=== PATIENT | male | born 1965 | race Caucasian/White ===

== ENCOUNTER → 2018-01-09 | Outpatient (CLI) | payer BC ==
--- NOTE | 2018-01-10 07:13 | US ---
EXAMINATION TYPE: US venous doppler duplex LE DATE OF EXAM: 01/09/2018 6:29 PM COMPARISON: NONE CLINICAL HISTORY: I83.891 Vericose of veins. Leg swelling SIDE PERFORMED: Bilateral TECHNIQUE: The lower extremity deep venous system is examined utilizing real time linear array sonog halima with graded compression, doppler sonography and color-flow sonography. VESSELS IMAGED: External Iliac Vein (EIV) Common Femoral Vein Deep Femoral Vein Greater Saphenous Vein * Femoral Vein Popliteal Vein Small Saphenous Vein * Proximal Calf Veins (* superficial vessels) Right Leg: Negative for DVT Left Leg: Negative for DVT Grayscale, color doppler, spectral doppler imaging performed of the deep veins of the bilateral lower extremities. There is normal flow, compressibility, vascular waveforms. IMPRESSION: No ultrasound evidence for acute DVT in either lower extremity. Compressible superficial or varicose veins documented at end of exam at bilateral calf level.
== END | disposition home or self-care (01) ==
LOC: RADUSMAIN 17:38
PROVIDERS: ATTEND Family Medicine
DX: R93.6 Abnormal findings on diagnostic imaging of limbs (principal); I83.891 Varicose veins of right lower extremity with other complications
CPT/HCPCS: 93970

== ENCOUNTER 2018-10-11 10:18 | Observation (INO) | payer BC ==
[2018-10-11] MEDS ORDERED: ASPIRIN 81 MG PO STA (10:29)
[2018-10-11] MEDS ORDERED: NITROGLYCERIN OINT 1 INCH/GM PACKET TOPICAL STA ×2 (10:29→10:40)
--- NOTE | 2018-10-11 10:30 | ED ---
General Adult HPI - General Chief complaint: Chest Pain Stated complaint: CHEST PAIN Time Seen by Provider: 10/11/18 10:27 Source: patient, RN notes reviewed Mode of arrival: ambulatory Limitations: no limitations - History of Present Illness Initial comments: Patient is a pleasant 53-year-old male presenting to the emergency Department with complaints of chest discomfort. Onset of symptoms was around 5 days ago. Symptoms started recurring again the past day or 2. Patient has tightness in his chest going towards left shoulder. Patient does feel a little bit lightheaded. Patient has been somewhat nauseated. No dyspnea. No diaphoresis. Patient did go to the ER [place] Saturday. - Related Data Home Medications Medication Instructions Recorded Confirmed Aspirin EC [Ecotrin Low Dose] 81 mg PO DAILY 10/11/18 10/11/18 Atorvastatin [Lipitor] 20 mg PO DAILY 10/11/18 10/11/18 Hydrochlorothiazide [Hydrodiuril] 25 mg PO DAILY 10/11/18 10/11/18 Lisinopril [Zestril] 10 mg PO DAILY 10/11/18 10/11/18 Allergies Allergy/AdvReac Type Severity Reaction Status Date / Time No Known Allergies Allergy Verified 10/11/18 10:55 Review of Systems ROS Statement: Those systems with pertinent positive or pertinent negative responses have been documented in the HPI. ROS Other: All systems not noted in ROS Statement are negative. Constitutional: Denies: fever Eyes: Denies: eye pain ENT: Denies: ear pain Respiratory: Denies: cough Cardiovascular: Reports: chest pain Endocrine: Denies: fatigue Gastrointestinal: Denies: abdominal pain Genitourinary: Denies: dysuria Musculoskeletal: Denies: back pain Skin: Denies: rash Neurological: Denies: weakness Past Medical History Past Medical History: Hypertension Additional Past Medical History / Comment(s): sarcoidosis History of Any Multi-Drug Resistant Organisms: None Reported Past Surgical History: Appendectomy, Orthopedic Surgery Past Psychological History: No Psychological Hx Reported Smoking Status: Never smoker Past Alcohol Use History: Occasional Past Drug Use History: None Reported General Exam Limitations: no limitations General appearance: alert, in no apparent distress Head exam: Present: atraumatic Eye exam: Present: normal appearance, PERRL ENT exam: Present: normal oropharynx Neck exam: Present: normal inspection Respiratory exam: Present: normal lung sounds bilaterally. Absent: chest wall tenderness Cardiovascular Exam: Present: regular rate, normal rhythm Expanded Peripheral pulses: 2+: Radial (R), Radial (L), Dorsalis Pedis (R), Dorsalis Pedis (L) GI/Abdominal exam: Present: soft. Absent: tenderness Extremities exam: Present: normal inspection. Absent: pedal edema, calf tenderness Neurological exam: Present: alert Psychiatric exam: Present: normal affect, normal mood Skin exam: Present: normal color Course Vital Signs 10/11/18 10/11/18 10/11/18 10:21 11:00 11:30 Temperature 97.9 F Pulse Rate 85 75 73 Respiratory 18 16 16 Rate Blood Pressure 154/102 148/107 134/94 O2 Sat by Pulse 98 96 97 Oximetry 10/11/18 12:15 Temperature Pulse Rate 76 Respiratory 16 Rate Blood Pressure O2 Sat by Pulse 98 Oximetry EKG Findings - EKG Comments: EKG Findings:: Normal sinus rhythm 81. MO 12. QRS 92. QT 362. QTC 420. Normal axis. Normal QRS. No acute ST change. Medical Decision Making - Medical Decision Making Patient reevaluated and updated. Case was discussed in detail with Dr. kate , who will admit covering for Dr. Kohler. No significant discomfort at this time. - Lab Data Result diagrams: 10/11/18 10:47 10/11/18 10:47 Lab Results 10/11/18 10/11/18 10/11/18 Range/Units 10:47 10:47 10:47 WBC 6.1 (3.8-10.6) k/uL RBC 5.05 (4.30-5.90) m/uL Hgb 16.9 (13.0-17.5) gm/dL Hct 47.3 (39.0-53.0) % MCV 93.6 (80.0-100.0) fL MCH 33.5 (25.0-35.0) pg MCHC 35.8 (31.0-37.0) g/dL RDW 12.6 (11.5-15.5) % Plt Count 212 (150-450) k/uL Neutrophils % 78 % Lymphocytes % 11 % Monocytes % 7 % Eosinophils % 2 % Basophils % 0 % Neutrophils # 4.7 (1.3-7.7) k/uL Lymphocytes # 0.6 L (1.0-4.8) k/uL Monocytes # 0.4 (0-1.0) k/uL Eosinophils # 0.1 (0-0.7) k/uL Basophils # 0.0 (0-0.2) k/uL PT (9.0-12.0) sec INR (<1.2) APTT (22.0-30.0) sec Sodium 140 (137-145) mmol/L Potassium 5.2 H (3.5-5.1) mmol/L Chloride 103 (98-107) mmol/L Carbon Dioxide 27 (22-30) mmol/L Anion Gap 10 mmol/L BUN 21 H (9-20) mg/dL Creatinine 1.03 (0.66-1.25) mg/dL Est GFR (CKD-EPI)AfAm >90 (>60 ml/min/1.73 sqM) Est GFR (CKD-EPI)NonAf 82 (>60 ml/min/1.73 sqM) Glucose 104 H (74-99) mg/dL Calcium 9.9 (8.4-10.2) mg/dL Magnesium 1.7 (1.6-2.3) mg/dL Total Bilirubin 1.2 (0.2-1.3) mg/dL AST 25 (17-59) U/L ALT 36 (21-72) U/L Alkaline Phosphatase 48 (38-126) U/L Creatine Kinase 93 (55-170) U/L CK-MB (CK-2) 0.7 (0.0-2.4) ng/mL Troponin I <0.012 (0.000-0.034) ng/mL Total Protein 8.0 (6.3-8.2) g/dL Albumin 5.1 H (3.5-5.0) g/dL 10/11/18 Range/Units 10:47 WBC (3.8-10.6) k/uL RBC (4.30-5.90) m/uL Hgb (13.0-17.5) gm/dL Hct (39.0-53.0) % MCV (80.0-100.0) fL MCH (25.0-35.0) pg MCHC (31.0-37.0) g/dL RDW (11.5-15.5) % Plt Count (150-450) k/uL Neutrophils % % Lymphocytes % % Monocytes % % Eosinophils % % Basophils % % Neutrophils # (1.3-7.7) k/uL Lymphocytes # (1.0-4.8) k/uL Monocytes # (0-1.0) k/uL Eosinophils # (0-0.7) k/uL Basophils # (0-0.2) k/uL PT 9.6 (9.0-12.0) sec INR 0.9 (<1.2) APTT 24.6 (22.0-30.0) sec Sodium (137-145) mmol/L Potassium (3.5-5.1) mmol/L Chloride (98-107) mmol/L Carbon Dioxide (22-30) mmol/L Anion Gap mmol/L BUN (9-20) mg/dL Creatinine (0.66-1.25) mg/dL Est GFR (CKD-EPI)AfAm (>60 ml/min/1.73 sqM) Est GFR (CKD-EPI)NonAf (>60 ml/min/1.73 sqM) Glucose (74-99) mg/dL Calcium (8.4-10.2) mg/dL Magnesium (1.6-2.3) mg/dL Total Bilirubin (0.2-1.3) mg/dL AST (17-59) U/L ALT (21-72) U/L Alkaline Phosphatase (38-126) U/L Creatine Kinase (55-170) U/L CK-MB (CK-2) (0.0-2.4) ng/mL Troponin I (0.000-0.034) ng/mL Total Protein (6.3-8.2) g/dL Albumin (3.5-5.0) g/dL - Radiology Data Radiology results: report reviewed (Computed tomography scan of the brain reveals non specific changes.), image reviewed (Chest x-ray shows no acute process) Disposition Clinical Impression: Chest pain Disposition: ADMITTED IP TO THIS HOSP Is patient prescribed a controlled substance at d/c from ED?: No Decision Time: 12:20
[2018-10-11 11:05] LABS: Basophils % (A) 0 %; Eosinophils # (A) 0.1 k/uL (0-0.7); Eosinophils % (A) 2 %; HCT 47.3 % (39.0-53.0); HGB 16.9 gm/dL (13.0-17.5); Lymphocytes # (A) 0.6 k/uL (1.0-4.8); Lymphocytes % (A) 11 %; MCH 33.5 pg (25.0-35.0); MCHC 35.8 g/dL (31.0-37.0); MCV 93.6 fL (80.0-100.0); Mean Platelet Volume 7.4; Monocytes # (A) 0.4 k/uL (0-1.0); Monocytes % (A) 7 %; Neutrophils # (A) 4.7 k/uL (1.3-7.7); Neutrophils % (A) 78 %; Platelet Count 212 k/uL (150-450); RBC 5.05 m/uL (4.30-5.90); RDW 12.6 % (11.5-15.5); WBC 6.1 k/uL (3.8-10.6)
--- NOTE | 2018-10-11 11:09 | XR ---
EXAMINATION TYPE: XR chest 2V DATE OF EXAM: 10/11/2018 COMPARISON: CT chest October 10, 2012 HISTORY: Chest pain and tightness since Saturday TECHNIQUE: Frontal and lateral views of the chest are obtained. FINDINGS: Faint nodular opacities right midlung redemonstrated with adjacent pleural thickening There is no new focal air space opacity, pleural effusion, or pneumothorax seen. The cardiac silhouette s ize is within normal limits. The osseous structures are intact. IMPRESSION: Chronic right midlung nodular opacities redemonstrated. No new acute cardiopulmonary pro cess.
[2018-10-11 11:15] LABS: ALT 36 U/L (21-72); AST 25 U/L (17-59); Albumin 5.1 g/dL (3.5-5.0); Alkaline Phosphatase 48 U/L (38-126); Anion Gap 10 mmol/L; Blood Urea Nitrogen 21 mg/dL (9-20); Calcium 9.9 mg/dL (8.4-10.2); Carbon Dioxide 27 mmol/L (22-30); Chloride 103 mmol/L (98-107); Creatine Kinase 93 U/L (55-170); Glucose 104 mg/dL (74-99); INR 0.9 (<1.2); Magnesium 1.7 mg/dL (1.6-2.3); Partial Thromboplastin Time 24.6 sec (22.0-30.0); Potassium 5.2 mmol/L (3.5-5.1); Prothrombin Time 9.6 sec (9.0-12.0); Sodium 140 mmol/L (137-145); Total Bilirubin 1.2 mg/dL (0.2-1.3)
[2018-10-11 11:40] LABS: Creatine Kinase MB 0.7 ng/mL (0.0-2.4); Troponin I <0.012 ng/mL (0.000-0.034)
--- NOTE | 2018-10-11 11:56 | CT ---
EXAMINATION TYPE: CT brain wo con DATE OF EXAM: 10/11/2018 HISTORY: Chest pain, tightness CT DLP: 1142.4 mGycm. Automated Exposure Control for Dose Reduction was Utilized. TECHNIQUE: CT scan of the head is performed without contrast. COMPARISON: None. FINDINGS: There is no acute intracranial hemorrhage or midline shift identified. Ventricles and sul ci are within normal limits in size for patient's age. There is vague areas of low-attenuation throu ghout the deep and periventricular white matter. Nonspecific finding without prior comparison. The g lobes are intact and the visualized sinuses are clear. IMPRESSION: No acute intracranial hemorrhage or midline shift. There is mild to moderate nonspecifi c white matter changes. Differential would favor product of chronic small vessel ischemic change in p atient of this age but other etiologies are not excluded without prior CT/MRI comparison.
[2018-10-11] MEDS ORDERED: NITROGLYCERIN SL TABS 0.4 MG TAB SUBLINGUAL PRN (12:23)
--- NOTE | 2018-10-11 16:29 | ECHOF ---
Referral Reason: MEASUREMENTS -------- HEIGHT: 182.9 cm WEIGHT: 84.8 kg BP: RVIDd: 3.2 cm (< 3.3) IVSd: 1.4 cm (0.6 - 1.1) LVIDd: 3.4 cm (3.9 - 5.3) LVPWd: 1.5 cm (0.6 - 1.1) IVSs: 1.4 cm LVIDs: 2.2 cm LVPWs: 1.9 cm Ao Diam: 2.5 cm (2.0 - 3.7) AV Cusp: 2.0 cm (1.5 - 2.6) LA Diam: 3.1 cm (2.7 - 3.8) MV EXCURSION: 15.271 mm (> 18.000) MV EF SLOPE: 39 mm/s (70 - 150) EPSS: 0.7 cm MV E Catrachito: 0.43 m/s MV DecT: 288 ms MV A Catr[place]ito: 0.71 m/s MV E/A Ratio: 0.60 RAP: 5.00 mmHg RVSP: 16.18 mmHg FINDINGS -------- Sinus rhythm. This was a technically good study. The left ventricular size is normal. There is moderate concentric left ventricular hypertrophy. O verall left ventricular systolic function is low-normal with, an EF between 50 - 55 %. The right ventricle is normal in size and function. The left atrium is normal in size. The right atrium is normal in size. The aortic valve is trileaflet, and appears structurally normal. No aortic stenosis or regurgitation. The mitral valve leaflets are mildly thickened. Mild mitral regurgitation is present. Trace tricuspid regurgitation present. The right ventricular systolic pressure, as measured by Dopp ler, is 16.18mmHg. Pulmonic valve appears structurally normal. The aortic root size is normal. Normal inferior vena cava with normal inspiratory collapse consistent with estimated right atrial pre ssure of 5 mmHg. The pericardium is normal. CONCLUSIONS -------- 1. Sinus rhythm. 2. This was a technically good study. 3. The left ventricular size is normal. 4. There is moderate concentric left ventricular hypertrophy. 5. Overall left ventricular systolic function is low-normal with, an EF between 50 - 55 %. 6. The right ventricle is normal in size and function. 7. The left atrium is normal in size. 8. The right atrium is normal in size. 9. The aortic valve is trileaflet, and appears structurally normal. No aortic stenosis or regurgitati on. 10. The mitral valve leaflets are mildly thickened. 11. Mild mitral regurgitation is present. 12. Trace tricuspid regurgitation present. 13. The right ventricular systolic pressure, as measured by Doppler, is 16.18mmHg. 14. Pulmonic valve appears structurally normal. 15. The aortic root size is normal. 16. Normal inferior vena cava with normal inspiratory collapse consistent with estimated right atrial pressure of 5 mmHg. 17. The pericardium is normal. TOLL TESTBOARD WORKER: Maryann So RDCS
[2018-10-11] MEDS: NITROGLYCERIN OINT 1 INCH/GM PACKET TOPICAL SCH ×2 (17:31→19:43)
--- NOTE | 2018-10-11 22:09 | HP ---
HISTORY AND PHYSICAL DATE OF ADMISSION: October 11, 2018. PRESENTING COMPLAINT: Chest pain. HISTORY OF PRESENTING COMPLAINT: A very pleasant 53 -year-old patient of Dr. Kohler whose chronic stable medical conditions include hypertension, hyperlipidemia, sarcoidosis under remission. About 6 days ago, the patient at work, felt dizzy, lightheaded, some chest tightness, went down to the [place] [facility]. They did cardiac enzymes, EKG. Patient was discharged. Next day he went to see his family doctor where he was set up with Cardiology for a stress test. Since that time, patient has not been feeling well. Does get dizzy, lightheaded, chest pressure, especially with activity, feels better sitting down. He finally decided to come in because of persistence of symptoms and be concerned for the same. REVIEW OF SYSTEMS: CONSTITUTIONAL: Tired. HEENT: None. RESPIRATORY: None. CARDIOVASCULAR: As above. GASTROINTESTINAL none. GENITOURINARY: None. MUSCULOSKELETAL: None. Dermatological, hematologic, lymphatic none. PSYCHIATRY none. NEUROLOGICAL: None. PAST MEDICAL HISTORY: Of hypertension, hyperlipidemia and sarcoidosis. PAST SURGICAL HISTORY: Appendectomy, chest tube in place. SOCIAL HISTORY: No smoking. No alcohol. . 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 FAMILY HISTORY: Family history of coronary artery disease. HOME MEDICATIONS: 1. Lipitor 20 mg a day. 2. Aspirin 81 mg a day. 3. Zestril 10 mg a day. 4. Hydrochlorothiazide 25 mg a day. ALLERGIES: None. PHYSICAL EXAMINATION: VITAL SIGNS: Temperature 97.4, pulse 66, respirations 16, blood pressure 154/82, pulse ox 96 percent on room air. GENERAL APPEARANCE: Average build, lying in bed, tired appearing. EYES: Pupils are equal. Conjunctivae normal. HEENT external appearance of nose and ears normal. Oral cavity normal. NECK: JVD not raised. Mass not palpable. RESPIRATORY: Effort normal. LUNGS: Clear. CARDIOVASCULAR: 1st and 2nd sounds normal. No edema. ABDOMEN: Soft, nontender. Liver and spleen not palpable. LYMPHATICS: No lymph nodes palpable in the neck and axilla. PSYCHIATRY: Alert and oriented x3. Mood and affect normal. NEUROLOGICAL: Pupils equal. Cranial nerves grossly intact. Power and sensation grossly intact. INVESTIGATIONS: White count 6.1, hemoglobin 16.9. Potassium 5.2, BUN 21, creatinine 1.03. Troponin times two negative. EKG tracing personally reviewed by me shows normal sinus rhythm. CT scan of the brain shows nonspecific findings. A 2D echocardiogram EF of 50-55 percent. Chest x-ray film personally reviewed by me shows prominent pulmonary artery. Some chronic changes. ASSESSMENT: 1. Possible unstable angina in a patient who has been having recurrent symptoms, especially with activity. Cardiac risk factors include hypertension, hyperlipidemia with negative troponin. 2. Essential hypertension. 3. Hyperlipidemia. 4. Sarcoidosis under remission. PLAN: The patient is currently on nitrate, aspirin, Lipitor. Because of persistent symptoms, the patient may need a cardiac catheterization. We will also do a carotid Doppler. Care was discussed with the patient. Questions were answered. Copy to Dr. Kohler. MMROSSIL / IJN: [id number] /
[2018-10-11 22:22] LABS: Cholesterol 193 mg/dL (<200); HDL Cholesterol 80 mg/dL (40-60); LDL Cholesterol,Calculated 93 mg/dL (0-99); Triglycerides 100 mg/dL (<150)
[2018-10-12] MEDS: NITROGLYCERIN OINT 1 INCH/GM PACKET TOPICAL SCH (03:51)
[2018-10-12] MEDS: ATORVASTATIN 20 MG TAB PO SCH (08:13)
[2018-10-12] MEDS: ENOXAPARIN 40 MG/0.4 ML SYRINGE SQ SCH (08:13)
[2018-10-12] MEDS: ASPIRIN 81 MG PO SCH (08:13)
[2018-10-12] MEDS: HYDROCHLOROTHIAZIDE 25 MG TAB PO SCH (08:14)
[2018-10-12] MEDS ORDERED: ASPIRIN 325 MG TAB PO SCH (09:00)
[2018-10-12] MEDS ORDERED: LISINOPRIL 10 MG TAB PO SCH (09:00)
[2018-10-12] MEDS ORDERED: LISINOPRIL 10 MG TAB PO STA (10:33)
--- NOTE | 2018-10-12 10:36 | P.CRDCN ---
History of Present Illness History of present illness: This is a pleasant 53-year-old male past medical history significant for sarcoidosis, hypertension and dyslipidemia. 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 We have been asked to see him in consultation for symptoms of chest discomfort. He states approximately one week ago while he was at work walking around doing is typical activity he started feeling a tight sensation in his chest in the left precordial region with radiation to the left shoulder. He also felt mildly short of breath at that time and was feeling intermittent headaches and dizziness. He went to the hospital in [place] for further evaluation. He states they checked an EKG and some blood work and told him everything was okay and he was sent home. Subsequently thereafter he saw his primary care physician and his blood pressure was noted to be uncontrolledon lisinopril. Hydrochlorothiazide added to his daily regimen and he was scheduled for an outpatient stress test this coming Saturday. However, over the weekend he has continued to have intermittent episodes of tightness in the left precordial region as well as dizziness and headache. He states the dizziness comes with position changes he notices it when he first gets up and whenever he does any sort of physical activity even just walking. On arrival to ED his blood pressure was 154/102 and 148/107. This morning was 140/91. His mother from a brain aneurysm, so the headaches he is having alarmed him greatly. CT brain obtained on admission reveals no acute intracranial hemorrhage or midline shift , mild to moderate nonspecific white matter changes differential would favor product of chronic small vessel ischemia. Echocardiogram obtained yesterday reveals preserved left ventricular systolic function with ejection fraction 50- 55%, moderate LVH and mild MR. EKG reveals sinus mechanism with no acute ST or T wave abnormalities noted. Chest x-ray with chronic right mid lung nodular opacities. No acute cardiopulmonary process noted. Laboratory data reviewed, WBC 6.1, hemoglobin 16.9, platelets 212, sodium 140, potassium 5.2, creatinine 1.03, cardiac enzymes negative 3, LDL 93 and HDL 80. Current cardiac medications include lisinopril 10 mg daily, hydrochlorothiazide 25 mg daily, atorvastatin 20 mg daily and aspirin 81 mg daily. At the time of my exam: CONSTITUTIONAL: Denies fever. Denies chills. EYES: Denies blurred vision. Denies vision changes. Denies eye pain. EARS, NOSE, MOUTH & THROAT: Denies headache. Denies sore throat. Denies ear pain. CARDIOVASCULAR: Denies chest pain. Denies shortness of breath. Denies orthopnea. Denies PND. Denies palpitations. RESPIRATORY: Denies cough. GASTROINTESTINAL: Denies abdominal pain. Denies diarrhea. Denies constipation. Denies nausea. Denies vomiting. MUSCULOSKELETAL: Denies myalgias. INTEGUMENTARY: Denies pruitis. Denies rash. NEUROLOGIC: Denies numbness. Denies tingling. Denies weakness. PSYCHIATRIC: Denies anxiety. Denies depression. ENDOCRINE: Denies fatigue. Denies weight change. Denies polydipsia. Denies polyurina. GENITOURINARY: Denies burning, hematuria or urgency with micturation. HEMATOLOGIC: Denies history of anemia. Denies bleeding. Blood pressure 140/91 heart rate 64 afebrile maintaining oxygen saturation on room air GENERAL: This is a 53-year-old male in no apparent distress at the time of my examination. HEENT: Head is atraumatic, normocephalic. Pupils are equal, round. Sclerae anicteric. Conjunctivae are clear. Mucous membranes of the mouth are moist. Neck is supple. There is no jugular venous distention. No carotid bruit is heard. LUNGS: Clear to auscultation no wheezes, rales or rhonchi. No chest wall tenderness is noted on palpation or with deep breathing. HEART: Regular rate and rhythm without murmurs, rubs or gallops. S1 and S2 heard. ABDOMEN: Soft, nontender. Bowel sounds are heard. No organomegaly noted. EXTREMITIES: No evidence of peripheral edema and no calf tenderness noted. VASCULAR: Radial and dorsalis pedis pulses palpated, no evidence of clubbing. NEUROLOGIC: Patient is awake, alert and oriented x3. ASSESSMENT Chest pain, atypical. An acute coronary event has been ruled out. Hypertension, uncontrolled causing dizziness and headaches Dyslipidemia PLAN An acute coronary event has been ruled out. Discontinue nitro-paste and increase activity and ambulation in the halls. Assess for any exertional chest discomfort. Increase lisinopril to 20 mg daily. NPO after midnight tonight for stress test in the morning. Further recommendations to follow based on clinical course. Nurse Practitioner note has been reviewed, I agree with a documented findings and plan of care. Patient was seen and examined. Past Medical History Past Medical History: Hyperlipidemia, Hypertension Additional Past Medical History / Comment(s): sarcoidosis History of Any Multi-Drug Resistant Organisms: None Reported Past Surgical History: Appendectomy, Orthopedic Surgery Additional Past Surgical History / Comment(s): chest tubes place Past Anesthesia/Blood Transfusion Reactions: No Reported Reaction Past Psychological History: No Psychological Hx Reported Smoking Status: Never smoker Past Alcohol Use History: Occasional Past Drug Use History: None Reported - Past Family History Father Additional Family Medical History / Comment(s): triple vessel CABG Mother Additional Family Medical History / Comment(s): brain aneurysm Medications and Allergies Home Medications Medication Instructions Recorded Confirmed Type Aspirin EC [Ecotrin Low Dose] 81 mg PO DAILY 10/11/18 10/11/18 History Atorvastatin [Lipitor] 20 mg PO DAILY 10/11/18 10/11/18 History Hydrochlorothiazide [Hydrodiuril] 25 mg PO DAILY 10/11/18 10/11/18 History Lisinopril [Zestril] 10 mg PO DAILY 10/11/18 10/11/18 History Allergies Allergy/AdvReac Type Severity Reaction Status Date / Time No Known Allergies Allergy Verified 10/11/18 10:55 Physical Exam Vitals: Vital Signs Temp Pulse Pulse Resp BP BP Pulse Ox 10/12/18 08:00 98.3 F 64 16 140/91 97 10/12/18 03:52 16 10/12/18 03:39 97.8 F 60 16 118/78 96 10/11/18 23:45 16 10/11/18 23:31 97.7 F 60 16 125/72 97 10/11/18 20:32 95 10/11/18 20:00 16 10/11/18 19:40 97.4 F L 66 16 155/82 96 10/11/18 16:42 98.7 F 78 18 156/93 97 10/11/18 16:06 98.8 F 85 18 130/87 97 10/11/18 15:45 98.3 F 76 16 136/72 97 10/11/18 14:00 16 10/11/18 12:52 16 10/11/18 12:15 76 16 98 10/11/18 11:30 73 16 134/94 97 10/11/18 11:00 75 16 148/107 96 Intake and Output 10/11/18 10/12/18 10/12/18 22:59 06:59 14:59 Other: Voiding Method Toilet Toilet Toilet # Voids 1 1 Results 10/11/18 10:47 10/11/18 10:47 Cardiac Enzymes 10/11/18 10/11/18 10/11/18 Range/Units 10:47 10:47 16:25 AST 25 (17-59) U/L CK-MB (CK-2) 0.7 (0.0-2.4) ng/mL Troponin I <0.012 <0.012 (0.000-0.034) ng/mL 10/11/18 Range/Units 22:38 AST (17-59) U/L CK-MB (CK-2) (0.0-2.4) ng/mL Troponin I <0.012 (0.000-0.034) ng/mL Coagulation 10/11/18 Range/Units 10:47 PT 9.6 (9.0-12.0) sec APTT 24.6 (22.0-30.0) sec Lipids 10/11/18 Range/Units 10:47 Triglycerides 100 (<150) mg/dL Cholesterol 193 (<200) mg/dL HDL Cholesterol 80 H (40-60) mg/dL CBC 10/11/18 Range/Units 10:47 WBC 6.1 (3.8-10.6) k/uL RBC 5.05 (4.30-5.90) m/uL Hgb 16.9 (13.0-17.5) gm/dL Hct 47.3 (39.0-53.0) % Plt Count 212 (150-450) k/uL Comprehensive Metabolic Panel 10/11/18 Range/Units 10:47 Sodium 140 (137-145) mmol/L Potassium 5.2 H (3.5-5.1) mmol/L Chloride 103 (98-107) mmol/L Carbon Dioxide 27 (22-30) mmol/L BUN 21 H (9-20) mg/dL Creatinine 1.03 (0.66-1.25) mg/dL Glucose 104 H (74-99) mg/dL Calcium 9.9 (8.4-10.2) mg/dL AST 25 (17-59) U/L ALT 36 (21-72) U/L Alkaline Phosphatase 48 (38-126) U/L Total Protein 8.0 (6.3-8.2) g/dL Albumin 5.1 H (3.5-5.0) g/dL Current Medications Generic Name Dose Route Start Last Admin Trade Name Freq PRN Reason Stop Dose Admin Aspirin 81 mg 10/12/18 09:00 10/12/18 08:13 Aspirin PO 81 mg DAILY [facility] Administration Atorvastatin Calcium 20 mg 10/12/18 09:00 10/12/18 08:13 Lipitor PO 20 mg DAILY [facility] Administration Enoxaparin Sodium 40 mg 10/12/18 09:00 10/12/18 08:13 Lovenox SQ 40 mg DAILY [facility] Administration Hydrochlorothiazide 25 mg 10/12/18 09:00 10/12/18 08:14 Hydrodiuril PO 25 mg DAILY [facility] Administration Lisinopril 10 mg 10/12/18 09:00 10/12/18 08:13 Zestril PO 10 mg DAILY [facility] Administration Nitroglycerin 1 inch 10/11/18 18:00 10/12/18 03:51 Nitro-Bid Oint TOPICAL Not Given Q6HR [facility] Nitroglycerin 0.4 mg 10/11/18 12:23 Nitrostat SUBLINGUAL Q5M PRN Chest Pain Sodium Chloride 10 ml 10/11/18 21:00 10/12/18 08:14 Saline Flush IV 10 ml BID [facility] Administration Intake and Output 10/11/18 10/12/18 10/12/18 22:59 06:59 14:59 Other: Voiding Method Toilet Toilet Toilet # Voids 1 1 10/11/18 10:47 10/11/18 10:47
[2018-10-12 11:25] VITALS: BMI 26.0
--- NOTE | 2018-10-12 13:37 | US ---
EXAMINATION TYPE: US carotid duplex BILAT DATE OF EXAM: 10/12/2018 COMPARISON: NONE CLINICAL HISTORY: 53-year-old male dizziness. Chest pain, no h/o stroke TECHNIQUE: Carotid duplex ultrasound examination. Indirect Doppler criteria is utilized. FINDINGS: EXAM MEASUREMENTS: RIGHT: Peak Systolic Velocity (PSV) cm/sec ----- Right CCA: 90.5 ----- Right ICA: 111.7 ----- Right ECA: 82.3 ICA/CCA ratio: 1.3 RIGHT: End Diastole cm/sec ----- Right CCA: 27.8 ----- Right ICA: 52.2 ----- Right ECA: 9.0 LEFT: Peak Systolic Velocity (PSV) cm/sec ----- Left CCA: 90.5 ----- Left ICA: 93.8 ----- Left ECA: 100.4 ICA/CCA ratio: 1.0 LEFT: End Diastole cm/sec ----- Left CCA: 26.7 ----- Left ICA: 26.7 ----- Left ECA: 15.7 VERTEBRALS (direction of flow): Right Vertebral: Antegrade Left Vertebral: Antegrade Rhythm: Normal Deputy Jailer notes: Mild homogeneous plaque seen with no significant stenosis. IMPRESSION: No hemodynamically significant stenosis appreciated in either internal carotid artery. Criteria for Assigning % of Stenosis / Diameter reduction (Estimation based on the indirect measurements of the internal carotid artery velocities (ICA PSV). 1. Normal (no stenosis)=ICA PSV < 125 cm/s: ratio < 2.0: ICA EDV<40 cm/s. 2. Less than 50% stenosis=ICA PSV < 125 cm/s: ratio < 2.0: ICA EDV<40 cm/s. 3. 50 to 69% stenosis=ICA PSV of 125 to 230 cm/s: ration 2.0 ? 4.0: ICA EDV 40-100 cm/s. 4. Greater than 70% stenosis to near occlusion= ICA PSV > 230 cm/s: ratio > 4.0: ICA EDV > 100 cm/s. 5. Near occlusion= ICA PSV velocities may be low or undetectable: variable ratio and ICA EDV. 6. Total occlusion=unable to detect flow.
--- NOTE | 2018-10-12 21:28 | PN ---
PROGRESS NOTE DATE OF SERVICE: October 12, 2018. PRESENTING COMPLAINT: Chest pain. INTERVAL HISTORY: Patient admitted with chest pain, has cardiac risk factors. No further episodes. Awaiting a stress test. Lying in bed. REVIEW OF SYSTEMS: Done for constitutional, cardiovascular, GI, pulmonary and relevant findings as above. CURRENT MEDICATIONS: Reviewed that include aspirin. PHYSICAL EXAMINATION: VITAL SIGNS: Temperature 97.7. Pulse 55, respiratory rate 18, blood pressure 148/75, pulse ox 96 percent on room air. GENERAL APPEARANCE: Lying in bed comfortable. Eyes: Pupils equal. Conjunctivae normal. NECK: JVD not raised. Mass not palpable. RESPIRATORY: Effort normal. LUNGS are clear. CARDIOVASCULAR: 1st and 2nd sounds normal. No edema. ABDOMEN: Soft, nontender. Liver and spleen not palpable. PSYCHIATRY: Alert and oriented times three. Mood and affect normal. INVESTIGATIONS: Potassium 4.5. Troponin negative. ASSESSMENT: 1. Possible unstable angina in a patient with cardiac risk factors awaiting stress test. 2. Essential hypertension. 3. Hyperlipidemia. 4. Sarcoidosis in remission. PLAN: Continue current medication and treatment plan. Carotid Doppler was unremarkable. Care was discussed with the patient. MMODL / IJN: [id number] /
[2018-10-13 03:38] VITALS: RESP 18
[2018-10-13] MEDS ORDERED: LISINOPRIL 20 MG TAB PO SCH (09:00)
--- NOTE | 2018-10-13 10:07 | P.PN ---
Subjective This is a pleasant 53-year-old male past medical history significant for sarcoidosis, hypertension and dyslipidemia. He denies history of coronary artery disease and does not follow regularly with a stock counter. He is seen and examined sitting up in bed with his at the bedside. He states yesterday while he was up and walking the halls he had another episode of chest discomfort, headache and dizziness. He sat down on the bed and his symptoms improved. Orthostatic blood pressures obtained are unremarkable and he was asymptomatic. Blood pressure this morning 113/73 heart rate 59 afebrile and maintaining oxygen saturation on room air. GENERAL: This is a 53-year-old male in no apparent distress at the time of my examination. HEENT: Head is atraumatic, normocephalic. Pupils are equal, round. Sclerae anicteric. Conjunctivae are clear. Mucous membranes of the mouth are moist. Neck is supple. There is no jugular venous distention. No carotid bruit is heard. LUNGS: Clear to auscultation no wheezes, rales or rhonchi. No chest wall tenderness is noted on palpation or with deep breathing. HEART: Regular rate and rhythm without murmurs, rubs or gallops. S1 and S2 heard. EXTREMITIES: No evidence of peripheral edema and no calf tenderness noted. ASSESSMENT Chest pain, atypical. An acute coronary event has been ruled out. Hypertension, uncontrolled causing dizziness and headaches Dyslipidemia PLAN Proceed with stress echocardiogram to assess for stress induced ischemia. If abnormality seen we will consider coronary angiography. If stress test is normal he is stable from a cardiac perspective. His symptoms may be related to blood pressure fluctuations, recommend he obtain a cuff to check his blood pressures at home and keep a log to bring with him to his follow up appointment with Dr. Hutchinson. Nurse Practitioner note has been reviewed, I agree with a documented findings and plan of care. Patient was seen and examined. Objective - Vital Signs Vital signs: Vital Signs Temp 98.0 F 10/13/18 08:00 Pulse 59 L 10/13/18 08:00 Resp 18 10/13/18 08:00 BP 113/73 10/13/18 08:00 Pulse Ox 95 10/13/18 08:29 Intake & Output 10/12/18 10/13/18 10/13/18 18:59 06:59 18:59 Weight 84.822 kg Other: Voiding Method Toilet Toilet # Voids 1 - Labs CBC & Chem 7: 10/11/18 10:47 10/12/18 10:20
[2018-10-13] MEDS: ATORVASTATIN 20 MG TAB PO SCH (11:44)
[2018-10-13] MEDS: HYDROCHLOROTHIAZIDE 25 MG TAB PO SCH (11:44)
[2018-10-13] MEDS: ASPIRIN 81 MG PO SCH (11:44)
[2018-10-13] MEDS: ENOXAPARIN 40 MG/0.4 ML SYRINGE SQ SCH (11:45)
[2018-10-13] MEDS ORDERED: LISINOPRIL 10 MG TAB PO SCH (12:00)
--- NOTE | 2018-10-13 15:08 | ECHOS ---
STRESS ECHOCARDIOGRAM INDICATIONS: Chest pain. BASELINE HEART RATE: 72 BASELINE BLOOD PRESSURE: 119/67 MAXIMUM HEART RATE: 150 MAXIMUM BLOOD PRESSURE: 169/63 85% MPHR: 140 100% MPHR: 165 METS: 10.3 MAXIMUM STAGE REACHED: 3 TOTAL EXERCISE TIME: 9:00 CLINICAL INFORMATION: Baseline rhythm sinus mechanism rate 72, normal axis, poor R-wave progression. Baseline blood pressure 119/67 mmHg. Patient exercised on Aneudy protocol for 9 minutes reaching peak rate of 150 beats per minute which is equal to 91% maximum predicted heart rate. Peak blood pressure 169/63 mmHg. Test was terminated secondary to fatigue. There was no chest pain. Electrocardiograph monitoring revealed no evidence of diagnostic ischemic ST deviation. FINDINGS: Baseline echocardiogram revealed normal wall motion. At peak exercise, there was normal wall motion augmentation with no hypokinesis or dyskinesis. CONCLUSION: 1. Average exercise tolerance with normal cardiac response to exercise. 2. Normal stress echocardiogram with no evidence of stress-induced ischemia. MMODL / IJN: [id number] /
[2018-10-13 15:50] VITALS: BP 131/83; PULSE 71; TEMP 97.7
--- NOTE | 2018-10-14 06:11 | DS ---
DISCHARGE SUMMARY DATE OF ADMISSION: 10/11/2018 DATE OF DISCHARGE: 10/13/2018 FINAL DIAGNOSES: 1. Chest pain, probably musculoskeletal. 2. Essential hypertension. 3. Hyperlipidemia. 4. Sarcoidosis under remission. HOSPITAL COURSE: This pleasant gentleman presented with episode of feeling dizzy, lightheaded, some chest tightness. Troponins were negative. Patient did have a carotid Doppler that was unremarkable. CT scan of the brain did not show any acute event. A 2-D echocardiogram showed the EF of 50% to 55%. No wall motion abnormality. Stress echocardiogram was negative. The patient cleared by Cardiology to be discharged. Patient is symptom-free up and about. CONSULTATION: Dr. Hutchinson from Cardiology. On examination, temperature 97.7 pulse 71, respiration 18, blood pressure 131/83 pulse ox 96% on room air. LUNGS: Fair entry. CARDIOVASCULAR: First and second sounds normal. HOME MEDICATIONS: 1. Aspirin 81 mg a day. 2. Lipitor 20 mg a day. 3. Hydrochlorothiazide 25 mg a day. 4. Zestril 10 mg p.o. daily. Follow up with Dr. Kohler in one week. Follow up with Dr. Hutchinson on 10/30/2018. MMODL / IJN: [id number] /
[2018-10-14] MEDS ORDERED: LISINOPRIL 10 MG TAB PO SCH (09:00)
== END 2018-10-13 16:11 | disposition home or self-care (01) ==
LOC: EC 10:18 → 1SOBS 12:23
PROVIDERS: ADMIT Hospitalist; ATTEND Hospitalist
DX: R07.89 Other chest pain (principal); E78.5 Hyperlipidemia, unspecified; I10 Essential (primary) hypertension; D86.9 Sarcoidosis, unspecified; Z90.49 Acquired absence of other specified parts of digestive tract; Z79.82 Long term (current) use of aspirin; Z79.899 Other long term (current) drug therapy; Z82.49 Family history of ischemic heart disease and other diseases of the circulatory system
CPT/HCPCS: 96372 ×2; 99285; 36415; 94760; 93005; 93306; 93351; 80061; 80053; 82550; 82553; 83735; 84132; 84484; 85025; 85610; 85730; 71046; 93880; 70450; G0378 ×3; J1650 ×2

== ENCOUNTER 2019-09-23 13:38 | Observation (INO) | payer BC ==
[2019-09-23 14:14] LABS: Basophils % (A) 1 %; Eosinophils # (A) 0.1 k/uL (0-0.7); Eosinophils % (A) 2 %; HCT 41.9 % (39.0-53.0); HGB 14.9 gm/dL (13.0-17.5); Lymphocytes # (A) 0.6 k/uL (1.0-4.8); Lymphocytes % (A) 12 %; MCH 34.2 pg (25.0-35.0); MCHC 35.6 g/dL (31.0-37.0); MCV 96.1 fL (80.0-100.0); Mean Platelet Volume 7.7; Monocytes # (A) 0.3 k/uL (0-1.0); Monocytes % (A) 7 %; Neutrophils # (A) 3.8 k/uL (1.3-7.7); Neutrophils % (A) 75 %; Platelet Count 214 k/uL (150-450); RBC 4.36 m/uL (4.30-5.90); RDW 12.5 % (11.5-15.5); WBC 5.1 k/uL (3.8-10.6)
[2019-09-23 14:21] LABS: Albumin 4.6 g/dL (3.5-5.0); Calcium 9.4 mg/dL (8.4-10.2); INR 0.9 (<1.2); Partial Thromboplastin Time 23.8 sec (22.0-30.0); Potassium 4.2 mmol/L (3.5-5.1); Prothrombin Time 9.6 sec (9.0-12.0); Total Protein 7.4 g/dL (6.3-8.2)
[2019-09-23] MEDS ORDERED: ASPIRIN 81 MG PO STA (14:51)
[2019-09-23] MEDS ORDERED: NITROGLYCERIN OINT 1 INCH/GM PACKET TOPICAL STA (14:51)
--- NOTE | 2019-09-23 14:58 | ED ---
General Adult HPI - General Chief complaint: Chest Pain Stated complaint: Chest pain Time Seen by Provider: 09/23/19 14:30 Source: patient, RN notes reviewed Mode of arrival: ambulatory Limitations: no limitations - History of Present Illness Initial comments: Patient is a pleasant 54-year-old male presenting to emergency Department from primary care physician with chest discomfort. Patient has had some lightheadedness over the past several days or weeks. Patient has some burning in his chest today. Burning is mild rated 3/10. No radiation. No associated dyspnea or nausea or diaphoresis. No history of similar symptoms previously. - Related Data Home Medications Medication Instructions Recorded Confirmed Aspirin EC [Ecotrin Low Dose] 81 mg PO DAILY 10/11/18 10/11/18 Atorvastatin [Lipitor] 20 mg PO DAILY 10/11/18 10/11/18 Hydrochlorothiazide [Hydrodiuril] 25 mg PO DAILY 10/11/18 10/11/18 Lisinopril [Zestril] 10 mg PO DAILY 10/11/18 10/11/18 Allergies Allergy/AdvReac Type Severity Reaction Status Date / Time No Known Allergies Allergy Verified 10/11/18 10:55 Review of Systems ROS Statement: Those systems with pertinent positive or pertinent negative responses have been documented in the HPI. ROS Other: All systems not noted in ROS Statement are negative. Constitutional: Denies: fever Eyes: Denies: eye pain ENT: Denies: ear pain Respiratory: Denies: dyspnea Cardiovascular: Reports: as per HPI, chest pain Endocrine: Reports: fatigue Gastrointestinal: Denies: abdominal pain Genitourinary: Denies: dysuria Musculoskeletal: Denies: back pain Skin: Denies: rash Neurological: Denies: weakness Past Medical History Past Medical History: Hyperlipidemia, Hypertension Additional Past Medical History / Comment(s): sarcoidosis History of Any Multi-Drug Resistant Organisms: None Reported Past Surgical History: Appendectomy, Orthopedic Surgery Additional Past Surgical History / Comment(s): chest tubes place Past Anesthesia/Blood Transfusion Reactions: No Reported Reaction Past Psychological History: No Psychological Hx Reported Smoking Status: Never smoker Past Alcohol Use History: Occasional Past Drug Use History: None Reported - Past Family History Father Additional Family Medical History / Comment(s): triple vessel CABG Mother Additional Family Medical History / Comment(s): brain aneurysm General Exam Limitations: no limitations General appearance: alert, in no apparent distress Head exam: Present: normocephalic Eye exam: Present: normal appearance, PERRL ENT exam: Present: normal oropharynx Neck exam: Present: normal inspection Respiratory exam: Present: normal lung sounds bilaterally. Absent: chest wall tenderness Cardiovascular Exam: Present: regular rate, normal rhythm Expanded Peripheral pulses: 2+: Radial (R), Radial (L), Dorsalis Pedis (R), Dorsalis Pedis (L) GI/Abdominal exam: Present: soft. Absent: tenderness Extremities exam: Present: normal inspection. Absent: pedal edema, calf tenderness Neurological exam: Present: alert Psychiatric exam: Present: normal affect, normal mood Skin exam: Present: normal color Course Vital Signs 09/23/19 09/23/19 09/23/19 13:43 14:49 15:36 Temperature 98.0 F Pulse Rate 72 68 69 Respiratory 20 18 18 Rate Blood Pressure 150/91 140/100 128/78 O2 Sat by Pulse 99 98 98 Oximetry EKG Findings - EKG Comments: EKG Findings:: Normal sinus rhythm 64. AR 168. QRS 90. QT 420. QTc 433. Normal axis. Normal QRS. No acute ST change. EKG from office is also reviewed Medical Decision Making - Medical Decision Making Patient reevaluated and resting comfortably in bed. Patient and family updated on results and plan. Case was discussed in detail with Dr. Carson, covering for Dr. Hou, who admits for Dr. Kohler. - Lab Data Result diagrams: 09/23/19 13:55 09/23/19 13:55 Lab Results 09/23/19 09/23/19 09/23/19 Range/Units 13:55 13:55 13:55 WBC 5.1 (3.8-10.6) k/uL RBC 4.36 (4.30-5.90) m/uL Hgb 14.9 (13.0-17.5) gm/dL Hct 41.9 (39.0-53.0) % MCV 96.1 (80.0-100.0) fL MCH 34.2 (25.0-35.0) pg MCHC 35.6 (31.0-37.0) g/dL RDW 12.5 (11.5-15.5) % Plt Count 214 (150-450) k/uL Neutrophils % 75 % Lymphocytes % 12 % Monocytes % 7 % Eosinophils % 2 % Basophils % 1 % Neutrophils # 3.8 (1.3-7.7) k/uL Lymphocytes # 0.6 L (1.0-4.8) k/uL Monocytes # 0.3 (0-1.0) k/uL Eosinophils # 0.1 (0-0.7) k/uL Basophils # 0.0 (0-0.2) k/uL PT 9.6 (9.0-12.0) sec INR 0.9 (<1.2) APTT 23.8 (22.0-30.0) sec Sodium 139 (137-145) mmol/L Potassium 4.2 (3.5-5.1) mmol/L Chloride 102 (98-107) mmol/L Carbon Dioxide 29 (22-30) mmol/L Anion Gap 8 mmol/L BUN 18 (9-20) mg/dL Creatinine 1.16 (0.66-1.25) mg/dL Est GFR (CKD-EPI)AfAm 82 (>60 ml/min/1.73 sqM) Est GFR (CKD-EPI)NonAf 71 (>60 ml/min/1.73 sqM) Glucose 97 (74-99) mg/dL Calcium 9.4 (8.4-10.2) mg/dL Magnesium 2.0 (1.6-2.3) mg/dL Total Bilirubin 1.0 (0.2-1.3) mg/dL AST 34 (17-59) U/L ALT 28 (4-49) U/L Alkaline Phosphatase 47 (38-126) U/L Troponin I (0.000-0.034) ng/mL Total Protein 7.4 (6.3-8.2) g/dL Albumin 4.6 (3.5-5.0) g/dL 09/23/19 Range/Units 13:55 WBC (3.8-10.6) k/uL RBC (4.30-5.90) m/uL Hgb (13.0-17.5) gm/dL Hct (39.0-53.0) % MCV (80.0-100.0) fL MCH (25.0-35.0) pg MCHC (31.0-37.0) g/dL RDW (11.5-15.5) % Plt Count (150-450) k/uL Neutrophils % % Lymphocytes % % Monocytes % % Eosinophils % % Basophils % % Neutrophils # (1.3-7.7) k/uL Lymphocytes # (1.0-4.8) k/uL Monocytes # (0-1.0) k/uL Eosinophils # (0-0.7) k/uL Basophils # (0-0.2) k/uL PT (9.0-12.0) sec INR (<1.2) APTT (22.0-30.0) sec Sodium (137-145) mmol/L Potassium (3.5-5.1) mmol/L Chloride (98-107) mmol/L Carbon Dioxide (22-30) mmol/L Anion Gap mmol/L BUN (9-20) mg/dL Creatinine (0.66-1.25) mg/dL Est GFR (CKD-EPI)AfAm (>60 ml/min/1.73 sqM) Est GFR (CKD-EPI)NonAf (>60 ml/min/1.73 sqM) Glucose (74-99) mg/dL Calcium (8.4-10.2) mg/dL Magnesium (1.6-2.3) mg/dL Total Bilirubin (0.2-1.3) mg/dL AST (17-59) U/L ALT (4-49) U/L Alkaline Phosphatase (38-126) U/L Troponin I <0.012 (0.000-0.034) ng/mL Total Protein (6.3-8.2) g/dL Albumin (3.5-5.0) g/dL - Radiology Data Radiology results: image reviewed (Chest x-ray question some reticular changes however this is also redemonstrated) Disposition Clinical Impression: Chest pain Disposition: ADMITTED IP TO THIS HOSP Is patient prescribed a controlled substance at d/c from ED?: No Referrals: Sree Kohler MD [Primary Care Provider] - 1-2 days Decision Time: 16:07
--- NOTE | 2019-09-23 15:24 | XR ---
EXAMINATION TYPE: XR chest 2V DATE OF EXAM: 09/23/2019 COMPARISON: 10/11/2018 HISTORY: Chest pain TECHNIQUE: Frontal and lateral views of the chest are obtained. FINDINGS: Fine reticular opacities in the peripheral right upper lung and right infrahilar region ar e redemonstrated. Remainder the lungs are well aerated. Cardiomediastinal split is stable and upper l imits of normal. Osseous structures are grossly intact. Mild degenerative change of the spine. IMPRESSION: Faint reticular opacities in the right upper lung and right infrahilar region. Endobronc hial or atypical infectious etiologies are considerations.
[2019-09-23] MEDS ORDERED: NITROGLYCERIN SL TABS 0.4 MG TAB SUBLINGUAL PRN (16:07)
[2019-09-23 17:45] VITALS: RESP 18
--- NOTE | 2019-09-23 17:58 | P.HPIM ---
History of Present Illness Chief Complaint: Chest pain This is a 54-year-old male who is coming to the hospital for evaluation of chest pain. Patient was sent from primary care physician's office. Past medical history includes hyperlipidemia, hypertension and sarcoidosis. Patient described chest pain as burning his mild intensity no radiation no associated dyspnea nausea diaphoresis. Patient feels the pain is located mostly on the right side of his chest. He does notice that deep breaths and coughs provoked the pain. He did not notice any changes in the pain when sitting up. Patient also reports that for the last few weeks he will be feeling overall not well. He was concerned that he is having a flare up of sarcoidosis and went to his primary care doctor for evaluation. He did have some episodes of mild orthostatic lightheadedness over the last few weeks. He denies any recent URI like symptoms or GI symptoms. Denies any shortness of breath cough and joint swelling either redness or skin rashes. His home medication has been stable and no recent adjustments are no medications or [id number] medications. Emergency Department his basic blood work CBC and CMP were within normal limits. First troponin normal. EKG without any acute changes and in normal sinus rhythm. Chest x-ray shows some faint reticular opacities in the right upper lung and the right infrahilar region suggestive of endobronchial and atypical infectious etiology. No previous chest x-ray available for comparison. Echocardiogram from about a year ago showed moderate LVH with preserved EF and no significant valvular abnormalities. Patient was diagnosed with pulmonary sarcoidosis about 14 years ago. He received a couple of times course of prednisone for it. He is not aware of any extrapulmonary enrollments. He had been following with Dr. Carlin. Last time he went for pulmonary visit was about 4-5 years ago. Patient states that he had stress test about a year ago that was negative. Past Medical History Past Medical History: Hyperlipidemia, Hypertension Additional Past Medical History / Comment(s): sarcoidosis History of Any Multi-Drug Resistant Organisms: None Reported Past Surgical History: Appendectomy, Orthopedic Surgery Additional Past Surgical History / Comment(s): chest tubes place Past Anesthesia/Blood Transfusion Reactions: No Reported Reaction Past Psychological History: No Psychological Hx Reported Smoking Status: Never smoker Past Alcohol Use History: Occasional Past Drug Use History: None Reported - Past Family History Father Additional Family Medical History / Comment(s): triple vessel CABG Mother Additional Family Medical History / Comment(s): brain aneurysm Medications and Allergies Home Medications Medication Instructions Recorded Confirmed Type RX: Aspirin EC [Ecotrin Low Dose] 81 mg PO DAILY 10/11/18 09/23/19 History RX: Atorvastatin [Lipitor] 20 mg PO DAILY 10/11/18 09/23/19 History RX: Hydrochlorothiazide 25 mg PO DAILY 10/11/18 09/23/19 History [Hydrodiuril] RX: Lisinopril [Zestril] 10 mg PO DAILY 10/11/18 09/23/19 History Allergies Allergy/AdvReac Type Severity Reaction Status Date / Time No Known Allergies Allergy Verified 09/23/19 16:54 Physical Exam Vitals: Vital Signs Temp Pulse Resp BP Pulse Ox 09/23/19 16:53 64 16 131/81 96 09/23/19 15:36 69 18 128/78 98 09/23/19 14:49 68 18 140/100 98 09/23/19 13:43 98.0 F 72 20 150/91 99 Intake and Output 09/23/19 09/23/19 09/23/19 06:59 14:59 22:59 Other: Weight 89.358 kg Vital Signs: I have reviewed the vital signs. GENERAL: Well-nourished, Well-developed , no apparent distress, cooperative Eyes: PERRL, extraoculry movements intact, clear conjunctiva Head: : Atraumatic external nose and ears, oropharyngeal mucosa is moist without lesions or exudates Neck: Symmetric, trachea midline, No thyromegaly, no masses or neck vain pulsation, no neck rigidity CVS: +S1/S2, No murmurs or gallops. Peripheral pulses 2+ and equal in all extremities. RESP: Unlabored respiratory effort. He has tenderness along the right costochondral joints reproducible pain. Normal breath sounds. Inspiratory basilar crackles more on the left.. Abdomen: Bowel sounds present in all 4 quadrants, Soft to palpation, Nontender/Nondistended, No hepatosplenomegaly, no hernias or masses, no CVA tnderness Musculoskeletal: Extremities w/o deformity, No cyanosis or clubbing, no joint swelling Skin: Warm, Dry. No rashes or lesions Neuro: anesthesiologist physician II-XII grossly intact, motor strenght 5/5 i upper and lower extremities, no clonus, patellar DTRs 2+ and sympetrical Psych: Awake, Alert, & Oriented (AAO) x3 Appropriate mood and affect Results CBC & Chem 7: 09/23/19 13:55 09/23/19 13:55 Labs: Abnormal Lab Results - Last 24 Hours (Table) 09/23/19 Range/Units 13:55 Lymphocytes # 0.6 L (1.0-4.8) k/uL Assessment and Plan Assessment: 1. Chest pain 2. Pulmonary circuit doses 3. Hypertension Plan: Patient presenting with chest pain that is atypical in nature provoked by cough and deep breaths and reproducible with palpation over the right costochondral joints. At this time cardiology has been consulted for evaluation and we will await their input. I will add pulmonary consultation as well in view of history of sarcoidosis and some inflammatory characteristics of this pain, add CRP, ESR and angiotensin- converting enzyme level. 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
[2019-09-23] MEDS: NITROGLYCERIN OINT 1 INCH/GM PACKET TOPICAL SCH ×2 (19:04→23:47)
[2019-09-24 03:10] LABS: Cholesterol 196 mg/dL (<200); HDL Cholesterol 63 mg/dL (40-60); LDL Cholesterol,Calculated 93 mg/dL (0-99); Triglycerides 199 mg/dL (<150)
[2019-09-24 04:02] VITALS: TEMP 98.1
[2019-09-24] MEDS: NITROGLYCERIN OINT 1 INCH/GM PACKET TOPICAL SCH (05:33)
[2019-09-24 08:47] VITALS: BP 118/73; PULSE 54
[2019-09-24] MEDS ORDERED: LISINOPRIL 10 MG TAB PO SCH (09:00)
[2019-09-24] MEDS ORDERED: ASPIRIN 81 MG PO SCH (09:00)
[2019-09-24] MEDS ORDERED: HYDROCHLOROTHIAZIDE 25 MG TAB PO SCH (09:00)
[2019-09-24] MEDS ORDERED: ATORVASTATIN 20 MG TAB PO SCH (09:00)
[2019-09-24] MEDS ORDERED: ASPIRIN 325 MG TAB PO SCH (09:00)
--- NOTE | 2019-09-24 09:37 | P.CRDCN ---
History of Present Illness History of present illness: HISTORY OF PRESENTING ILLNESS This is a pleasant 54-year-old male past medical history significant for hypertension, dyslipidemia and sarcoidosis. Denies prior history of coronary artery disease and does not follow in the office with a instructor physical education. We have been asked to see in consultation for chest pain. He states for the previous several weeks he has been experiencing upper respiratory congestion, a full sensation in his chest and intermittent feelings of lightheadedness with position changes. He states when he bends over to do any type of activity such as tying his shoes when he stands up he feels lightheaded. The symptoms do subside after a couple of seconds. He states he feels a full sensation in his chest described as a burning. This is not exacerbated by activity or exertion. There is no radiation to the arms, back, neck or jaw. He denies associated sh ortness of breath, palpitations, nausea, vomiting or diaphoresis. He symptoms have been ongoing however seemed to have intensified yesterday prompting him to come in for further evaluation. 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 His pain is slightly exacerbated by deep inspiration. DIAGNOSTICS EKG reveals sinus mechanism with no acute ST or T wave abnormalities noted. Telemetry tracings unremarkable. Chest xray reveals faint reticular opacities in the right upper lung and right infrahilar region, endobronchial or atypical infectious etiologies are considered. Laboratory reviewed, CBC unremarkable, ESR 8, sodium 139, potassium 4.2, creatinine 1.16, magnesium 2.0, cardiac enzymes negative 3, CRP less than 5, LDL 93 and HDL 63. Current cardiac medications include aspirin 81 mg daily, atorvastatin 20 mg daily, hydrochlorothiazide 25 mg daily and lisinopril 10 mg daily. Most recent stress test performed October 2018 was a stress echocardiogram that was negative for stress-induced ischemia. Most recent echocardiogram obtained October 2018 reveals preserved LV systolic function with ejection fraction 50-55%. REVIEW OF SYSTEMS At the time of my exam: CONSTITUTIONAL: Denies fever or chills. CARDIOVASCULAR: Denies chest pain, shortness of breath, orthopnea, PND or palpitations. RESPIRATORY: Denies cough. GASTROINTESTINAL: Denies abdominal pain, diarrhea, constipation, nausea or vomiting. MUSCULOSKELETAL: Denies myalgias. NEUROLOGIC: Denies numbness, tingling or weakness. ENDOCRINE: Denies fatigue, weight change, polydipsia or polyurina. GENITOURINARY: Denies burning, hematuria or urgency with micturation. HEMATOLOGIC: Denies history of anemia or bleeding. PHYSICAL EXAMINATION Blood pressure 118/73 heart rate 54 afebrile and maintaining oxygen saturation on room air. CONSTITUTIONAL: No apparent distress. HEENT: Head is normocephalic. Pupils are equal, round. Sclerae anicteric. Mucous membranes of the mouth are moist. No JVD. No carotid bruit. CHEST EXAMINATION: Lungs are clear to auscultation. No chest wall tenderness is noted on palpation or with deep breathing. HEART EXAMINATION: Regular rate and rhythm. S1, S2 heard. No murmurs, gallops or rub. ABDOMEN: Soft, nontender. Positive bowel sounds. EXTREMITIES: 2+ peripheral pulses, no lower extremity edema and no calf tenderness. NEUROLOGIC EXAMINATION: Patient is awake, alert and oriented x3. ASSESSMENT Chest pain, atypical. An acute event has been ruled out. Sarcoidosis Hypertension Dyslipidemia PLAN An acute event has been ruled out. Symptoms are atypical for angina. Check for orthostatic changes. Perform exercise stress test to assess for stress induced ischemia. Recommend further pulmonary evaluation. If stress test is normal he is stable for discharge from a cardiac perspective. Thank you kindly for this consultation. Nurse Practitioner note has been reviewed, I agree with a documented findings and plan of care. Patient was seen and examined. Past Medical History Past Medical History: Hyperlipidemia, Hypertension Additional Past Medical History / Comment(s): sarcoidosis History of Any Multi-Drug Resistant Organisms: None Reported Past Surgical History: Appendectomy, Orthopedic Surgery Additional Past Surgical History / Comment(s): chest tubes place Past Anesthesia/Blood Transfusion Reactions: No Reported Reaction Past Psychological History: No Psychological Hx Reported Smoking Status: Never smoker Past Alcohol Use History: Occasional Past Drug Use History: None Reported - Past Family History Father Family Medical History: CVA/TIA, Myocardial Infarction ([place]) Additional Family Medical History / Comment(s): triple vessel CABG Mother Family Medical History: Diabetes Mellitus Additional Family Medical History / Comment(s): brain aneurysm Medications and Allergies Home Medications Medication Instructions Recorded Confirmed Type Aspirin EC [Ecotrin Low Dose] 81 mg PO DAILY 10/11/18 09/23/19 History Atorvastatin [Lipitor] 20 mg PO DAILY 10/11/18 09/23/19 History Hydrochlorothiazide [Hydrodiuril] 25 mg PO DAILY 10/11/18 09/23/19 History Lisinopril [Zestril] 10 mg PO DAILY 10/11/18 09/23/19 History Allergies Allergy/AdvReac Type Severity Reaction Status Date / Time No Known Allergies Allergy Verified 09/23/19 16:54 Physical Exam Vitals: Vital Signs Temp Pulse Pulse Resp BP BP Pulse Ox 09/24/19 08:00 98.1 F 54 L 18 118/73 98 09/24/19 03:55 98.1 F 59 L 18 107/59 93 L 09/23/19 22:43 98 F 62 18 101/53 96 09/23/19 17:43 97.9 F 60 18 155/88 96 09/23/19 16:53 98.3 F 64 16 131/81 96 09/23/19 15:36 69 18 128/78 98 09/23/19 14:49 68 18 140/100 98 09/23/19 13:43 98.0 F 72 20 150/91 99 Intake and Output 09/23/19 09/24/19 09/24/19 22:59 06:59 14:59 Intake Total 400 Balance 400 Intake: Oral 400 Other: # Voids 2 1 Weight 89.358 kg Results 09/23/19 13:55 09/23/19 13:55 Cardiac Enzymes 09/23/19 09/23/19 09/23/19 Range/Units 13:55 13:55 19:30 AST 34 (17-59) U/L Troponin I <0.012 <0.012 (0.000-0.034) ng/mL 09/24/19 Range/Units 01:45 AST (17-59) U/L Troponin I <0.012 (0.000-0.034) ng/mL Coagulation 09/23/19 Range/Units 13:55 PT 9.6 (9.0-12.0) sec APTT 23.8 (22.0-30.0) sec Lipids 09/23/19 Range/Units 13:55 Triglycerides 199 H (<150) mg/dL Cholesterol 196 (<200) mg/dL HDL Cholesterol 63 H (40-60) mg/dL CBC 09/23/19 Range/Units 13:55 WBC 5.1 (3.8-10.6) k/uL RBC 4.36 (4.30-5.90) m/uL Hgb 14.9 (13.0-17.5) gm/dL Hct 41.9 (39.0-53.0) % Plt Count 214 (150-450) k/uL Comprehensive Metabolic Panel 09/23/19 Range/Units 13:55 Sodium 139 (137-145) mmol/L Potassium 4.2 (3.5-5.1) mmol/L Chloride 102 (98-107) mmol/L Carbon Dioxide 29 (22-30) mmol/L BUN 18 (9-20) mg/dL Creatinine 1.16 (0.66-1.25) mg/dL Glucose 97 (74-99) mg/dL Calcium 9.4 (8.4-10.2) mg/dL AST 34 (17-59) U/L ALT 28 (4-49) U/L Alkaline Phosphatase 47 (38-126) U/L Total Protein 7.4 (6.3-8.2) g/dL Albumin 4.6 (3.5-5.0) g/dL Current Medications Generic Name Dose Route Start Last Admin Trade Name Freq PRN Reason Stop Dose Admin Aspirin 81 mg 09/24/19 09:00 Aspirin PO DAILY [facility] Atorvastatin Calcium 20 mg 09/24/19 09:00 Lipitor PO DAILY [facility] Hydrochlorothiazide 25 mg 09/24/19 09:00 Hydrodiuril PO DAILY [facility] Lisinopril 10 mg 09/24/19 09:00 Zestril PO DAILY [facility] Nitroglycerin 0.4 mg 09/23/19 16:07 Nitrostat SUBLINGUAL Q5M PRN Chest Pain Sodium Chloride 10 ml 09/23/19 21:00 09/23/19 20:07 Saline Flush IV 10 ml BID EROS Administration Intake and Output 09/23/19 09/24/19 09/24/19 22:59 06:59 14:59 Intake Total 400 Balance 400 Intake: Oral 400 Other: # Voids 2 1 Weight 89.358 kg 09/23/19 13:55 09/23/19 13:55
--- NOTE | 2019-09-24 13:15 | EST ---
EXERCISE STRESS DATE OF SERVICE: 09/24/2019 AGE: 54 SEX: Male HT: 70" WT: 197 pounds PROTOCOL: Aneudy STAGE: IV DURATION OF EXERCISE: 10 minutes HEART RATE REST: 64 BLOOD PRESSURE REST: 133/82 MAXIMUM HEART RATE ACHIEVED: 143 MAXIMUM BLOOD PRESSURE: 208/83 85% MPHR: 139 100% MPHR: 164 METS: 11.7 INDICATIONS: Chest pain. CLINICAL INFORMATION: Baseline EKG revealed normal sinus rhythm without significant ST-T changes. Patient walked for 10 minutes on standard Aneudy protocol. Achieved a maximal heart rate of 143 beats per minute which is more than 85% of predicted maximal heart rate, developed fatigue and shortness of breath but did not have any angina or arrhythmia. EKG did not reveal any ST-segment changes to indicate ischemia. By EKG criteria, this is a negative stress test with excellent exercise capacity. NATALYA / NON: [id number] /
--- NOTE | 2019-09-24 14:27 | P.DS ---
Providers Date of admission: 09/23/19 16:07 Expected date of discharge: 09/24/19 Attending physician: Jonathan Carson MD Consults: 09/23/19 16:07 Consult Physician Urgent Consulting Provider: Shabbir Lin Consult Reason/Comments: cp Do you want consulting provider notified?: Yes 09/23/19 18:23 Consult Physician Routine Consulting Provider: Ren Grubbs Consult Reason/Comments: Sarcoidosis Do you want consulting provider notified?: Yes Primary care physician: Sree Kohler Hospital Course: Discharge Diagnosis: Non cardiac chest pain HLD HTN Sarcodiosis HLD Hospital Course: Patient is a 54-year-old male with a history of high blood pressure and dyslipidemia who presented to the hospital for complaints of chest pain. On arrival to the ER his vital signs within normal limits. Laboratory analysis was unremarkable. Troponin was negative. EKG was nonischemic. Cholesterol profile showed slightly elevated triglycerides at 199. He was admitted as chest pain observation. His chest x-ray was negative. Remainder of his troponins were negative. He was seen by cardiology and underwent an exercise stress test which showed no signs of acute ischemia. He was also seen by pulmonary as he has a history of sarcoidosis in the recommended outpatient follow-up. We discussed with the patient that his chest pain could be coming from noncardiac causes such as peptic ulcer disease, gallbladder dysfunction, or chest wall pain. I've asked that he follow-up with his PCP Dr. Kohler for nonacute reasons of chest pain. He will also follow-up with Dr. Grubbs on 10/[address] Hutchinson on 10/08. He did have some dizziness this hospital stay and orthostatic vital signs were negative, Patient seen and examined at bedside. No additional signs of chest pain. Had some chest pain until started a stress test but this result was able to completed without difficulty. Vital signs reviewed and stable. General: non toxic, no distress, appears at stated age Derm: warm, dry Head: atraumatic, normocephalic, symmetric Eyes: EOMI, no lid lag, anicteric sclera Mouth: no lip lesion, mucus membranes moist Cardiovascular: S1S2 reg, no murmur, positive posterior tibial pulse bilateral, Lungs: CTA bilateral, no rhonchi, no rales , no accessory muscle use Abdominal: soft, nontender to palpation, no guarding, no appreciable organomegaly Ext: no gross muscle atrophy, no edema, no contractures Neuro: CN II-XI grossly intact, no focal neuro deficits Psych: Alert, oriented, appropriate affect A total of 35 minutes of time were spent preparing this complex discharge summary . Patient Condition at Discharge: Stable Plan - Discharge Summary New Discharge Prescriptions: No Action Atorvastatin [Lipitor] 20 mg PO DAILY Aspirin EC [Ecotrin Low Dose] 81 mg PO DAILY Lisinopril [Zestril] 10 mg PO DAILY Hydrochlorothiazide [Hydrodiuril] 25 mg PO DAILY Discharge Medication List Aspirin EC [Ecotrin Low Dose] 81 mg PO DAILY 10/11/18 [History] Atorvastatin [Lipitor] 20 mg PO DAILY 10/11/18 [History] Hydrochlorothiazide [Hydrodiuril] 25 mg PO DAILY 10/11/18 [History] Lisinopril [Zestril] 10 mg PO DAILY 10/11/18 [History] Follow up Appointment(s)/Referral(s): Sree Kohler MD [Primary Care Provider] - 1-2 days Ren Grubbs DO [Doctor of Osteopathic Medicine] - 10/09/19 10:00 am (please arrive 15 mins before appointment. Patient is to see Dr. Grubbs post hospital follow up.) Diana Hutchinson MD [STAFF PHYSICIAN] - 10/08/19 2:30 pm Patient Instructions/Handouts: Chest Pain (DC), Dizziness (ED)
--- NOTE | 2019-09-24 20:19 | CONS ---
CONSULTATION PULMONARY/CRITICAL CARE CONSULTATION: DATE OF SERVICE: September 24, 2019 HISTORY OF PRESENT ILLNESS: This is a 54-year-old male who apparently presented to the emergency room with complaints of chest pain. The patient was sent in by his primary doctor, Dr. Sree Kohler with pain. The patient also complained of lightheadedness over the last couple of days prior to admission. The pain was described as a burning in his chest. He graded it being a 3 out of 10. There was no radiation. He apparently denied any shortness of breath. No nausea, vomiting, diarrhea, or any genitourinary complaints. There was no trauma. He was not coughing and producing any phlegm. Anyway, he has been evaluated here. I was consulted because many years ago I diagnosed shoulder with sarcoidosis. We did a bronchoscopy with biopsy on him. He was subsequently treated with medication and went into remission. He feels like the symptoms that he is having may in fact relate to a recurrence of the sarcoidosis. Ever since he has been in remission, he has been doing well. He states that the symptoms that he is having currently are very similar to the initial systems and brought him to me many years ago. HOME MEDICATIONS: Include aspirin, Lipitor, hydrochlorothiazide and lisinopril. ALLERGIES: Denied. MEDICAL HISTORY: Hyperlipidemia, hypertension, and sarcoidosis. SURGICAL HISTORY: Includes appendectomy, chest tube placement, bronchoscopy and transbronchial biopsy. He has also had some orthopedic procedures as well. SOCIAL HISTORY: Negative for tobacco use. He does drink occasionally. Denies any illicit drug use. FAMILY HISTORY: Positive for mother with brain aneurysm and a father with a triple-vessel bypass grafting. REVIEW OF SYSTEMS: CONSTITUTIONAL negative. NEUROLOGIC negative. HEENT negative. CARDIOVASCULAR chest pain. PULMONARY negative. GI negative. negative. RHEUMATOLOGIC negative. IMMUNOLOGIC negative. ENDOCRINOLOGIC negative. DERMATOLOGIC negative. PHYSICAL EXAMINATION: VITAL SIGNS: Current vital signs are reviewed. Temperature is 98.1, heart rate 54, respiratory rate 18, blood pressure 118/73, mean 88, room air saturation 98%. GENERAL: Appears in no acute distress. HEENT examination is grossly unremarkable. Mucous membranes are moist. No oral lesions. NECK: Supple. Full range of motion. No adenopathy or thyromegaly. Neck veins are flat. CARDIOVASCULAR: Examination reveals regular rhythm and rate. S1, S2 normal. No S3, S4, or murmur. LUNGS: Reveal clear breath sounds equal. No wheezes, rhonchi, or crackles. ABDOMEN: Soft. Bowel sounds are heard. No masses or tenderness. EXTREMITIES are intact without cyanosis, clubbing, or edema. SKIN: Without rash. NEUROLOGIC: Examination is nonfocal. LAB DATA: Reviewed. White count 5.1, hemoglobin 14.9, hematocrit 41.9, platelet count 214,000. PT/INR, PTT normal. Sodium 139, potassium 4.2, chloride 102, CO2 29. Anion gap is 8. BUN and creatinine were 18 and 1.16. The patient's calcium is 9.4, glucose normal. Troponins were negative x3. C-reactive protein less than 5. HDL cholesterol 63. Albumin 4.6. A chest x-ray shows some faint reticular opacities in the right upper lung and right infrahilar region. ASSESSMENT: 1. Chest pain, appears to be noncardiac in nature. 2. Previous history of sarcoidosis diagnosed with transbronchial biopsy, currently in remission. 3. History of hypertension. 4. History of hyperlipidemia. PLAN: I talked to the patient about evaluation. We feel the best way to evaluate him is outpatient evaluation. The patient will need a CT scan of the chest with contrast. He will need a full pulmonary function test. He will also need a 24 hour urine calcium, as well as a sedimentation rate, C-reactive protein, serum calcium, and angiotensin- converting enzyme level. Additional recommendations and suggestions are forthcoming. Also need a PFT in the office. He will set up an appointment to see me. MMODL / IJN: [id number] /
== END 2019-09-24 14:50 | disposition home or self-care (01) ==
LOC: EC 13:38 → 1SOBS 16:07
PROVIDERS: ADMIT Internal Medicine; ATTEND Internal Medicine
DX: R07.89 Other chest pain (principal); I10 Essential (primary) hypertension; E78.5 Hyperlipidemia, unspecified; D86.0 Sarcoidosis of lung; I51.7 Cardiomegaly; Z79.82 Long term (current) use of aspirin; Z79.899 Other long term (current) drug therapy; Z90.49 Acquired absence of other specified parts of digestive tract; Z82.49 Family history of ischemic heart disease and other diseases of the circulatory system
CPT/HCPCS: 93005 ×2; 99285; 36415; 93017; 80061; 80053; 85652; 82164; 83735; 84484 ×2; 85025; 85610; 85730; 86140; 71046; G0378 ×2

== ENCOUNTER 2020-08-10 16:22 | Observation (INO) | payer BC ==
[2020-08-10] MEDS ORDERED: ASPIRIN 81 MG PO STA (16:51)
[2020-08-10] MEDS ORDERED: NITROGLYCERIN OINT 1 INCH/GM PACKET TOPICAL STA (16:51)
--- NOTE | 2020-08-10 16:55 | ED ---
General Adult HPI - General Chief complaint: Chest Pain Stated complaint: Chest pain Time Seen by Provider: 08/10/20 16:25 Source: patient, RN notes reviewed, old records reviewed Mode of arrival: ambulatory Limitations: no limitations - History of Present Illness Initial comments: This a 55-year-old male with past medical history significant for hypertension and high cholesterol. Patient also states his family history positive for heart disease. Patient comes in today stating since last his been having chest pain that is been intermittent in nature's. Patient states anytime she exerts himself it does get worse he states at rest it does seem to improve. Patient states she's mild short of breath. Patient states the pain radiates to the left arm. Patient states he has no diaphoresis and no nausea. Patient denies any abdominal pain. Patient denies any recent fever chills or cough. Patient denies any headache patient denies lightheadedness or dizziness. Patient states currently he only has a little bit of left-sided chest pain. - Related Data Home Medications Medication Instructions Recorded Confirmed Aspirin EC [Ecotrin Low Dose] 81 mg PO DAILY 10/11/18 09/23/19 Atorvastatin [Lipitor] 20 mg PO DAILY 10/11/18 09/23/19 hydroCHLOROthiazide [Hydrodiuril] 25 mg PO DAILY 10/11/18 09/23/19 lisinopriL [Zestril] 10 mg PO DAILY 10/11/18 09/23/19 Allergies Allergy/AdvReac Type Severity Reaction Status Date / Time No Known Allergies Allergy Verified 08/10/20 16:26 Review of Systems ROS Statement: Those systems with pertinent positive or pertinent negative responses have been documented in the HPI. ROS Other: All systems not noted in ROS Statement are negative. Past Medical History Past Medical History: Hyperlipidemia, Hypertension Additional Past Medical History / Comment(s): sarcoidosis History of Any Multi-Drug Resistant Organisms: None Reported Past Surgical History: Appendectomy, Orthopedic Surgery Additional Past Surgical History / Comment(s): chest tubes place Past Anesthesia/Blood Transfusion Reactions: No Reported Reaction Past Psychological History: No Psychological Hx Reported Smoking Status: Never smoker Past Alcohol Use History: Occasional Past Drug Use History: None Reported - Past Family History Father Family Medical History: CVA/TIA, Myocardial Infarction ([place]) Additional Family Medical History / Comment(s): triple vessel CABG Mother Family Medical History: Diabetes Mellitus Additional Family Medical History / Comment(s): brain aneurysm General Exam - General Exam Comments Initial Comments: GENERAL: Patient is well-developed and well-nourished. Patient is nontoxic and well- hydrated and is in mild distress. ENT: Neck is soft and supple. No significant lymphadenopathy is noted. Oropharynx is clear. Moist mucous membranes. Neck has full range of motion without elici ting any pain. EYES: The sclera were anicteric and conjunctiva were pink and moist. Extraocular m ovements were intact and pupils were equal round and reactive to light. Eyelids were unremarkable. PULMONARY: Unlabored respirations. Good breath sounds bilaterally. No audible rales rhonchi or wheezing was noted. CARDIOVASCULAR: There is a regular rate and rhythm without any murmurs gallops or rubs. ABDOMEN: Soft and nontender with normal bowel sounds. SKIN: Skin is clear with no lesions or rashes and otherwise unremarkable. NEUROLOGIC: Patient is alert and oriented x3. Cranial nerves II through XII are grossly intact. Motor and sensory are also intact. Normal speech, volume and content. Symmetrical smile. MUSCULOSKELETAL: Normal extremities with adequate strength and full range of motion. No lower extremity swelling or edema. No calf tenderness. LYMPHATICS: No significant lymphadenopathy is noted PSYCHIATRIC: Normal psychiatric evaluation. Limitations: no limitations Course Vital Signs 08/10/20 08/10/20 16:23 17:20 Temperature 97.9 F Pulse Rate 83 77 Respiratory 18 16 Rate Blood Pressure 142/82 127/87 O2 Sat by Pulse 98 100 Oximetry Medical Decision Making - Medical Decision Making EKG shows sinus rhythm with occasional PVC at 76 bpm MN interval 158 QRSs 80 QT interval 380 QTC is 427. Patient's EKG shows no ST segment elevation no T-wave abnormalities. Patient's chest x-ray shows no acute abnormality. Patient stated after the Nitropaste was placed he no longer had any more chest pain. I started the patient heparin. I spoke with Dr. Vuong she agreed to admit the patient admitted the patient wrote admitting or significant for Nitropaste on the floor. - Lab Data Result diagrams: 08/10/20 16:53 08/10/20 16:53 Lab Results 08/10/20 08/10/20 08/10/20 Range/Units 16:53 16:53 16:53 WBC 7.0 (3.8-10.6) k/uL RBC 4.77 (4.30-5.90) m/uL Hgb 16.2 (13.0-17.5) gm/dL Hct 44.1 (39.0-53.0) % MCV 92.5 (80.0-100.0) fL MCH 34.1 (25.0-35.0) pg MCHC 36.8 (31.0-37.0) g/dL RDW 12.9 (11.5-15.5) % Plt Count 227 (150-450) k/uL MPV 7.2 Neutrophils % 77 % Lymphocytes % 12 % Monocytes % 7 % Eosinophils % 2 % Basophils % 1 % Neutrophils # 5.4 (1.3-7.7) k/uL Lymphocytes # 0.8 L (1.0-4.8) k/uL Monocytes # 0.5 (0-1.0) k/uL Eosinophils # 0.1 (0-0.7) k/uL Basophils # 0.0 (0-0.2) k/uL PT 10.0 (9.0-12.0) sec INR 1.0 (<1.2) APTT 23.6 (22.0-30.0) sec D-Dimer (<0.60) mg/L FEU Sodium 136 L (137-145) mmol/L Potassium 4.0 (3.5-5.1) mmol/L Chloride 104 (98-107) mmol/L Carbon Dioxide 27 (22-30) mmol/L Anion Gap 5 mmol/L BUN 23 H (9-20) mg/dL Creatinine 1.13 (0.66-1.25) mg/dL Est GFR (CKD-EPI)AfAm 83 (>60 ml/min/1.73 sqM) Est GFR (CKD-EPI)NonAf 72 (>60 ml/min/1.73 sqM) Glucose 103 H (74-99) mg/dL Calcium 9.4 (8.4-10.2) mg/dL Magnesium 1.5 L (1.6-2.3) mg/dL Total Bilirubin 0.7 (0.2-1.3) mg/dL AST 28 (17-59) U/L ALT 29 (4-49) U/L Alkaline Phosphatase 51 (38-126) U/L Troponin I (0.000-0.034) ng/mL Total Protein 7.3 (6.3-8.2) g/dL Albumin 4.4 (3.5-5.0) g/dL 08/10/20 08/10/20 Range/Units 16:53 16:53 WBC (3.8-10.6) k/uL RBC (4.30-5.90) m/uL Hgb (13.0-17.5) gm/dL Hct (39.0-53.0) % MCV (80.0-100.0) fL MCH (25.0-35.0) pg MCHC (31.0-37.0) g/dL RDW (11.5-15.5) % Plt Count (150-450) k/uL MPV Neutrophils % % Lymphocytes % % Monocytes % % Eosinophils % % Basophils % % Neutrophils # (1.3-7.7) k/uL Lymphocytes # (1.0-4.8) k/uL Monocytes # (0-1.0) k/uL Eosinophils # (0-0.7) k/uL Basophils # (0-0.2) k/uL PT (9.0-12.0) sec INR (<1.2) APTT (22.0-30.0) sec D-Dimer 0.22 (<0.60) mg/L FEU Sodium (137-145) mmol/L Potassium (3.5-5.1) mmol/L Chloride (98-107) mmol/L Carbon Dioxide (22-30) mmol/L Anion Gap mmol/L BUN (9-20) mg/dL Creatinine (0.66-1.25) mg/dL Est GFR (CKD-EPI)AfAm (>60 ml/min/1.73 sqM) Est GFR (CKD-EPI)NonAf (>60 ml/min/1.73 sqM) Glucose (74-99) mg/dL Calcium (8.4-10.2) mg/dL Magnesium (1.6-2.3) mg/dL Total Bilirubin (0.2-1.3) mg/dL AST (17-59) U/L ALT (4-49) U/L Alkaline Phosphatase (38-126) U/L Troponin I <0.012 (0.000-0.034) ng/mL Total Protein (6.3-8.2) g/dL Albumin (3.5-5.0) g/dL Critical Care Time Critical Care Time: Yes Total Critical Care Time: 35 Disposition Clinical Impression: Unstable angina pectoris Disposition: ADMITTED IP TO THIS HOSP Referrals: Sree Kohler MD [Primary Care Provider] - 1-2 days Time of Disposition: 18:28
[2020-08-10 17:04] LABS: Basophils % (A) 1 %; Eosinophils # (A) 0.1 k/uL (0-0.7); Eosinophils % (A) 2 %; HCT 44.1 % (39.0-53.0); HGB 16.2 gm/dL (13.0-17.5); Lymphocytes # (A) 0.8 k/uL (1.0-4.8); Lymphocytes % (A) 12 %; MCH 34.1 pg (25.0-35.0); MCHC 36.8 g/dL (31.0-37.0); MCV 92.5 fL (80.0-100.0); Mean Platelet Volume 7.2; Monocytes # (A) 0.5 k/uL (0-1.0); Monocytes % (A) 7 %; Neutrophils # (A) 5.4 k/uL (1.3-7.7); Neutrophils % (A) 77 %; Platelet Count 227 k/uL (150-450); RBC 4.77 m/uL (4.30-5.90); RDW 12.9 % (11.5-15.5)
[2020-08-10 17:14] LABS: Albumin 4.4 g/dL (3.5-5.0); Calcium 9.4 mg/dL (8.4-10.2); Magnesium 1.5 mg/dL (1.6-2.3); Total Bilirubin 0.7 mg/dL (0.2-1.3); Total Protein 7.3 g/dL (6.3-8.2)
--- NOTE | 2020-08-10 17:15 | XR ---
EXAMINATION TYPE: XR chest 2V DATE OF EXAM: 08/10/2020 COMPARISON: 09/23/2019 HISTORY: Chest pain TECHNIQUE: FINDINGS: There is no heart failure. There is slight coarsening of interstitial markings in the right lung compared to the left. There is slight blunting of the right costophrenic angle. There are no hi lar masses. Heart size is normal. There are chest leads. Bony thorax is intact. IMPRESSION: Minimal increased interstitial density in the right lung with pleural reaction unchanged compared to old exam and consistent with scarring. Normal heart. No definite acute lung disease.
[2020-08-10 17:28] LABS: Partial Thromboplastin Time 23.6 sec (22.0-30.0)
[2020-08-10] MEDS ORDERED: NITROGLYCERIN SL TABS 0.4 MG TAB SUBLINGUAL PRN (18:29)
--- NOTE | 2020-08-10 20:52 | P.HPIM ---
History of Present Illness H&P Date: 08/10/20 Chief Complaint: chest pain 55 year old male with history of hypertension , hyperlipidemia , sarcoidosis patient coming in with one week history of exertional chest pain, he reports pain with mild to moderate exertion, he noticed since he has been off work, his job is not physical but does involve standing up for long hours. on his first two days off, he was exercising using stair master machine, with no limitations, he does recognize that he is going through some life stressors due to family illness. today after waking up feeling fine, he did some chores around the house, and took a shower, after which he had another attack of chest pain , pressure like retrosternal radiating to the left arm , 8/10 in severity , no associated nausea or vomiting, no sweating or palpitations. but he does report some associated SOB and dizziness. he was worried and decided to come for evaluation . he does report strong family history of heart disease. he denies any smoking, but does binge drinking over weekends. in the ED, his symptoms improved after nitropase, EKG non ischemic, and blood work unremarkable he did have COVID about 1.5 months ago, but his symptoms has completely resolved since then. he also reports history of sarcoidosis patient did have cardiac workup in the past, 2 years ago he had a heart cath , no stents needed. and earlier this year he had cardiac evaluation with a stress test that was negative for ischemic changes. Review of Systems Pertinent positives as noted in HPI. All other systems were reviewed and are negative Past Medical History Past Medical History: Hyperlipidemia, Hypertension Additional Past Medical History / Comment(s): sarcoidosis History of Any Multi-Drug Resistant Organisms: None Reported Past Surgical History: Appendectomy, Orthopedic Surgery Additional Past Surgical History / Comment(s): chest tubes place Past Anesthesia/Blood Transfusion Reactions: No Reported Reaction Past Psychological History: No Psychological Hx Reported Smoking Status: Never smoker Past Alcohol Use History: Occasional Past Drug Use History: None Reported - Past Family History Father Family Medical History: CVA/TIA, Myocardial Infarction ([place]) Additional Family Medical History / Comment(s): triple vessel CABG Mother Family Medical History: Diabetes Mellitus Additional Family Medical History / Comment(s): brain aneurysm Medications and Allergies Home Medications Medication Instructions Recorded Confirmed Type Aspirin EC [Ecotrin Low Dose] 81 mg PO DAILY 10/11/18 08/10/20 History Atorvastatin [Lipitor] 20 mg PO DAILY 10/11/18 08/10/20 History hydroCHLOROthiazide [Hydrodiuril] 25 mg PO DAILY 10/11/18 08/10/20 History lisinopriL [Zestril] 10 mg PO DAILY 10/11/18 08/10/20 History Allergies Allergy/AdvReac Type Severity Reaction Status Date / Time No Known Allergies Allergy Verified 08/10/20 18:39 Physical Exam Vitals: Vital Signs Temp Pulse Resp BP Pulse Ox 08/10/20 18:30 71 18 111/75 96 08/10/20 18:00 114/69 08/10/20 17:20 77 16 127/87 100 08/10/20 16:23 97.9 F 83 18 142/82 98 Intake and Output 08/10/20 08/10/20 08/10/20 06:59 14:59 22:59 Other: Weight 82.554 kg Constitutional: No acute distress, conversant, pleasant Eyes: Anicteric sclerae, moist conjunctiva, Pupils equal round reactive to light ENMT: NC/AT Oropharynx clear, no erythema, or exudates Neck: Supple, FROM, no masses, or JVD No carotid bruits No thyromegaly Lungs: Clear to auscultation Clear to percussion Normal respiratory effort, no accessory muscle use Cardiovascular: Heart regular in rate and rhythm, No murmurs, gallops, or rubs No peripheral edema Abdominal: Soft Nontender, no guarding, rebound or rigidity Abdomen moving with respiration Normoactive bowel sounds No hepatomegaly, No splenomegaly No palpable mass No abdominal wall hernia noted Skin: Normal temperature, tone, texture, turgor No induration No subcutaneous nodules No rash, lesions No ulcers Extremities: No digital cyanosis No clubbing Pedal pulses intact and symmetrical Radial pulses intact and symmetrical No calf tenderness Psychiatric: Alert and oriented to person, place and time Appropriate affect fair judgement Neuro Muscles Strength 5/5 in all 4 extremities Sensation to light touch grossly present throughout Cranial nerves II-XII grossly intact No focal sensory deficits Lymphatics: no palpable cervical or supraclavicular , or inguinal lymph nodes Results CBC & Chem 7: 08/10/20 16:53 08/10/20 16:53 Labs: Abnormal Lab Results - Last 24 Hours (Table) 08/10/20 08/10/20 Range/Units 16:53 16:53 Lymphocytes # 0.8 L (1.0-4.8) k/uL Sodium 136 L (137-145) mmol/L BUN 23 H (9-20) mg/dL Glucose 103 H (74-99) mg/dL Magnesium 1.5 L (1.6-2.3) mg/dL Assessment and Plan Assessment: atypical chest pain rule out unstable angina cardio consult monitor vital signs , manager monitoring trend trops nitro PRN hypomagnesemia replace IV hypertension resume home meds hyperlipidemia , resume home meds sarcoidosis , stable Preformed a thorough record review from recent hospitalization negative cardiac workup earlier on september 2019 CODE STATUS:full code DVT prophylaxis: heparin Discussed with: Patient, ER Anticipated length of stay < than [address]: home A total of 65 minutes was spent on the care of this complex patient more than 50% of the time was spent in counseling and care coordination.
[2020-08-10] MEDS: MAGNESIUM SULFATE-D5W PMX 1 GM in DEXTROSE/WATER 1 100ML.BAG IVPB SCH ×2 (22:07→23:54)
[2020-08-10] MEDS: NITROGLYCERIN OINT 1 INCH/GM PACKET TOPICAL SCH (23:58)
[2020-08-10] MEDS: HEPARIN SODIUM,PORCINE 5,000 UNIT/ML 1 ML VIAL SQ SCH (23:58)
[2020-08-11] MEDS: NITROGLYCERIN OINT 1 INCH/GM PACKET TOPICAL SCH (06:28)
[2020-08-11 08:24] LABS: Magnesium 1.9 mg/dL (1.6-2.3)
[2020-08-11 08:49] VITALS: RESP 18; TEMP 98
[2020-08-11] MEDS ORDERED: ATORVASTATIN 20 MG TAB PO SCH (09:00)
[2020-08-11] MEDS ORDERED: ASPIRIN 81 MG PO SCH (09:00)
[2020-08-11] MEDS ORDERED: ASPIRIN 325 MG TAB PO SCH (09:00)
[2020-08-11] MEDS ORDERED: lisinopriL 10 MG TAB PO SCH (09:00)
[2020-08-11] MEDS ORDERED: hydroCHLOROthiazide 25 MG TAB PO SCH (09:00)
[2020-08-11] MEDS: HEPARIN SODIUM,PORCINE 5,000 UNIT/ML 1 ML VIAL SQ SCH (09:40)
--- NOTE | 2020-08-11 10:33 | P.CRDCN ---
History of Present Illness Consult date: 08/11/20 History of present illness: CHIEF COMPLAINT: Chest pain HISTORY OF PRESENT ILLNESS: This is a 55-year-old male with a past medical history significant for hypertension, hypercholesterol, and sarcoidosis. Patient also reports having cold that about a month and a half ago. 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 We have been asked to see the patient in consultation for chest pain. Patient examined this morning the bedside. Patient states he has been off work since August 03. He states he has started to exercise again and has been on his treadmill and lifting some weights. He reports he began having chest pain last . He reports it as a pressure-like sensation in the left side of the chest that goes into his left shoulder and arm. He also reports feeling lightheaded. He denies shortness of breath. Denies nausea or vomiting. He states he usually takes Pepcid when he has these symptoms and I will relieve it but this time it did not. He states the pain is worse with movement. He does have tenderness with palpation to the left chest wall. The patient was evaluated in September 2019 for chest pain. He underwent a stress test at that time which was negative for ischemia. DIAGNOSTICS: EKG reveals sinus rhythm with no signs of acute ischemia Chest xray minimal increased interstitial density in the right lung with pleural reaction unchanged compared to old exam. Laboratory data: WBC 7.0. Hemoglobin 16.2. Platelet count 227. D-dimer 0.22. Sodium 136. Potassium 4.0. B UN 23. Creatinine 1.13. Magnesium 1.9. Troponin negative 3 Current home cardiac medications include lisinopril 10 mg daily, hydrochlorothiazide 25 mg daily, Lipitor 20mg daily, and aspirin 81 mg daily REVIEW OF SYSTEMS: At the time of my exam: CONSTITUTIONAL: Denies fever or chills. HEENT: Denies blurred vision, vision changes, or eye pain. Denies hemoptysis CARDIOVASCULAR: Denies chest pain, orthopnea, PND or palpitations RESPIRATORY: No shortness of breath. GASTROINTESTINAL: Denies abdominal pain. Denies nausea or vomiting. HEMATOLOGIC: Denies bleeding disorders. GENITOURINARY: Denies any blood in urine. SKIN: Denies pruitis. Denies rash. PHYSICAL EXAM: VITAL SIGNS: Reviewed. GENERAL: Well-developed in no acute distress. HEENT: Head is normocephalic. Pupils are equal, round. Sclerae anicteric. Mucous membranes of the mouth are moist. Neck supple. No JVD or thyromegaly LUNGS: Respirations even and unlabored. Lungs essentially clear to auscultation bilaterally. HEART: Regular rate and rhythm. S1 and S2 heard. Left chest wall tenderness with palpation. Patient also has pain with palpation of left bicep muscle. ABDOMEN: Soft. Nondistended. Nontender. EXTREMITIES: Normal range of motion. No clubbing or cyanosis. Peripheral pulses intact. No lower extremity edema NEUROLOGIC: Awake and alert. Oriented x 3. ASSESSMENT: Chest pain, troponins negative 3, musculoskeletal in etiology Hypertension Hyperlipidemia History of sarcoidosis History of Covid 19 PLAN: An acute coronary event has been ruled out Discontinue Nitropaste Decrease aspirin to 81 mg Obtain 2-D echo to assess cardiac structure and function Patient may be discharged home from a cardiac standpoint. He may follow up with Dr. Duncan on an outpatient basis. Nurse practitioner note has been reviewed by physician. Signing provider agrees with the documented findings, assessment, and plan of care. Past Medical History Past Medical History: Hyperlipidemia, Hypertension Additional Past Medical History / Comment(s): sarcoidosis History of Any Multi-Drug Resistant Organisms: None Reported Past Surgical History: Appendectomy, Orthopedic Surgery Additional Past Surgical History / Comment(s): chest tubes place Past Anesthesia/Blood Transfusion Reactions: No Reported Reaction Past Psychological History: No Psychological Hx Reported Smoking Status: Never smoker Past Alcohol Use History: Occasional Past Drug Use History: None Reported - Past Family History Father Family Medical History: CVA/TIA, Myocardial Infarction ([place]) Additional Family Medical History / Comment(s): triple vessel CABG Mother Family Medical History: Diabetes Mellitus Additional Family Medical History / Comment(s): brain aneurysm Medications and Allergies Home Medications Medication Instructions Recorded Confirmed Type Aspirin EC [Ecotrin Low Dose] 81 mg PO DAILY 10/11/18 08/10/20 History Atorvastatin [Lipitor] 20 mg PO DAILY 10/11/18 08/10/20 History hydroCHLOROthiazide [Hydrodiuril] 25 mg PO DAILY 10/11/18 08/10/20 History lisinopriL [Zestril] 10 mg PO DAILY 10/11/18 08/10/20 History Allergies Allergy/AdvReac Type Severity Reaction Status Date / Time No Known Allergies Allergy Verified 08/10/20 18:39 Physical Exam Vitals: Vital Signs Temp Pulse Pulse Resp BP BP Pulse Ox 08/11/20 08:48 98.0 F 62 18 134/79 96 08/11/20 04:00 97.8 F 54 L 17 101/65 95 08/10/20 22:50 18 08/10/20 22:30 98.1 F 72 17 134/68 96 08/10/20 18:30 71 18 111/75 96 08/10/20 18:00 114/69 08/10/20 17:20 77 16 127/87 100 08/10/20 16:23 97.9 F 83 18 142/82 98 Intake and Output 08/10/20 08/11/20 08/11/20 22:59 06:59 14:59 Other: Voiding Method Toilet Weight 82.554 kg Results 08/10/20 16:53 08/10/20 16:53 Cardiac Enzymes 08/10/20 08/10/20 08/10/20 Range/Units 16:53 16:53 19:38 AST 28 (17-59) U/L Troponin I <0.012 <0.012 (0.000-0.034) ng/mL 08/10/20 Range/Units 22:50 AST (17-59) U/L Troponin I <0.012 (0.000-0.034) ng/mL Coagulation 08/10/20 Range/Units 16:53 PT 10.0 (9.0-12.0) sec APTT 23.6 (22.0-30.0) sec Lipids 08/11/20 Range/Units 07:35 Triglycerides 114 (<150) mg/dL Cholesterol 154 (<200) mg/dL HDL Cholesterol 59 (40-60) mg/dL CBC 08/10/20 Range/Units 16:53 WBC 7.0 (3.8-10.6) k/uL RBC 4.77 (4.30-5.90) m/uL Hgb 16.2 (13.0-17.5) gm/dL Hct 44.1 (39.0-53.0) % Plt Count 227 (150-450) k/uL Comprehensive Metabolic Panel 08/10/20 Range/Units 16:53 Sodium 136 L (137-145) mmol/L Potassium 4.0 (3.5-5.1) mmol/L Chloride 104 (98-107) mmol/L Carbon Dioxide 27 (22-30) mmol/L BUN 23 H (9-20) mg/dL Creatinine 1.13 (0.66-1.25) mg/dL Glucose 103 H (74-99) mg/dL Calcium 9.4 (8.4-10.2) mg/dL AST 28 (17-59) U/L ALT 29 (4-49) U/L Alkaline Phosphatase 51 (38-126) U/L Total Protein 7.3 (6.3-8.2) g/dL Albumin 4.4 (3.5-5.0) g/dL Current Medications Generic Name Dose Route Start Last Admin Trade Name Freq PRN Reason Stop Dose Admin Aspirin 81 mg 08/11/20 09:00 Aspirin 81 Mg PO DAILY [facility] Atorvastatin Calcium 20 mg 08/11/20 09:00 Atorvastatin 20 Mg Tab PO DAILY [facility] Heparin Sodium (Porcine) 5,000 unit 08/11/20 00:00 08/10/20 23:58 Heparin Sodium,Porcine 5,000 Unit/Ml 1 Ml Vial SQ Not Given Q8HR [facility] Hydrochlorothiazide 25 mg 08/11/20 09:00 Hydrochlorothiazide 25 Mg Tab PO DAILY [facility] Lisinopril 10 mg 08/11/20 09:00 Lisinopril 10 Mg Tab PO DAILY [facility] Nitroglycerin 0.4 mg 08/10/20 18:29 Nitroglycerin Sl Tabs 0.4 Mg Tab SUBLINGUAL Q5M PRN Chest Pain Intake and Output 08/10/20 08/11/20 08/11/20 22:59 06:59 14:59 Other: Voiding Method Toilet Weight 82.554 kg 08/10/20 16:53 08/10/20 16:53
[2020-08-11 11:54] VITALS: BP 124/69; PULSE 60
--- NOTE | 2020-08-11 12:40 | P.DS ---
<Keyshawn Carrillo - Last Filed: 08/11/20 16:47> Providers Expected date of discharge: 08/11/20 Hospital Course: Discharge Diagnosis: Chest pain secondary to Bicep tendonitis Hypomagnesemia, resolved Hypertension Hyperlipidemia Sarcoidosis Hospital Course: The patient is a 55-year-old male with a past medical history of hypertension, hyperlipidemia and sarcoidosis. He presented to [facility] on 08/10/20 with a chief complaint of chest pain. Patient was seen and fully evaluated in the emergency department and admitted to observation unit where he received a cardiac workup including trending of troponins and echocardiogram. Patient had previous cardiac workup in September 2019 in which he reported feeling similar pain and discomfort. Patient had stress test at that time which was negative for ischemic changes. Patient also underwent a heart catheterization 2 years ago which was also negative for coronary artery disease with no need for stent placement reported. Patient denies having any family history of early onset cardiac disease or sudden cardiac and he denies any tobacco use, drug use, or alcohol use. Chest x-ray was completed revealing minimal increased interstitial density in the right lung with pleural reaction unchanged compared to old exam and consistent with scarring from sarcoidosis. Normal heart. No definite acute lung disease. EKG completed revealing normal sinus rhythm at 76 bpm with occasional PVCs. There was no T wave abnormalities or ST depression or elevation present. Troponin 3 was drawn already assaulted at less than 0.12. Lipid profile comple karina this morning revealing a total cholesterol of 154, triglycerides of 114, LDL is 72, an HDL of 59. Patient initially diagnosed with hypomagnesemia with magnesium of 1.5 resulting in replacement with repeat magnesium drawn this morning revealing normal findings at 1.9. Echocardiogram completed this morning and discussed findings with [facility] [employer] and was advised of normal echocardiogram findings and that pt was cleared by cardiology for discharge home. 08/11/20 Patient seen and examined at bedside. Patient had tenderness to left anterior chest upon palpation which increased with movement of left arm. Patient reports that he used to work out frequently and stopped working out altogether approximately 4 months ago. Patient states that last week just prior to the return of his chest pain he started lifting weights again. Patient reports he stopped lifting weights weights when he developed this chest pain. Patient reports he came to the hospital to be evaluated because he thought if he pulled a muscle it would have stopped hurting after he stopped lifting weights but this chest pain continued. Physical exam findings consistent with musculoskeletal pain likely from bicep tendinitis. Vital signs reviewed and stable throughout the entire stay in hospital. Physical exam findings: General: non toxic, no distress, appears at stated age Derm: warm, dry Head: atraumatic, normocephalic, symmetric Eyes: EOMI, no lid lag, anicteric sclera Mouth: no lip lesion, mucus membranes moist Cardiovascular: S1S2 reg, no murmur, positive posterior tibial pulse bilateral, Lungs: CTA bilateral with exception of being slightly diminished at lower bases worse on the right, no rhonchi, no rales, no wheezing, and no accessory muscle use. Respirations are even, regular, and unlabored on room air. Abdominal: soft, nontender to palpation, no guarding, no appreciable organomegaly Ext: no gross muscle atrophy, no edema, no contractures Neuro: CN II-XII grossly intact, no focal neuro deficits Psych: Alert, oriented, appropriate affect A total of 30 minutes of time were spent preparing this complex discharge summary . Patient Condition at Discharge: Good Plan - Discharge Summary Discharge Rx Participant: No New Discharge Prescriptions: New Ibuprofen [Motrin] 600 mg PO Q6HR PRN #60 tab PRN Reason: Pain Continue Atorvastatin [Lipitor] 20 mg PO DAILY Aspirin EC [Ecotrin Low Dose] 81 mg PO DAILY lisinopriL [Zestril] 10 mg PO DAILY hydroCHLOROthiazide [Hydrodiuril] 25 mg PO DAILY Discharge Medication List Aspirin EC [Ecotrin Low Dose] 81 mg PO DAILY 10/11/18 [History] Atorvastatin [Lipitor] 20 mg PO DAILY 10/11/18 [History] hydroCHLOROthiazide [Hydrodiuril] 25 mg PO DAILY 10/11/18 [History] lisinopriL [Zestril] 10 mg PO DAILY 10/11/18 [History] Ibuprofen [Motrin] 600 mg PO Q6HR PRN #60 tab 08/11/20 [Rx] Follow up Appointment(s)/Referral(s): Suleiman Duncan MD [STAFF PHYSICIAN] - 2 Weeks Sree Kohler MD [Primary Care Provider] - 1-2 days Activity/Diet/Wound Care/Special Instructions: Activity: As tolerated Diet: Heart healthy cardiac diet Special Instructions: Motrin 600 mg tablets take one tablet every 8 hours around the clock for first 72 hours and then every 6 hours as needed for pain/discomfort for musculoskeletal pain. Continue with daily aspirin 81 mg. Follow up with PCP in 2-3 days for follow up examination. Please return to hospital immediately if you experience any further chest pain or pressure, shortness of breath, or dizziness. Discharge Disposition: HOME SELF-CARE <Kalani Vuong - Last Filed: 08/11/20 19:44> Providers Date of admission: 08/10/20 18:29 Attending physician: Kalani Vuong DO Consults: 08/10/20 18:29 Consult Physician Urgent Consulting Provider: [facility] Consult Reason/Comments: Unstable angina Do you want consulting provider notified?: Yes Primary care physician: Sree Pipo [place] Hospital Course: Patient seen and examined independently. Patient was also seen by Keyshawn Carrillo NP and case was discussed. I am in agreement with discharge diagnosis, hospital course, and physical exam as written above and amended below. General: non toxic, no distress, appears at stated age Derm: warm, dry Head: atraumatic, normocephalic, symmetric Eyes: EOMI, no lid lag, anicteric sclera Mouth: no lip lesion, mucus membranes moist Cardiovascular: S1S2 reg, no murmur, positive posterior tibial pulse bilateral, Lungs: CTA bilateral, no rhonchi, no rales , no accessory muscle use Abdominal: soft, nontender to palpation, no guarding, no appreciable organomegaly Muscle skeletal: Pain to palpation of the biceps tendon with internal/external rotation of the arm Psych: Alert, oriented, appropriate affect Biceps tendonitis Hypomagnesemia, resolved Hypertension Hyperlipidemia Sarcoidosis
--- NOTE | 2020-08-11 18:44 | ECHOF ---
Referral Reason:chest pain MEASUREMENTS -------- HEIGHT: 177.8 cm WEIGHT: 82.6 kg BP: 134/79 IVSd: 1.3 cm (0.6 - 1.1) LVIDd: 3.8 cm (3.9 - 5.3) LVPWd: 1.2 cm (0.6 - 1.1) IVSs: 1.5 cm LVIDs: 2.8 cm LVPWs: 1.5 cm LA Diam: 3.3 cm (2.7 - 3.8) RVIDd: 3.5 cm (< 3.3) LAESV Index (A-L): 17.24 ml/m Ao Diam: 3.3 cm (2.0 - 3.7) AV Cusp: 2.3 cm (1.5 - 2.6) EPSS: 0.9 cm MV E [place]: 0.63 m/s MV DecT: 408 ms MV A [place]: 0.71 m/s MV E/A Ratio: 0.88 RAP: 5.00 mmHg RVSP: 34.52 mmHg MV EF SLOPE: 65.82 mm/s (70 - 150) MV EXCURSION: 17.01 mm (> 18.000) FINDINGS -------- Sinus rhythm. This was a technically good study. The left ventricular size is normal. There is mild concentric left ventricular hypertrophy. Overa ll left ventricular systolic function is normal with, an EF between 55 - 60 %. The right ventricle is mildly enlarged. Normal LA size by volume 22+/-6 ml/m2. The right atrium is normal in size. Interatrial and interventricular septum intact. The aortic valve is trileaflet and appears structurally normal. There is trace mitral regurgitation. Mild tricuspid regurgitation present. There is mild pulmonary hypertension. Trace/mild (physiologic) pulmonic regurgitation. The aortic root size is normal. Normal inferior vena cava with normal inspiratory collapse consistent with estimated right atrial pre ssure of 5 mmHg. There is no pericardial effusion. CONCLUSIONS -------- 1. The left ventricular size is normal. 2. There is mild concentric left ventricular hypertrophy. 3. Overall left ventricular systolic function is normal with, an EF between 55 - 60 %. 4. The right ventricle is mildly enlarged. 5. There is trace mitral regurgitation. 6. Mild tricuspid regurgitation present. 7. There is mild pulmonary hypertension. 8. Trace/mild (physiologic) pulmonic regurgitation. 9. There is no pericardial effusion. PATROL SUPERVISOR: Charley Palma RDCS
== END 2020-08-11 15:50 | disposition home or self-care (01) ==
LOC: EC 16:22 → 1SOBS 18:29
PROVIDERS: ADMIT Internal Medicine; ATTEND Internal Medicine
DX: M75.22 Bicipital tendinitis, left shoulder (principal); E83.42 Hypomagnesemia; I10 Essential (primary) hypertension; E78.5 Hyperlipidemia, unspecified; D86.0 Sarcoidosis of lung; E78.00 Pure hypercholesterolemia, unspecified; I49.3 Ventricular premature depolarization; Z79.82 Long term (current) use of aspirin; Z79.899 Other long term (current) drug therapy; Z90.49 Acquired absence of other specified parts of digestive tract; Z98.890 Other specified postprocedural states; Z86.19 Personal history of other infectious and parasitic diseases; Z82.49 Family history of ischemic heart disease and other diseases of the circulatory system; Z82.3 Family history of stroke; Z83.3 Family history of diabetes mellitus
CPT/HCPCS: 93005 ×2; 96366; 96372; 96365; 99291; 36415; 93306; 85379; 80061; 80053; 83735 ×2; 84484; 85025; 85610; 85730; 71046; G0378 ×2; J1644; J3475

== ENCOUNTER 2021-02-16 13:16 | Emergency (ER) | payer BC ==
[2021-02-16 13:27] VITALS: RESP 16; TEMP 98.2
[2021-02-16] MEDS ORDERED: SODIUM CHLORIDE 0.9% 1,000 ML IV STA (13:40)
[2021-02-16] MEDS ORDERED: PANTOPRAZOLE 40 MG/10 ML VIAL IVP STA (13:40)
[2021-02-16] MEDS ORDERED: ONDANSETRON 4 MG/2 ML VIAL IVP STA (13:40)
--- NOTE | 2021-02-16 13:58 | ED ---
Abdominal Pain HPI - General Chief Complaint: Abdominal Pain Stated Complaint: Abd pain Time Seen by Provider: 02/16/21 13:28 Source: patient Mode of arrival: ambulatory Limitations: no limitations - History of Present Illness Initial Comments: 55-year-old male presents to emergency department with a chief complaint of constipation. Patient reports she has been experiencing bouts of constipation for the past month. States he even attempted GoLYTELY with no significant improvement in his symptoms. States today he had a very small bowel movement af ter taking a laxative. He reports belching and upper abdominal discomfort/distention. He is able to pass gas. He denies any infectious or obstructive urinary symptoms. He denies any nausea or vomiting or diarrhea. Denies any chest or shortness of breath. Denies any hematuria, hematochezia or melena. Abdominal Surgical history of appendectomy. - Related Data Home Medications Medication Instructions Recorded Confirmed Aspirin EC [Ecotrin Low Dose] 81 mg PO DAILY 10/11/18 02/16/21 Atorvastatin [Lipitor] 20 mg PO DAILY 10/11/18 02/16/21 hydroCHLOROthiazide [Hydrodiuril] 25 mg PO DAILY 10/11/18 02/16/21 lisinopriL [Zestril] 10 mg PO DAILY 10/11/18 02/16/21 bisacodyL [Dulcolax] 10 mg PO DAILY PRN 02/16/21 02/16/21 Allergies Allergy/AdvReac Type Severity Reaction Status Date / Time No Known Allergies Allergy Verified 02/16/21 14:00 Review of Systems ROS Statement: Those systems with pertinent positive or pertinent negative responses have been documented in the HPI. ROS Other: All systems not noted in ROS Statement are negative. Past Medical History Past Medical History: Hyperlipidemia, Hypertension Additional Past Medical History / Comment(s): sarcoidosis History of Any Multi-Drug Resistant Organisms: None Reported Past Surgical History: Appendectomy, Orthopedic Surgery Additional Past Surgical History / Comment(s): chest tubes place Past Anesthesia/Blood Transfusion Reactions: No Reported Reaction Past Psychological History: No Psychological Hx Reported Smoking Status: Never smoker Past Alcohol Use History: Occasional Past Drug Use History: None Reported - Past Family History Father Family Medical History: CVA/TIA, Myocardial Infarction ([place]) Additional Family Medical History / Comment(s): triple vessel CABG Mother Family Medical History: Diabetes Mellitus Additional Family Medical History / Comment(s): brain aneurysm General Exam Limitations: no limitations General appearance: alert, in no apparent distress Head exam: Present: atraumatic, normocephalic, normal inspection Eye exam: Present: normal appearance, PERRL, EOMI Pupils: Present: normal accommodation ENT exam: Present: normal exam, normal oropharynx, mucous membranes moist Neck exam: Present: normal inspection, full ROM. Absent: tenderness, lymphadenopathy Respiratory exam: Present: normal lung sounds bilaterally. Absent: respiratory distress Cardiovascular Exam: Present: regular rate, normal rhythm, normal heart sounds. Absent: systolic murmur GI/Abdominal exam: Present: soft, tenderness (Diffuse, upper abdominal tenderness), normal bowel sounds. Absent: distended, guarding, rebound, rigid Extremities exam: Present: normal inspection, full ROM, normal capillary refill, other (Palpable DP and PT bilaterally). Absent: tenderness, pedal edema, joint swelling Back exam: Present: normal inspection, full ROM. Absent: tenderness, CVA tenderness (R), CVA tenderness (L) Neurological exam: Present: alert, oriented X3 Psychiatric exam: Present: normal affect, normal mood Skin exam: Present: warm, dry, intact, normal color Course Vital Signs 02/16/21 13:22 Temperature 98.2 F Pulse Rate 69 Respiratory 16 Rate Blood Pressure 133/83 O2 Sat by Pulse 96 Oximetry Medical Decision Making - Medical Decision Making 55-year-old male presents to emergency department with a chief complaint of constipation. On physical examination, mild upper abdominal tenderness. KUB is unremarkable. Laboratory work is also unremarkable. CT of abdomen and pelvis shows no signs of small bowel obstruction. I will give magnesium citrate advised him to drink only half the bottle and if he does not have a bowel movement in the following 6 hours, he can finish the rest of the Bottle. He was advised to follow with his primary care physician. Advised to follow clear liquid diet. Strict return parameters were thoroughly discussed the patient was exiting a vehicle. Case discussed with Dr. Newell - Lab Data Result diagrams: 02/16/21 13:50 02/16/21 13:50 Lab Results 02/16/21 02/16/21 Range/Units 13:50 13:50 WBC 5.2 (3.8-10.6) k/uL RBC 4.48 (4.30-5.90) m/uL Hgb 14.6 (13.0-17.5) gm/dL Hct 41.2 (39.0-53.0) % MCV 91.8 (80.0-100.0) fL MCH 32.6 (25.0-35.0) pg MCHC 35.5 (31.0-37.0) g/dL RDW 12.6 (11.5-15.5) % Plt Count 210 (150-450) k/uL MPV 7.6 Neutrophils % 75 % Lymphocytes % 14 % Monocytes % 7 % Eosinophils % 3 % Basophils % 0 % Neutrophils # 3.9 (1.3-7.7) k/uL Lymphocytes # 0.7 L (1.0-4.8) k/uL Monocytes # 0.4 (0-1.0) k/uL Eosinophils # 0.1 (0-0.7) k/uL Basophils # 0.0 (0-0.2) k/uL Sodium 137 (137-145) mmol/L Potassium 3.9 (3.5-5.1) mmol/L Chloride 102 (98-107) mmol/L Carbon Dioxide 29 (22-30) mmol/L Anion Gap 6 mmol/L BUN 18 (9-20) mg/dL Creatinine 0.92 (0.66-1.25) mg/dL Est GFR (CKD-EPI)AfAm >90 (>60 ml/min/1.73 sqM) Est GFR (CKD-EPI)NonAf >90 (>60 ml/min/1.73 sqM) Glucose 98 (74-99) mg/dL Calcium 9.6 (8.4-10.2) mg/dL Total Bilirubin 1.0 (0.2-1.3) mg/dL AST 36 (17-59) U/L ALT 34 (4-49) U/L Alkaline Phosphatase 56 (38-126) U/L Total Protein 6.8 (6.3-8.2) g/dL Albumin 4.4 (3.5-5.0) g/dL Lipase 147 (23-300) U/L Disposition Clinical Impression: Constipation, Abdominal pain Disposition: HOME SELF-CARE Condition: Stable Instructions (If sedation given, give patient instructions): Constipation (DC), High Fiber Diet (ED) Additional Instructions: Please return to the Emergency Department if symptoms worsen or any other concerns. Is patient prescribed a controlled substance at d/c from ED?: No Referrals: Sree Kohler MD [Primary Care Provider] - 1-2 days Time of Disposition: 15:36
[2021-02-16 14:03] LABS: Basophils % (A) 0 %; Eosinophils # (A) 0.1 k/uL (0-0.7); Eosinophils % (A) 3 %; HCT 41.2 % (39.0-53.0); HGB 14.6 gm/dL (13.0-17.5); Lymphocytes # (A) 0.7 k/uL (1.0-4.8); Lymphocytes % (A) 14 %; MCH 32.6 pg (25.0-35.0); MCHC 35.5 g/dL (31.0-37.0); MCV 91.8 fL (80.0-100.0); Mean Platelet Volume 7.6; Monocytes # (A) 0.4 k/uL (0-1.0); Monocytes % (A) 7 %; Neutrophils # (A) 3.9 k/uL (1.3-7.7); Neutrophils % (A) 75 %; Platelet Count 210 k/uL (150-450); RBC 4.48 m/uL (4.30-5.90); RDW 12.6 % (11.5-15.5); WBC 5.2 k/uL (3.8-10.6)
[2021-02-16 14:12] LABS: ALT 34 U/L (4-49); AST 36 U/L (17-59); African American GFR (CKD) >90 (>60 ml/min/1.73 sqM); Albumin 4.4 g/dL (3.5-5.0); Alkaline Phosphatase 56 U/L (38-126); Anion Gap 6 mmol/L; Blood Urea Nitrogen 18 mg/dL (9-20); Calcium 9.6 mg/dL (8.4-10.2); Carbon Dioxide 29 mmol/L (22-30); Chloride 102 mmol/L (98-107); Glucose 98 mg/dL (74-99); Lipase 147 U/L (23-300); Non-African American GFR(CKD) >90 (>60 ml/min/1.73 sqM); Potassium 3.9 mmol/L (3.5-5.1); Sodium 137 mmol/L (137-145); Total Protein 6.8 g/dL (6.3-8.2)
--- NOTE | 2021-02-16 14:23 | XR ---
EXAMINATION TYPE: XR KUB DATE OF EXAM: 02/16/2021 2:13 PM CLINICAL HISTORY: Complains of abdominal pain and constipation TECHNIQUE: 2 images, single view upright KUB image of the abdomen is obtained. COMPARISON: None. FINDINGS: Nonspecific, nonobstructive bowel gas pattern is. Stool and gas are scattered throughout th e colon and within the rectum. No free air on the upright view. No definite renal or ureteral calculi . Degenerative changes of the lower lumbar spine and hips. IMPRESSION: 1. Nonspecific, nonobstructive bowel gas pattern. No definite renal or ureteral calculi. No free air on upright view.
--- NOTE | 2021-02-16 15:13 | CT ---
EXAMINATION TYPE: CT abdomen pelvis w con DATE OF EXAM: 02/16/2021 COMPARISON: Radiograph same day and prior CT chest 10/10/2012 HISTORY: 55-year-old male epigastric and Abdominal pain. TECHNIQUE: Contiguous axial scanning of the abdomen and pelvis following administration of 100 ml Iso bela 300 IV contrast. Delayed images through the kidneys and coronal/sagittal reconstructions perform ed. CT DLP: 1067.2 mGycm Automated exposure control for dose reduction was used. FINDINGS: Heart normal size without pericardial effusion. Nodular interstitial density throughout the visualize d right lower lobe and some strandy atelectasis or scarring in the subpleural region of the left base . Calcified mediastinal lymph nodes compatible with prior granulomatous disease. Diffuse calcified granulomas in the liver and a 1.3 cm mid inferior liver lobe cyst. Portal venous sy stem is patent. No biliary ductal dilatation. Gallbladder, adrenal glands, right kidney, spleen with a tiny inferior hilar splenule, and pancreas w ithin normal limits. There is a 1.9 cm parapelvic cyst in the left kidney. Mildly enlarged 1.3 cm left lower para-aortic lymph node, axial image 40 and coronal image 50 [place] its fatty hilum. Probably reactive. No mesenteric lymphadenopathy. Tiny fatty umbilical hernia. No dilated small bowel, free fluid, free air. Mild stool burden. Minimal diverticular change along the distal sigmoid, axial image 60. No pericolon ic inflammatory change. There is some annular thickening and narrowing at the rectum, axial image 74 , likely due to focal peristalsis. Bladder urine distended. Prostate gland measures 4.4 cm wide. No abnormal fluid collection in the pel vis or pelvic lymphadenopathy. Bones: Mild degenerative change of the hips. Degenerative bony ankylosis of the SI joints. Baastrup's disease. Hypertrophic facet arthropathy mid to lower lumbar spine with moderate degenerative disc di sease throughout. IMPRESSION: 1. NODULAR INTERSTITIAL INFILTRATE RIGHT LOWER LOBE. SIMILAR CHANGES ARE PRESENT BACK TO THE PATIENT' S 10/10/2012 CT CHEST SUGGESTING A CHRONIC POSTINFLAMMATORY ETIOLOGY. THERE IS EVIDENCE OF PRIOR GRANUL OMATOUS DISEASE. 2. SOLITARY ENLARGED 1.3 CM LOWER LEFT PARA-AORTIC LYMPH NODE, LIKELY REACTIVE/POST INFLAMMATORY. 3-6 MONTH FOLLOW-UP CT TO ENSURE STABILITY/RESOLUTION. 3. MINIMAL DIVERTICULAR CHANGE AT THE DISTAL SIGMOID COLON. NO EVIDENCE FOR ACUTE DIVERTICULITIS. 4. SUSPECT FOCAL PERISTALSIS RATHER THAN ANNULAR NEOPLASM AT THE LEVEL OF THE RECTUM, AXIAL IMAGE 74. RECOMMEND DIRECT VISUALIZATION IF ROUTINE SCREENING COLONOSCOPY IS NOT BEING PERFORMED.
[2021-02-16] MEDS ORDERED: MAGNESIUM CITRATE 296 ML BOTTLE PO ONE (15:30)
[2021-02-16 15:40] LABS: Appearance,Urine Clear (Clear); Bilirubin,Urine Negative (Negative); Blood,Urine Negative (Negative); Color,Urine Light Yellow; Glucose,Urine (UA) Negative (Negative); Ketones,Urine Negative (Negative); Leukocyte Esterase,Urine Negative (Negative); Nitrite,Urine Negative (Negative); Protein,Urine Negative (Negative); Specific Gravity,Urine 1.008 (1.001-1.035); Urobilinogen,Urine <2.0 mg/dL (<2.0)
[2021-02-16 15:48] VITALS: BP 148/84; PULSE 65
== END 2021-02-16 15:48 | disposition home or self-care (01) ==
LOC: EC 13:16
DX: K59.00 Constipation, unspecified (principal); E78.5 Hyperlipidemia, unspecified; I10 Essential (primary) hypertension; Z90.89 Acquired absence of other organs
CPT/HCPCS: 36415; 74018; 74177; 80053; 81003; 83690; 85025; 96361; 96374; 96375; 99284

== ENCOUNTER 2021-02-22 19:37 | Emergency (ER) | payer BC ==
[2021-02-22 19:41] VITALS: BP 164/89; PULSE 72; RESP 19; TEMP 97.8
--- NOTE | 2021-02-22 19:59 | ED ---
General Adult HPI - General Chief complaint: Abdominal Pain Stated complaint: abd pain Time Seen by Provider: 02/22/21 19:40 Source: patient, RN notes reviewed, old records reviewed Mode of arrival: ambulatory Limitations: no limitations - History of Present Illness Initial comments: This is a 55-year-old male who presents emergency Department stating that he has lower abdominal pain. Patient states she was in the emergency department a few days ago and they did a CAT scan and lab work and told everything looked normal and he was to follow-up up this primary medical care doctor. Patient states she followed up with a primary medical care doctor today and he was not in so we saw the nurse practitioner and her practitioner told him to go to the emergency department. Patient states his symptoms haven't changed he still constipated he is having bowel movements but not very large once he still feels as though he needs to go more. Patient states he had a colonoscopy last June. Patient denies any nausea vomiting diarrhea. Patient denies any fever chills. Patient states the pain is not excruciating. Patient thinks lately it has been a ffecting his urination and wonders if he has urinary tract infection. - Related Data Home Medications Medication Instructions Recorded Confirmed Aspirin EC [Ecotrin Low Dose] 81 mg PO DAILY 10/11/18 02/16/21 Atorvastatin [Lipitor] 20 mg PO DAILY 10/11/18 02/16/21 hydroCHLOROthiazide [Hydrodiuril] 25 mg PO DAILY 10/11/18 02/16/21 lisinopriL [Zestril] 10 mg PO DAILY 10/11/18 02/16/21 bisacodyL [Dulcolax] 10 mg PO DAILY PRN 02/16/21 02/16/21 Allergies Allergy/AdvReac Type Severity Reaction Status Date / Time No Known Allergies Allergy Verified 02/22/21 19:41 Review of Systems ROS Statement: Those systems with pertinent positive or pertinent negative responses have been documented in the HPI. ROS Other: All systems not noted in ROS Statement are negative. Past Medical History Past Medical History: Hyperlipidemia, Hypertension Additional Past Medical History / Comment(s): sarcoidosis History of Any Multi-Drug Resistant Organisms: None Reported Past Surgical History: Appendectomy, Orthopedic Surgery Additional Past Surgical History / Comment(s): chest tubes place Past Anesthesia/Blood Transfusion Reactions: No Reported Reaction Past Psychological History: No Psychological Hx Reported Smoking Status: Never smoker Past Alcohol Use History: Occasional Past Drug Use History: None Reported - Past Family History Father Family Medical History: CVA/TIA, Myocardial Infarction ([place]) Additional Family Medical History / Comment(s): triple vessel CABG Mother Family Medical History: Diabetes Mellitus Additional Family Medical History / Comment(s): brain aneurysm General Exam - General Exam Comments Initial Comments: GENERAL: Patient is well-developed and well-nourished. Patient is nontoxic and well- hydrated and is in mild distress. ENT: Neck is soft and supple. No significant lymphadenopathy is noted. Oropharynx is clear. Moist mucous membranes. Neck has full range of motion without eliciting any pain. EYES: The sclera were anicteric and conjunctiva were pink and moist. Extraocular movements were intact and pupils were equal round and reactive to light. Eyelids were unremarkable. PULMONARY: Unlabored respirations. Good breath sounds bilaterally. No audible rales rhonchi or wheezing was noted. CARDIOVASCULAR: There is a regular rate and rhythm without any murmurs gallops or rubs. ABDOMEN: Soft and nontender with normal bowel sounds. Slight distention the suprapubic region SKIN: Skin is clear with no lesions or rashes and otherwise unremarkable. NEUROLOGIC: Patient is alert and oriented x3. Cranial nerves II through XII are grossly int act. Motor and sensory are also intact. Normal speech, volume and content. Symmetrical smile. MUSCULOSKELETAL: Normal extremities with adequate strength and full range of motion. LYMPHATICS: No significant lymphadenopathy is noted PSYCHIATRIC: Normal psychiatric evaluation. Limitations: no limitations Course Vital Signs 02/22/21 19:38 Temperature 97.8 F Pulse Rate 72 Respiratory 19 Rate Blood Pressure 164/89 O2 Sat by Pulse 98 Oximetry Medical Decision Making - Medical Decision Making Bladder scanner showed flutter 120 mL of fluid after the patient urinated. Patient's KUB shows some mild right-sided stool but there is no signs of consti pation that is significant. - Lab Data Lab Results 02/22/21 Range/Units 19:58 Urine Color Light Yellow Urine Appearance Clear (Clear) Urine pH 5.5 (5.0-8.0) Ur Specific [place] 1.012 (1.001-1.035) Urine Protein Negative (Negative) Urine Glucose (UA) Negative (Negative) Urine Ketones Negative (Negative) Urine Blood Negative (Negative) Urine Nitrite Negative (Negative) Urine Bilirubin Negative (Negative) Urine Urobilinogen <2.0 (<2.0) mg/dL Ur Leukocyte Esterase Negative (Negative) Disposition Clinical Impression: Abdominal pain Disposition: HOME SELF-CARE Instructions (If sedation given, give patient instructions): Abdominal Pain (ED) Referrals: Rosy Lin MD [STAFF PHYSICIAN] - 1-2 days Time of Disposition: 20:40
[2021-02-22 20:04] LABS: Appearance,Urine Clear (Clear); Bilirubin,Urine Negative (Negative); Blood,Urine Negative (Negative); Color,Urine Light Yellow; Glucose,Urine (UA) Negative (Negative); Ketones,Urine Negative (Negative); Leukocyte Esterase,Urine Negative (Negative); Nitrite,Urine Negative (Negative); PH, Urine 5.5 (5.0-8.0); Protein,Urine Negative (Negative); Specific Gravity,Urine 1.012 (1.001-1.035); Urobilinogen,Urine <2.0 mg/dL (<2.0)
--- NOTE | 2021-02-22 21:19 | XR ---
EXAMINATION TYPE: XR KUB DATE OF EXAM: 02/22/2021 COMPARISON: [id number] HISTORY: Abdomen pain x1 week TECHNIQUE: Upright abdomen FINDINGS: Normal colonic bowel gas is present. Psoas margins are normal. Minimal nonspecific small [place] gas contains air. No suspicious air-fluid levels or differential air-fluid levels are present. No free air is evident. No mass effect is evident. Organomegaly is not evident. Osseous structures appe ar within normal limits. There is some degenerative change noted at sacroiliac joints. IMPRESSION: 1. Nonspecific abdomen
== END 2021-02-22 23:00 | disposition home or self-care (01) ==
LOC: EC 19:37
DX: R10.9 Unspecified abdominal pain (principal); E78.5 Hyperlipidemia, unspecified; I10 Essential (primary) hypertension; Z90.89 Acquired absence of other organs
CPT/HCPCS: 74018; 81003; 99284

== ENCOUNTER 2021-07-30 09:54 | Observation (INO) | payer BC ==
[2021-07-30] MEDS ORDERED: ASPIRIN 81 MG PO STA (10:15)
--- NOTE | 2021-07-30 10:17 | ED ---
General Adult HPI - General Chief complaint: Chest Pain Stated complaint: Chest Pain Time Seen by Provider: 07/30/21 09:58 Source: patient Mode of arrival: ambulatory Limitations: no limitations - History of Present Illness Initial comments: Dictation was produced using [employer] dictation software. please excuse any grammatical, word or spelling errors. Chief Complaint: 56-year-old male past medical history of hypertension and dyslipidemia presents emergency department for chest pain History of Present Illness: Patient is a 56-year-old male who presents emergency department for chest pain. Patient has been having chest pain since Saturday of last week. The last 2-3 days he's been having left anterior chest pain that radiates to the shoulder and jaw. He was seen at an emergency department reason initially evaluated. He was a freestanding ED and they want patient to be transferred for cardiac observation but he refused. She states that his symptoms have been ongoing about him to come back to the emergency department today. Patient denies any history of cardiac disease. Denies shortness of breath. States that it's a pressure-like sensation that radiates to his left shoulder and left jaw. States that it's mild notes.. The ROS documented in this emergency department record has been reviewed and confirmed by me. Those systems with pertinent positive or negative responses have been documented in the HPI. All other systems are other negative and/or noncontributory. PHYSICAL EXAM: General Impression: Alert and oriented x3, not in acute distress HEENT: Normocephalic atraumatic, extra-ocular movements intact, pupils equal and reactive to light bilaterally, mucous membranes moist. Cardiovascular: Heart regular rate and rhythm Chest: Able to complete full sentences, no retractions, no tachypnea Abdomen: abdomen soft, non-tender, non-distended, no organomegaly Musculoskeletal: Pulses present and equal in all extremities, no peripheral edema Motor: no focal deficits noted Neurological: CN II-XII grossly intact, no focal motor or sensory deficits noted Skin: Intact with no visualized rashes Psych: Normal affect and mood ED course: 56-year-old male presents emergency prior for chest pain concerning for acute coronary syndrome. Signs upon arrival are within acceptable limits. EKG does not show any signs of ischemia infarction. Laboratory evaluation obtained. CBC, coag panel, metabolic panel is unremarkable. Troponin is negative. Patient given aspirin. Chest x-ray is nonacute. Patient reevaluated bedside finally stable medical condition. She does complain of some mild chest pain. He however is well-appearing. Patient be admitted for cardiac monitoring, surgical incision and cardiology consultation. Case is discussed with Murtaza who is willing to accept patient's [facility]. EKG interpretation: Ventricular rate 68, normal sinus rhythm, MA interval 172, QRS 90, QTC 416. No MA prolongation, no QTC prolongation, no ST or T-wave changes noted. EKG compared to 08/10/2020 showing no changes. Overall, this EKG is unremarkable - Related Data Home Medications Medication Instructions Recorded Confirmed Aspirin EC [Ecotrin Low Dose] 81 mg PO DAILY 10/11/18 07/30/21 Atorvastatin [Lipitor] 20 mg PO DAILY 10/11/18 07/30/21 hydroCHLOROthiazide [Hydrodiuril] 25 mg PO DAILY 10/11/18 07/30/21 lisinopriL [Zestril] 10 mg PO DAILY 10/11/18 07/30/21 Tamsulosin HCl [Flomax] 0.4 mg PO DAILY PRN 07/30/21 07/30/21 Allergies Allergy/AdvReac Type Severity Reaction Status Date / Time No Known Allergies Allergy Verified 07/30/21 10:43 Review of Systems ROS Statement: Those systems with pertinent positive or pertinent negative responses have been documented in the HPI. ROS Other: All systems not noted in ROS Statement are negative. Past Medical History Past Medical History: Hyperlipidemia, Hypertension Additional Past Medical History / Comment(s): sarcoidosis History of Any Multi-Drug Resistant Organisms: None Reported Past Surgical History: Appendectomy, Orthopedic Surgery Additional Past Surgical History / Comment(s): chest tubes place Past Anesthesia/Blood Transfusion Reactions: No Reported Reaction Past Psychological History: No Psychological Hx Reported Smoking Status: Never smoker Past Alcohol Use History: Occasional Past Drug Use History: None Reported - Past Family History Father Family Medical History: CVA/TIA, Myocardial Infarction ([place]) Additional Family Medical History / Comment(s): triple vessel CABG Mother Family Medical History: Diabetes Mellitus Additional Family Medical History / Comment(s): brain aneurysm General Exam Limitations: no limitations Course Vital Signs 07/30/21 09:57 Temperature 97.8 F Pulse Rate 72 Respiratory 18 Rate Blood Pressure 157/94 O2 Sat by Pulse 99 Oximetry Medical Decision Making - Lab Data Result diagrams: 07/30/21 10:35 07/30/21 10:35 Lab Results 07/30/21 07/30/21 07/30/21 Range/Units 10:35 10:35 10:35 WBC 5.4 (3.8-10.6) k/uL RBC 4.68 (4.30-5.90) m/uL Hgb 15.6 (13.0-17.5) gm/dL Hct 44.6 (39.0-53.0) % MCV 95.4 (80.0-100.0) fL MCH 33.2 (25.0-35.0) pg MCHC 34.9 (31.0-37.0) g/dL RDW 12.1 (11.5-15.5) % Plt Count 213 (150-450) k/uL MPV 7.7 Neutrophils % 77 % Lymphocytes % 12 % Monocytes % 6 % Eosinophils % 2 % Basophils % 1 % Neutrophils # 4.1 (1.3-7.7) k/uL Lymphocytes # 0.6 L (1.0-4.8) k/uL Monocytes # 0.3 (0-1.0) k/uL Eosinophils # 0.1 (0-0.7) k/uL Basophils # 0.1 (0-0.2) k/uL PT 9.9 (9.0-12.0) sec INR 0.9 (<1.2) APTT 23.6 (22.0-30.0) sec Sodium 137 (137-145) mmol/L Potassium 4.3 (3.5-5.1) mmol/L Chloride 104 (98-107) mmol/L Carbon Dioxide 25 (22-30) mmol/L Anion Gap 8 mmol/L BUN 18 (9-20) mg/dL Creatinine 0.93 (0.66-1.25) mg/dL Est GFR (CKD-EPI)AfAm >90 (>60 ml/min/1.73 sqM) Est GFR (CKD-EPI)NonAf >90 (>60 ml/min/1.73 sqM) Glucose 97 (74-99) mg/dL Calcium 9.5 (8.4-10.2) mg/dL Magnesium 1.8 (1.6-2.3) mg/dL Total Bilirubin 0.8 (0.2-1.3) mg/dL AST 26 (17-59) U/L ALT 19 (4-49) U/L Alkaline Phosphatase 45 (38-126) U/L Troponin I (0.000-0.034) ng/mL Total Protein 6.9 (6.3-8.2) g/dL Albumin 4.3 (3.5-5.0) g/dL Lipase 149 (23-300) U/L 07/30/ Range/Units 10:35 WBC (3.8-10.6) k/uL RBC (4.30-5.90) m/uL Hgb (13.0-17.5) gm/dL Hct (39.0-53.0) % MCV (80.0-100.0) fL MCH (25.0-35.0) pg MCHC (31.0-37.0) g/dL RDW (11.5-15.5) % Plt Count (150-450) k/uL MPV Neutrophils % % Lymphocytes % % Monocytes % % Eosinophils % % Basophils % % Neutrophils # (1.3-7.7) k/uL Lymphocytes # (1.0-4.8) k/uL Monocytes # (0-1.0) k/uL Eosinophils # (0-0.7) k/uL Basophils # (0-0.2) k/uL PT (9.0-12.0) sec INR (<1.2) APTT (22.0-30.0) sec Sodium (137-145) mmol/L Potassium (3.5-5.1) mmol/L Chloride (98-107) mmol/L Carbon Dioxide (22-30) mmol/L Anion Gap mmol/L BUN (9-20) mg/dL Creatinine (0.66-1.25) mg/dL Est GFR (CKD-EPI)AfAm (>60 ml/min/1.73 sqM) Est GFR (CKD-EPI)NonAf (>60 ml/min/1.73 sqM) Glucose (74-99) mg/dL Calcium (8.4-10.2) mg/dL Magnesium (1.6-2.3) mg/dL Total Bilirubin (0.2-1.3) mg/dL AST (17-59) U/L ALT (4-49) U/L Alkaline Phosphatase (38-126) U/L Troponin I <0.012 (0.000-0.034) ng/mL Total Protein (6.3-8.2) g/dL Albumin (3.5-5.0) g/dL Lipase (23-300) U/L Disposition Clinical Impression: Chest pain Disposition: ADMITTED IP TO THIS HOSP Condition: Fair Referrals: Sree Kohler MD [Primary Care Provider] - 1-2 days
[2021-07-30 10:50] LABS: Basophils # (A) 0.1 k/uL (0-0.2); Basophils % (A) 1 %; Eosinophils # (A) 0.1 k/uL (0-0.7); Eosinophils % (A) 2 %; HCT 44.6 % (39.0-53.0); HGB 15.6 gm/dL (13.0-17.5); Lymphocytes # (A) 0.6 k/uL (1.0-4.8); Lymphocytes % (A) 12 %; MCH 33.2 pg (25.0-35.0); MCHC 34.9 g/dL (31.0-37.0); MCV 95.4 fL (80.0-100.0); Mean Platelet Volume 7.7; Monocytes # (A) 0.3 k/uL (0-1.0); Monocytes % (A) 6 %; Neutrophils # (A) 4.1 k/uL (1.3-7.7); Neutrophils % (A) 77 %; Platelet Count 213 k/uL (150-450); RBC 4.68 m/uL (4.30-5.90); RDW 12.1 % (11.5-15.5); WBC 5.4 k/uL (3.8-10.6)
--- NOTE | 2021-07-30 10:55 | XR ---
EXAMINATION TYPE: XR chest 1V portable DATE OF EXAM: 07/30/2021 10:47 AM COMPARISON:Chest radiographs from 2019 CLINICAL INDICATION:Male, 56 years old with history of chest pain; [facility], TECHNIQUE: Frontal view of the chest. FINDINGS: Lungs/Pleura: There is no evidence of pleural effusion, focal consolidation, or pneumothorax. Pulmonary vascularity: Unremarkable. Heart/mediastinum: Cardiomediastinal silhouette is unremarkable. Musculoskeletal: No acute osseous pathology. IMPRESSION: No acute cardiopulmonary disease/process.
[2021-07-30 10:59] LABS: ALT 19 U/L (4-49); AST 26 U/L (17-59); African American GFR (CKD) >90 (>60 ml/min/1.73 sqM); Albumin 4.3 g/dL (3.5-5.0); Alkaline Phosphatase 45 U/L (38-126); Anion Gap 8 mmol/L; Blood Urea Nitrogen 18 mg/dL (9-20); Calcium 9.5 mg/dL (8.4-10.2); Carbon Dioxide 25 mmol/L (22-30); Chloride 104 mmol/L (98-107); Glucose 97 mg/dL (74-99); INR 0.9 (<1.2); Lipase 149 U/L (23-300); Magnesium 1.8 mg/dL (1.6-2.3); Non-African American GFR(CKD) >90 (>60 ml/min/1.73 sqM); Partial Thromboplastin Time 23.6 sec (22.0-30.0); Potassium 4.3 mmol/L (3.5-5.1); Prothrombin Time 9.9 sec (9.0-12.0); Sodium 137 mmol/L (137-145); Total Bilirubin 0.8 mg/dL (0.2-1.3); Total Protein 6.9 g/dL (6.3-8.2)
[2021-07-30] MEDS ORDERED: NALOXONE 0.4 MG/ML 1 ML VIAL IV PRN (11:09)
[2021-07-30] MEDS ORDERED: ACETAMINOPHEN TAB 325 MG TAB PO PRN (11:09)
[2021-07-30] MEDS ORDERED: TAMSULOSIN 0.4 MG CAP.ER.24H PO PRN (11:09)
[2021-07-30] MEDS ORDERED: ONDANSETRON 4 MG/2 ML VIAL IVP PRN (11:15)
[2021-07-30] MEDS ORDERED: HYDROcodone/APAP 5-325MG 1 EACH TAB PO PRN (11:15)
[2021-07-30] MEDS ORDERED: MELATONIN 3 MG TABLET PO PRN (11:15)
[2021-07-30] MEDS ORDERED: NITROGLYCERIN SL TABS 0.4 MG TAB SUBLINGUAL PRN (14:22)
--- NOTE | 2021-07-30 14:29 | P.HPIM ---
History of Present Illness H&P Date: 07/30/21 History of Presenting Illness: Patient is a very pleasant 56-year-old male with a past medical history of hypertension, hyperlipidemia, and BPH. He presented to the emergency department with a chief complaint of chest pain. Patient reports intermittent chest pain 2. Patient states he has been experiencing intermittent pressure-like pain to his left anterior chest that radiates into his left shoulder, neck, and jaw. Patient states this pain comes on at rest, while driving, and with activity and seems to be worse with activity. He denies anything making this pain better or worse And reports that it's hard to describe the sensation, but states it waxes and wanes and does not seem to have any similar precipitating factors. Patient reports that his last episode was accompanied by dizziness and lightheadedness but denies any other complaints including headache, diaphoresis, palpitations, shortness of breath, dyspnea with exertion, abdominal pain, nausea, vomiting, or experiencing any numbness/tingling/weakness in his extremities. Patient denies history of tobacco use, alcohol, or drugs. Patient reports family history of cardiac problems and reports his father's first heart attack was at the age of 50 resulting in bypass by the age of 70. Pt and his at bedside does report that he has also been under a lot of stress recently and has also noted an increase in his blood pressures at home. Upon arrival to facility blood pressure was 157/94. In the emergency department patient underwent a full evaluation. EKG showed normal sinus rhythm at 68 bpm with no noted T-wave or ST abnormalities. Chest x-ray was negative for acute cardiopulmonary process. CBC and CMP showing no significant abnormalities. Troponin normal at less than 0.012. Patient is being admitted under our services with consultation to cardiology. Review of systems: Pertinent positives and negatives as discussed in HPI, a complete review of systems was performed and all other systems are negative. Physical exam: Vital signs reviewed and stable. General: Nontoxic, no distress and appears stated age. Derm: Skin warm and dry, normal coloration for ethnicity. Head: Atraumatic, normocephalic and symmetric. Eyes: EOMs intact, no lid lag, and anicteric sclera Mouth: no lip lesions, mucus membranes moist Cardiovascular: regular rate and rhythm with normal S1S2, no murmur, positive posterior tibial pulses bilaterally, and cap refill < 2 seconds. Lungs: Respirations even, regular, and unlabored on room air. Lungs CTA bilaterally, no rhonchi, no rales, no wheezing, and no accessory muscle usage. Abdominal: soft, nontender to palpation, no guarding, no appreciable organomegaly Ext: ROM intact. No gross muscle atrophy, no edema, no contractures. Pain to medial and posterior thigh upon palpation. Neuro: Speech clear, face symmetrical and CN II-XII grossly intact with no noted focal neuro deficits Psych: Alert and oriented to person, place, time, and situation. Appropriate and pleasant affect. Assessment and Plan of Care Atypical chest pain radiating into left shoulder and jaw, rule out ACS -Cardiology consult -Telemetry monitoring -Trend troponins -Echocardiogram -Cardiac diet -Aspirin 324 mg by mouth 1 dose followed by daily aspirin 81 mg. -Nitrostat 0.4 mg sublingual tablets every 5 minutes as needed for chest pain. -Lipid profile and Hgb A1c with a.m. labs. Hypertension Continue daily medication regimen with hydrochlorothiazide and lisinopril. Hyperlipidemia Continue daily medication regimen with atorvastatin. Lipid profile with a.m. labs. BPH Continue daily medication regimen with Flomax The patient is admitted with an anticipated less than 2 midnight stay for evaluation of chest pain. CODE STATUS: Full code DVT prophylaxis: Heparin Discussed with: Patient, , and RN Anticipated discharge date: 1-[address]: Home A total of 45 minutes was spent on the care of this complex patient more than 5 0% of the time was spent in counseling and care coordination. Past Medical History Past Medical History: Hyperlipidemia, Hypertension Additional Past Medical History / Comment(s): sarcoidosis History of Any Multi-Drug Resistant Organisms: None Reported Past Surgical History: Appendectomy, Orthopedic Surgery Additional Past Surgical History / Comment(s): chest tubes place Past Anesthesia/Blood Transfusion Reactions: No Reported Reaction Past Psychological History: No Psychological Hx Reported Smoking Status: Never smoker Past Alcohol Use History: Occasional Past Drug Use History: None Reported - Past Family History Father Family Medical History: CVA/TIA, Myocardial Infarction ([place]) Additional Family Medical History / Comment(s): triple vessel CABG Mother Family Medical History: Diabetes Mellitus Additional Family Medical History / Comment(s): brain aneurysm Medications and Allergies Home Medications Medication Instructions Recorded Confirmed Type Aspirin EC [Ecotrin Low Dose] 81 mg PO DAILY 10/11/18 07/30/21 History Atorvastatin [Lipitor] 20 mg PO DAILY 10/11/18 07/30/21 History hydroCHLOROthiazide [Hydrodiuril] 25 mg PO DAILY 10/11/18 07/30/21 History lisinopriL [Zestril] 10 mg PO DAILY 10/11/18 07/30/21 History Tamsulosin HCl [Flomax] 0.4 mg PO DAILY PRN 07/30/21 07/30/21 History Allergies Allergy/AdvReac Type Severity Reaction Status Date / Time No Known Allergies Allergy Verified 07/30/21 10:43 Physical Exam Vitals: Vital Signs Temp Pulse Resp BP Pulse Ox 07/30/21 09:57 97.8 F 72 18 157/94 99 Intake and Output 07/29/21 07/30/21 07/30/21 22:59 06:59 14:59 Other: Weight 83.915 kg Results CBC & Chem 7: 07/30/21 10:35 07/30/21 10:35 Labs: Abnormal Lab Results - Last 24 Hours (Table) 07/30/21 Range/Units 10:35 Lymphocytes # 0.6 L (1.0-4.8) k/uL
[2021-07-30] MEDS: HEPARIN SODIUM,PORCINE/PF 5,000 UNIT/0.5 ML SYRINGE SQ SCH ×2 (17:46→23:03)
--- NOTE | 2021-07-30 17:47 | US ---
EXAMINATION TYPE: US venous doppler duplex LE RT DATE OF EXAM: 07/30/2021 4:48 PM COMPARISON: US CLINICAL HISTORY: leg pain. Leg pain. Patient takes aspirin. SIDE PERFORMED: Right TECHNIQUE: The lower extremity deep venous system is examined utilizing real time linear array sonog halima with graded compression, doppler sonography and color-flow sonography. VESSELS IMAGED: Common Femoral Vein Deep Femoral Vein Greater Saphenous Vein * Femoral Vein Popliteal Vein Small Saphenous Vein * Proximal Calf Veins (* superficial vessels) Right Leg: No evidence of DVT in veins imaged at this time. IMPRESSION: No evidence of right leg deep vein thrombosis.
--- NOTE | 2021-07-30 19:45 | CONS ---
CONSULTATION HISTORY OF PRESENT ILLNESS: Mr. Bee is a 56-year-old male with a history of hypertension, hyperlipidemia, who presented to the hospital with symptoms of chest discomfort. His discomfort has been going on for the last 3 days, not activity-related. He was seen at [facility] 3 days ago while driving back from work and his cardiac enzymes according to him were unremarkable. He was being recommend to be transferred to the hospital, but elected to come closer to home. He woke up, he had more pain today and came into the emergency room. The discomfort is not activity-related. He has mild dyspnea. No dizziness. No palpitations. No syncope. He has no prior documented history of cardiac disease. He has a history of sarcoidosis. He was in the hospital in the summer of last year with symptoms of chest discomfort. He has underwent a stress echocardiogram in October of 2018 and at that time had no evidence of stress- induced ischemia with an average exercise tolerance. His most recent echo was done in July of 2020 and at that time, his left ventricular systolic function was preserved with mild mitral and tricuspid regurgitation. The patient is average in his exercise tolerance, has no activity-related chest discomfort. He has no PND, orthopnea. No peripheral edema. No dizziness or syncope. His coronary risk factors are positive for hypertension, hyperlipidemia, as well as family history of premature coronary artery disease in his father. He is a nonsmoker. MEDICATIONS: His medications at home include lisinopril 10 mg daily, hydrochlorothiazide 25 mg daily, Flomax 0.4 mg on a p.r.n. basis, Lipitor 20 mg daily and aspirin once a day. REVIEW OF SYSTEMS: Respiratory system: He has no recent wheezing or cough. He has mild dyspnea on exertion. GI system: No recent GI bleeding. No peptic ulcer disease. system: No dysuria or hematuria. Nervous system: No stroke or seizure. PHYSICAL EXAMINATION: A 56-year-old male, alert, oriented, in no apparent distress. Blood pressure 129/70 with a heart rate in the 60s. HEAD: Normocephalic. Eyes sclerae anicteric. NECK: Good carotid upstroke. No bruit. No jugular venous distention. LUNGS: Clear to auscultation. HEART: Regular rate and rhythm. S1, S2. No S3. No S4. No murmur or rub. ABDOMEN: Soft, nontender. Positive bowel sounds. No organomegaly. EXTREMITIES: No edema. Intact distal pulses. LAB DATA: Lab data revealed troponin less than 0.012 for 1 sample. BUN and creatinine of 18 and 0.93, potassium 4.3, hemoglobin of 15.6. EKG revealed a sinus mechanism, borderline left axis deviation, poor R-wave progression. Chest x-ray shows no acute infiltrate. IMPRESSION: 1. Chest discomfort of unclear etiology has some atypical features for ischemic heart disease. 2. Hypertension. 3. Hyperlipidemia. 4. Prior history of sarcoidosis diagnosed with transplant bronchial biopsy in remission. RECOMMENDATIONS: From the cardiac standpoint, we will obtain serial enzymes. If there is no evidence of acute coronary syndrome, and he had no further symptoms, then I will proceed with stress echocardiogram tomorrow. If there is any evidence of abnormality, then coronary angiography will be needed. Thank you for this consult. We will follow with you. MMLACIE / IJN: [id number] /
[2021-07-31 07:48] VITALS: BP 111/70; PULSE 61; RESP 20; TEMP 97.8
[2021-07-31] MEDS: HEPARIN SODIUM,PORCINE/PF 5,000 UNIT/0.5 ML SYRINGE SQ SCH (08:16)
[2021-07-31] MEDS ORDERED: hydroCHLOROthiazide 25 MG TAB PO SCH (09:00)
[2021-07-31] MEDS ORDERED: lisinopriL 10 MG TAB PO SCH (09:00)
[2021-07-31] MEDS ORDERED: ATORVASTATIN 20 MG TAB PO SCH (09:00)
[2021-07-31] MEDS ORDERED: ASPIRIN 81 MG PO SCH (09:00)
[2021-07-31 09:21] LABS: Basophils # (A) 0.02 X 10*3/uL (0.00-0.10); Basophils % (A) 0.4 %; Eosinophils # (A) 0.12 X 10*3/uL (0.04-0.35); Eosinophils % (A) 2.6 %; HGB 14.9 g/dL (13.0-17.0); Lymphocytes # (A) 0.71 X 10*3/uL (0.90-5.00); Lymphocytes % (A) 15.4 %; MCH 32.7 pg (27.0-32.0); MCHC 34.7 g/dL (32.0-37.0); MCV 94.3 fL (80.0-97.0); Mean Platelet Volume 10.7 fL (9.5-12.2); Monocytes % (A) 10.8 %; Neutrophils # (A) 3.27 X 10*3/uL (1.80-7.70); Neutrophils % (A) 70.8 %; Platelet Count 218 X 10*3/uL (140-440); RBC 4.56 X 10*6/uL (4.40-5.60); RDW 12.2 % (11.5-14.5); WBC 4.62 X 10*3/uL (4.50-10.00)
[2021-07-31 09:33] LABS: ALT 14 U/L (10-49); AST 15 U/L (14-35); African American GFR (CKD) 95.7 (60.0-200.0); Albumin 4.2 g/dL (3.8-4.9); Alkaline Phosphatase 47 U/L (41-126); Blood Urea Nitrogen 14.9 mg/dL (9.0-27.0); Calcium 9.4 mg/dL (8.7-10.3); Carbon Dioxide 27.8 mmol/L (20.0-27.5); Chloride 99 mmol/L (96-109); Chol/HDL Ratio 3.42 Ratio; Glucose 96 mg/dL (70-110); LDL Cholesterol,Calculated 65.1 mg/dL (0.0-131.0); Magnesium 1.9 mg/dL (1.5-2.4); Non-African American GFR(CKD) 82.6 (60.0-200.0); Potassium 4.4 mmol/L (3.5-5.5); Sodium 139 mmol/L (135-145); Total Protein 6.2 g/dL (6.2-8.2)
--- NOTE | 2021-07-31 10:53 | P.PN ---
Subjective Progress Note Date: 07/31/21 HISTORY OF PRESENT ILLNESS: This is a 56-year-old male with a history of hypertension, hyperlipidemia, and family history of premature coronary artery disease. Patient presented to the hospital with a chief complaint of chest pain. The patient was examined this morning. He denies any chest pain or pressure. Denies shortness of breath. Vital signs are stable. PHYSICAL EXAM: VITAL SIGNS: Reviewed. GENERAL: Well-developed in no acute distress. NECK: Supple. No JVD or thyromegaly LUNGS: Respirations even and unlabored. Lungs essentially clear to auscultation bilaterally. HEART: Regular rate and rhythm. S1 and S2 heard. EXTREMITIES: Normal range of motion. No clubbing or cyanosis. Peripheral pulses intact. No lower extremity edema ASSESSMENT: Chest pain Hypertension Hyperlipidemia Family history of premature coronary artery disease PLAN: 2D echo ordered. Await results. Patient to undergo stress echo today. If stress test is negative and 2D echo does not reveal any significant abnormalites, he may be discharged home today and follow up outpatient with Dr. Quintanilla. Nurse practitioner note has been reviewed by physician. Signing provider agrees with the documented findings, assessment, and plan of care. Objective - Vital Signs Vital signs: Vital Signs Temp 97.8 F 07/31/21 07:00 Pulse 61 07/31/21 07:00 Resp 20 07/31/21 07:00 BP 111/70 07/31/21 07:00 Pulse Ox 97 07/31/21 07:00 Intake & Output 07/30/21 07/31/21 07/31/21 18:59 06:59 18:59 Weight 83.915 kg Other: # Voids 1 1 - Labs CBC & Chem 7: 07/31/21 05:35 07/31/21 05:35 Labs: Abnormal Lab Results - Last 24 Hours (Table) 07/30/21 07/31/21 07/31/21 Range/Units 10:35 05:35 05:35 MCH 32.7 H (27.0-32.0) pg Lymphocytes # 0.6 L 0.71 L (1.0-4.8) k/uL Carbon Dioxide 27.8 H (20.0-27.5) mmol/L Triglycerides 262.00 H (0.00-149.00) mg/dL VLDL Cholesterol, Calc 52.40 H (5.00-40.00) mg/dL
[2021-07-31] MEDS ORDERED: ALPRAZolam 0.25 MG TAB PO STA (13:50)
--- NOTE | 2021-07-31 14:06 | P.DS ---
Providers Date of admission: 07/30/21 11:32 Expected date of discharge: 07/31/21 Attending physician: David Ramirez MD Consults: 07/30/21 11:20 Consult Physician Routine Consulting Provider: Harleen Quintanilla Consult Reason/Comments: CP, rule out ACS Do you want consulting provider notified?: Yes Primary care physician: Sree Foss [facility] Course: Discharge Diagnosis: Atypical chest pain radiating into left shoulder and jaw, acute coronary event ruled out Hypertension Hyperlipidemia and hypertriglyceridemia Anxiety BPH Hospital Course: Patient is a very pleasant 56-year-old male with a past medical history of hypertension, hyperlipidemia, and BPH. He presented to the emergency department with a chief complaint of chest pain. Patient reported intermittent chest pain 2. Patient stated he has been experiencing intermittent pressure-like pain to his left anterior chest that radiates into his left shoulder, neck, and jaw. Patient stated this pain comes on at rest, while driving, and with activity and seems to be worse with activity. He denied anything making this pain better or worse And reported that it's hard to describe the sensation, but states it waxes and wanes and does not seem to have any similar precipitating factors. Patient reported that his last episode was accompanied by dizziness and lightheadedness. Patient denied history of tobacco use, alcohol, or drugs. Patient reported family history of cardiac problems and reports his father's first heart attack was at the age of 50 resulting in bypass by the age of 70. Pt and his at bedside does report that he has also been under a lot of stress recently and has also noted an increase in his blood pressures at home. Upon arrival to facility blood pressure was 157/94. In the emergency department patient underwent a full evaluation. EKG showed normal sinus rhythm at 68 bpm with no noted T-wave or ST abnormalities. Chest x-ray was negative for acute cardiopulmonary process. CBC and CMP showing no significant abnormalities. Troponin normal at less than 0.012. Patient was admitted under our services with consultation to cardiology. Patient was monitored overnight, had full resolution of chest pain and denied any further complaints including headache, lightheadedness, dizziness, palpitations, shortness of breath, or experiencing any numbness/tingling/weakness in his extremities. Patient reports he feels his chest pain does correlate with stress, as it has been a very stressful year for him and his family. Right lower extremity venous Doppler completed secondary to patient's reports of pain to medial and posterior thigh upon palpation, Dopplers negative for DVT. Troponins were trended resulting at < 0.012 x3 draws. He underwent a stress echo and cardiology reported normal findings and recommended follow-up outpatient in our office in 1 week. Lipid profile did reveal an elevated triglyceride at 262 along with elevated VLDL of 52.4. Atorvastatin increased to 40 mg nightly and patient placed on fenofibrate. Patient otherwise to continue daily medication regimen consisting of aspirin, hydrochlorothiazide, lisinopril, and Flomax. Patient also given low-dose Xanax 0.25 mg tablets x 9 for anxiety. Pt instructed this is a benzodiazepine and do not recommend a daily basis as high rate of dependence. Patient is medically stable for discharge home at this time, he is to follow-up with Dr. Kohler in 1-2 days for posthospital evaluation and to further discuss anti-anxiolytics and to follow up with cardiology, Dr. Quintanilla in 1 week. Physical exam: Vital signs reviewed and stable. General: Nontoxic, no distress and appears stated age. Derm: Skin warm and dry, normal coloration for ethnicity. Head: Atraumatic, normocephalic and symmetric. Eyes: EOMs intact, no lid lag, and anicteric sclera Mouth: no lip lesions, mucus membranes moist Cardiovascular: regular rate and rhythm with normal S1S2, no murmur, positive posterior tibial pulses bilaterally, and cap refill < 2 seconds. Lungs: Respirations even, regular, and unlabored on room air. Lungs CTA bilaterally, no rhonchi, no rales, no wheezing, and no accessory muscle usage. Abdominal: soft, nontender to palpation, no guarding, no appreciable or ganomegaly Ext: ROM intact. No gross muscle atrophy, no edema, no contractures. Pain to medial and posterior thigh upon palpation. Neuro: Speech clear, face symmetrical and CN II-XII grossly intact with no noted focal neuro deficits Psych: Alert and oriented to person, place, time, and situation. Appropriate and pleasant affect. A total of 45 minutes was spent on the care of this complex patient more than 50% of the time was spent in counseling and care coordination. Patient Condition at Discharge: Stable Plan - Discharge Summary Discharge Rx Participant: No New Discharge Prescriptions: New Fenofibrate 120 mg PO DAILY 30 Days #30 tablet Atorvastatin [Lipitor] 40 mg PO HS 30 Days #30 tablet ALPRAZolam [Xanax] 0.25 mg PO Q8HR PRN 3 Days #9 tab PRN Reason: Anxiety Continue Aspirin EC [Ecotrin Low Dose] 81 mg PO DAILY lisinopriL [Zestril] 10 mg PO DAILY hydroCHLOROthiazide [Hydrodiuril] 25 mg PO DAILY Tamsulosin HCl [Flomax] 0.4 mg PO DAILY PRN PRN Reason: PROSTATE Discontinued Atorvastatin [Lipitor] 20 mg PO DAILY Discharge Medication List Aspirin EC [Ecotrin Low Dose] 81 mg PO DAILY 10/11/18 [History] hydroCHLOROthiazide [Hydrodiuril] 25 mg PO DAILY 10/11/18 [History] lisinopriL [Zestril] 10 mg PO DAILY 10/11/18 [History] Tamsulosin HCl [Flomax] 0.4 mg PO DAILY PRN 07/30/21 [History] ALPRAZolam [Xanax] 0.25 mg PO Q8HR PRN 3 Days #9 tab 07/31/21 [Rx] Atorvastatin [Lipitor] 40 mg PO HS 30 Days #30 tablet 07/31/21 [Rx] Fenofibrate 120 mg PO DAILY 30 Days #30 tablet 07/31/21 [Rx] Follow up Appointment(s)/Referral(s): Harleen Quintanilla MD [STAFF PHYSICIAN] - 1 Week Sree Kohler MD [Primary Care Provider] - 1-2 days Patient Instructions/Handouts: Chest Pain (DC) Activity/Diet/Wound Care/Special Instructions: Activity: As tolerated. Take breaks as needed. Diet: Heart healthy and carb consistent diet. Avoid salts, or foods with hidden salts such as canned or boxed foods and frozen dinners. Extra salt makes your heart work harder and traps the fluid in your body for longer. Special Instructions: Take all of your medications as directed and remember to keep all of your doctor's appointments and follow-up as needed. Thank you for allowing us to participate in your care, it was truly a pleasure having you for our patient!!!
--- NOTE | 2021-07-31 16:04 | ECHOS ---
STRESS ECHOCARDIOGRAM INDICATIONS: Chest pain. BASELINE HEART RATE: 70 BASELINE BLOOD PRESSURE: 110/49 MAXIMUM HEART RATE: 166 MAXIMUM BLOOD PRESSURE: 216/67 85% MPHR: 138 100% MPHR: 162 METS: 11.7 MAXIMUM STAGE REACHED: 4 TOTAL EXERCISE TIME: 10:24 CLINICAL INFORMATION: STRESS DATA: Heart rate 70, pressure 110/49 mmHg. Baseline EKG showed sinus mechanism. The patient exercised on the treadmill according to Aneud[employer] protocol for a total of 10 minutes and 24 seconds and achieved 11.7 METS. Max heart rate was 166, which is about 100% of maximum predicted heart rate. Maximum blood pressure was 216 over 47 mmHg. Clinically the patient did not have any symptoms of chest pain or chest discomfort. The EKG did not show any significant ST or T-wave abnormalities concerning for ischemia. Echocardiogram images and echo images from parasternal long axis view, parasternal short axis, apical 4 chambers and apical 2 chambers were obtained as the baseline images at the peak of the heart rate as well as on recovery. The echocardiogram images showed good augmentation in the left ventricular systolic function without any evidence of wall motion abnormalities concerning for ischemia. CONCLUSION: 1. Excellent exercise tolerance. 2. Normal EKG in response to exercise. 3. Normal echocardiogram in response to exercise. MMODL / IJN: [id number] /
== END 2021-07-31 15:56 ==
LOC: EC 09:54 → 6NMEDSUR 11:32
PROVIDERS: ADMIT Internal Medicine; ATTEND Internal Medicine
DX: R07.89 Other chest pain (principal); I10 Essential (primary) hypertension; E78.5 Hyperlipidemia, unspecified; E78.1 Pure hyperglyceridemia; F41.9 Anxiety disorder, unspecified; N40.0 Benign prostatic hyperplasia without lower urinary tract symptoms; Z82.49 Family history of ischemic heart disease and other diseases of the circulatory system; R42 Dizziness and giddiness; D86.9 Sarcoidosis, unspecified; R06.00 Dyspnea, unspecified; I08.1 Rheumatic disorders of both mitral and tricuspid valves; Z63.8 Other specified problems related to primary support group; Z20.822 Contact with and (suspected) exposure to COVID-19; Z53.29 Procedure and treatment not carried out because of patient's decision for other reasons; Z79.82 Long term (current) use of aspirin; Z79.899 Other long term (current) drug therapy; Z71.9 Counseling, unspecified; Z90.49 Acquired absence of other specified parts of digestive tract; Z82.3 Family history of stroke; Z83.3 Family history of diabetes mellitus
CPT/HCPCS: 96372; 99285; 36415; 93005; 93306; 93351; 80061; 80053 ×2; 83690; 83735 ×2; 84484; 85025 ×2; 85610; 85730; 83036; 87635; 71045; 93971; G0378 ×2; J1644

== ENCOUNTER → 2021-08-14 | Outpatient (CLI) | payer BC ==
--- NOTE | 2021-08-15 07:26 | CT ---
EXAMINATION TYPE: CT chest wo con DATE OF EXAM: 08/14/2021 COMPARISON: CT chest October 10, 2012. CT abdomen and pelvis February 16, 2021. Chest x-ray July 30, 2021 HISTORY: pulmonary nodule CT DLP: 374.8 mGycm. Automated Exposure Control for Dose Reduction was Utilized. TECHNIQUE: CT scan of the thorax is performed without IV contrast. FINDINGS: LUNGS: Parenchymal nodularity throughout the bilateral lungs greatest in the right lung and greatest in the right lower lobe is redemonstrated with more prominent or larger nodules centrally near axial images 25 through 32 not significantly changed from 2013 study. No pleural effusion or pneumothorax i s seen bilaterally. Focal lateral pleural thickening is stable. No significant volume loss. Subpleura l nodularity in the left lung is stable. No new consolidation. Subcentimeter calcified right basilar nodules are benign granulomas are redemonstrated. MEDIASTINUM: Lack of IV contrast is noted to limit evaluation for mediastinal and especially hilar ad enopathy. There are calcified bilateral hilar and mediastinal lymph nodes redemonstrated. No cardio megaly or pericardial effusion is seen. Coronary artery calcification is again seen. OTHER: Some cortical thinning and volume loss in both kidneys is noted. Moderate multilevel spurring in the thoracic spine is seen. IMPRESSION: Chronic parenchymal changes including chronic nodularity redemonstrated. Calcified thorac ic adenopathy again seen. No significant change from 2013 CT suggest postinflammatory or granulomatou s etiology. No suspicious enlarging adenopathy noted. No new or acute findings evident.
== END | disposition home or self-care (01) ==
LOC: RADCTMAIN 17:45
PROVIDERS: ATTEND Family Medicine
DX: R91.8 Other nonspecific abnormal finding of lung field (principal); R59.0 Localized enlarged lymph nodes
CPT/HCPCS: 71250

== ENCOUNTER 2023-08-20 13:30 | Observation (INO) | payer BC ==
[2023-08-20 14:02] LABS: Basophils % (A) 0 %; Eosinophils # (A) 0.3 k/uL (0-0.7); Eosinophils % (A) 5 %; HCT 42.7 % (39.0-53.0); HGB 15.4 gm/dL (13.0-17.5); Lymphocytes # (A) 0.7 k/uL (1.0-4.8); Lymphocytes % (A) 12 %; MCH 33.8 pg (25.0-35.0); MCV 93.8 fL (80.0-100.0); Mean Platelet Volume 7.7; Monocytes # (A) 0.4 k/uL (0-1.0); Monocytes % (A) 6 %; Neutrophils # (A) 4.5 k/uL (1.3-7.7); Neutrophils % (A) 75 %; Platelet Count 222 k/uL (150-450); RBC 4.55 m/uL (4.30-5.90); RDW 12.5 % (11.5-15.5)
[2023-08-20 14:05] LABS: Appearance,Urine Clear (Clear); Bilirubin,Urine Negative (Negative); Blood,Urine Negative (Negative); Color,Urine Colorless; Glucose,Urine (UA) Negative (Negative); Ketones,Urine Negative (Negative); Leukocyte Esterase,Urine Negative (Negative); Nitrite,Urine Negative (Negative); Protein,Urine Negative (Negative); Specific Gravity,Urine 1.006 (1.001-1.035); Urobilinogen,Urine <2.0 mg/dL (<2.0)
[2023-08-20 14:12] LABS: INR 0.9 (<1.2); Partial Thromboplastin Time 25.3 sec (22.0-30.0)
[2023-08-20] MEDS ORDERED: NITROGLYCERIN OINT 1 INCH/GM PACKET TOPICAL STA (14:12)
--- NOTE | 2023-08-20 14:15 | ED ---
General Adult HPI - General Chief complaint: Chest Pain Stated complaint: Chest Pain Time Seen by Provider: 08/20/23 14:05 Source: patient, RN notes reviewed, old records reviewed Mode of arrival: ambulatory Limitations: no limitations - History of Present Illness Initial comments: This is a 4-year-old male who has a past history significant for hypertension high cholesterol as well as a strong family history of heart disease. Patient comes into the emergency department claiming that since she's been having on and off chest pain that radiates to his shoulder and up into his neck. Patient denies any shortness of breath and diaphoretic episode of nausea. Patient states it happened again today and it was stronger than it has been in the past when he came into the emergency department. Patient states he was here yesterday when he started having chest pain yesterday but ER was busy so he went home. Patient denies any recent fever chills or cough per patient denies any swelling to the legs or calf tenderness. Patient denies abdominal pain patient denies lightheadedness or dizziness. - Related Data Home Medications Medication Instructions Recorded Confirmed Aspirin EC [Ecotrin Low Dose] 81 mg PO HS 10/11/18 08/20/23 hydroCHLOROthiazide [Hydrodiuril] 25 mg PO DAILY 10/11/18 08/20/23 Tamsulosin HCl [Flomax] 0.4 mg PO DAILY 07/30/21 08/20/23 Cholecalciferol (Vitamin D3) 75 mcg PO HS 08/20/23 08/20/23 [Vitamin D3 (3000 Iu)] Metoprolol Succinate (ER) [Toprol 25 mg PO DAILY 08/20/23 08/20/23 Xl] Multivitamins, Thera [Multivitamin 1 tab PO HS 08/20/23 08/20/23 (formulary)] lisinopriL [Zestril] 10 mg PO HS 08/20/23 08/20/23 Previous Rx's Medication Instructions Recorded Atorvastatin [Lipitor] 40 mg PO HS 30 Days #30 tablet 07/31/21 Allergies Allergy/AdvReac Type Severity Reaction Status Date / Time No Known Allergies Allergy Verified 08/20/23 15:05 Review of Systems ROS Statement: Those systems with pertinent positive or pertinent negative responses have been documented in the HPI. ROS Other: All systems not noted in ROS Statement are negative. Past Medical History Past Medical History: Hyperlipidemia, Hypertension Additional Past Medical History / Comment(s): sarcoidosis History of Any Multi-Drug Resistant Organisms: None Reported Past Surgical History: Appendectomy, Orthopedic Surgery Additional Past Surgical History / Comment(s): chest tubes place Past Anesthesia/Blood Transfusion Reactions: No Reported Reaction Past Psychological History: No Psychological Hx Reported Smoking Status: Never smoker Past Alcohol Use History: Occasional Past Drug Use History: None Reported - Past Family History Father Family Medical History: CVA/TIA, Myocardial Infarction ([place]) Additional Family Medical History / Comment(s): triple vessel CABG Mother Family Medical History: Diabetes Mellitus Additional Family Medical History / Comment(s): brain aneurysm General Exam - General Exam Comments Initial Comments: GENERAL: Patient is well-developed and well-nourished. Patient is nontoxic and well- hydrated and is in mild distress. ENT: Neck is soft and supple. No significant lymphadenopathy is noted. Oropharynx is clear. Moist mucous membranes. Neck has full range of motion without eliciting any pain. EYES: The sclera were anicteric and conjunctiva were pink and moist. Extraocular movements were intact and pupils were equal round and reactive to light. Eyelids were unremarkable. PULMONARY: Unlabored respirations. Good breath sounds bilaterally. No audible rales rhonchi or wheezing was noted. CARDIOVASCULAR: There is a regular rate and rhythm without any murmurs gallops or rubs. ABDOMEN: Soft and nontender with normal bowel sounds. SKIN: Skin is clear with no lesions or rashes and otherwise unremarkable. NEUROLOGIC: Patient is alert and oriented x3. Cranial nerves II through XII are grossly intact. Motor and sensory are also intact. Normal speech, volume and content. Symmetrical smile. MUSCULOSKELETAL: Normal extremities with adequate strength and full range of motion. No lower extremity swelling or edema. No calf tenderness. LYMPHATICS: No significant lymphadenopathy is noted PSYCHIATRIC: Normal psychiatric evaluation. Limitations: no limitations Course Vital Signs 08/20/23 13:35 Temperature 97.9 F Pulse Rate 70 Respiratory 16 Rate Blood Pressure 173/86 O2 Sat by Pulse 98 Oximetry Medical Decision Making - Medical Decision Making EKG was interpreted by myself. EKG shows a sinus rhythm at 65 bpm OH interval is 177 QRS is 97 Q-T intervals 390 QTC is 49 per patient's EKG shows no ST segment elevation or depression. Was pt. sent in by a medical professional or institution (KATHIE Garcia, TANK PROCESSOR, urgent care, hospital, or skilled nursing...) When possible be specific @ -No Did you speak to anyone other than the patient for history (EMS, parent, family, police, friend...)? What history was obtained from this source @ -No Did you review nursing and triage notes (agree or disagree)? Why? @ -I reviewed and agree with nursing and triage notes Were old charts reviewed (outside hosp., previous admission, EMS record, old EKG, old radiological studies, urgent care reports/EKG's, skilled nursing records)? Report findings @ -I have reviewed Old charts and the lab work on this patient Differential Diagnosis (chest pain, altered mental status, abdominal pain women, abdominal pain men, vaginal bleeding, weakness, fever, dyspnea, syncope, headache, dizziness, GI bleed, back pain, seizure, CVA, palpatations, mental health, musculoskeletal)? @ -Differential Chest Pain: Stable Angina, Unstable Angina, STEMI, NSTEMI Aortic Dissection, Pneumothorax, Musculoskeletal, Esophageal Spasm GERD, Cholecystitis, Pancreatitis, Zoster, this is not meant to be an all-inclusive list. EKG interpreted by me (3pts min.). @ -As above X-rays interpreted by me (1pt min.). @ -Chest x-ray shows no acute abnormality CT interpreted by me (1pt min.). @ -None done U/S interpreted by me (1pt. min.). @ -None done What testing was considered but not performed or refused? (CT, X-rays, U/S, labs)? Why? @ -None What meds were considered but not given or refused? Why? @ -None Did you discuss the management of the patient with other professionals (professionals i.e. KATHIE Garcia, TANK PROCESSOR, lab, RT, psych nurse, public health social worker, unindentured apprentice, t eacher, armed security officer, mental health case manager)? Give summary @ -I spoke with sounds physicians and he agreed to admit the patient Was smoking cessation discussed for >3mins.? @ -No Was critical care preformed (if so, how long)? @ -No Were there social determinants of health that impacted care today? How? (Homelessness, low income, unemployed, alcoholism, drug addiction, transportation, low edu. Level, literacy, decrease access to med. care, [place] [facility], rehab)? @ -No Was there de-escalation of care discussed even if they declined (Discuss DNR or withdrawal of care, Hospice)? DNR status @ -No What co-morbidities impacted this encounter? (DM, HTN, Smoking, COPD, CAD, Cancer, CVA, ARF, Chemo, Hep., AIDS, mental health diagnosis, sleep apnea, morbid obesity)? @ -None Was patient admitted / discharged? Hospital course, mention meds given and route, prescriptions, significant lab abnormalities, going to OR and other pertinent info. @ -Patient was chest pain-free upon admission. I went back and spoke with the patient about his lab results x-rays he was in agreement with staying in the hospital. I admitted the patient is sound physician's I consulted cardiology. Undiagnosed new problem with uncertain prognosis? @ -No Drug Therapy requiring intensive monitoring for toxicity (Heparin, Nitro, Insulin, Cardizem)? @ -No Were any procedures done? @ -No Diagnosis/symptom? @ -Chest pain Acute, or Chronic, or Acute on Chronic? @ -Acute Uncomplicated (without systemic symptoms) or Complicated (systemic symptoms)? @ -Complicated Side effects of treatment? @ -No Exacerbation, Progression, or Severe Exacerbation? @ -No Poses a threat to life or bodily function? How? (Chest pain, [place], MA, pneumonia, PE, COPD, DKA, ARF, appy, cholecystitis, CVA, Diverticulitis, Homicidal, Suicidal, threat to staff... and all critical care pts) @ -Yes this could lead to an MA and an organ dysfunction - Lab Data Result diagrams: 08/20/23 13:49 08/20/23 13:49 Lab Results 08/20/23 08/20/23 08/20/23 Range/Units 13:49 13:49 13:49 WBC 6.0 (3.8-10.6) k/uL RBC 4.55 (4.30-5.90) m/uL Hgb 15.4 (13.0-17.5) gm/dL Hct 42.7 (39.0-53.0) % MCV 93.8 (80.0-100.0) fL MCH 33.8 (25.0-35.0) pg MCHC 36.0 (31.0-37.0) g/dL RDW 12.5 (11.5-15.5) % Plt Count 222 (150-450) k/uL MPV 7.7 Neutrophils % 75 % Lymphocytes % 12 % Monocytes % 6 % Eosinophils % 5 % Basophils % 0 % Neutrophils # 4.5 (1.3-7.7) k/uL Lymphocytes # 0.7 L (1.0-4.8) k/uL Monocytes # 0.4 (0-1.0) k/uL Eosinophils # 0.3 (0-0.7) k/uL Basophils # 0.0 (0-0.2) k/uL PT 10.0 (10.0-12.5) sec INR 0.9 (<1.2) APTT 25.3 (22.0-30.0) sec Sodium (137-145) mmol/L Potassium (3.5-5.1) mmol/L Chloride (98-107) mmol/L Carbon Dioxide (22-30) mmol/L Anion Gap mmol/L BUN (9-20) mg/dL Creatinine (0.66-1.25) mg/dL Est GFR (CKD-EPI)AfAm (>60 ml/min/1.73 sqM) Est GFR (CKD-EPI)NonAf (>60 ml/min/1.73 sqM) Glucose (74-99) mg/dL Calcium (8.4-10.2) mg/dL Magnesium (1.6-2.3) mg/dL Total Bilirubin (0.2-1.3) mg/dL AST (17-59) U/L ALT (4-49) U/L Alkaline Phosphatase (38-126) U/L Troponin I (0.000-0.034) ng/mL Total Protein (6.3-8.2) g/dL Albumin (3.5-5.0) g/dL Urine Color Colorless Urine Appearance Clear (Clear) Urine pH 5.0 (5.0-8.0) Ur Specific [place] 1.006 (1.001-1.035) Urine Protein Negative (Negative) Urine Glucose (UA) Negative (Negative) Urine Ketones Negative (Negative) Urine Blood Negative (Negative) Urine Nitrite Negative (Negative) Urine Bilirubin Negative (Negative) Urine Urobilinogen <2.0 (<2.0) mg/dL Ur Leukocyte Esterase Negative (Negative) 08/20/23 08/20/23 Range/Units 13:49 13:49 WBC (3.8-10.6) k/uL RBC (4.30-5.90) m/uL Hgb (13.0-17.5) gm/dL Hct (39.0-53.0) % MCV (80.0-100.0) fL MCH (25.0-35.0) pg MCHC (31.0-37.0) g/dL RDW (11.5-15.5) % Plt Count (150-450) k/uL MPV Neutrophils % % Lymphocytes % % Monocytes % % Eosinophils % % Basophils % % Neutrophils # (1.3-7.7) k/uL Lymphocytes # (1.0-4.8) k/uL Monocytes # (0-1.0) k/uL Eosinophils # (0-0.7) k/uL Basophils # (0-0.2) k/uL PT (10.0-12.5) sec INR (<1.2) APTT (22.0-30.0) sec Sodium 137 (137-145) mmol/L Potassium 4.1 (3.5-5.1) mmol/L Chloride 100 (98-107) mmol/L Carbon Dioxide 26 (22-30) mmol/L Anion Gap 11 mmol/L BUN 22 H (9-20) mg/dL Creatinine 0.99 (0.66-1.25) mg/dL Est GFR (CKD-EPI)AfAm >90 (>60 ml/min/1.73 sqM) Est GFR (CKD-EPI)NonAf 82 (>60 ml/min/1.73 sqM) Glucose 99 (74-99) mg/dL Calcium 9.4 (8.4-10.2) mg/dL Magnesium 1.9 (1.6-2.3) mg/dL Total Bilirubin 0.9 (0.2-1.3) mg/dL AST 35 (17-59) U/L ALT 41 (4-49) U/L Alkaline Phosphatase 57 (38-126) U/L Troponin I <0.012 (0.000-0.034) ng/mL Total Protein 7.3 (6.3-8.2) g/dL Albumin 4.6 (3.5-5.0) g/dL Urine Color Urine Appearance (Clear) Urine pH (5.0-8.0) Ur Specific [place] (1.001-1.035) Urine Protein (Negative) Urine Glucose (UA) (Negative) Urine Ketones (Negative) Urine Blood (Negative) Urine Nitrite (Negative) Urine Bilirubin (Negative) Urine Urobilinogen (<2.0) mg/dL Ur Leukocyte Esterase (Negative) Disposition Clinical Impression: Chest pain Disposition: ADMITTED IP TO THIS HOSP Referrals: Sree Kohler MD [Primary Care Provider] - 1-2 days Time of Disposition: 15:19
--- NOTE | 2023-08-20 14:17 | XR ---
EXAMINATION TYPE: XR chest 2V DATE OF EXAM: 08/20/2023 COMPARISON: 07/30/2021 INDICATION: Chest pain TECHNIQUE: Frontal and lateral views of the chest are obtained. FINDINGS: The heart size is normal. The pulmonary vasculature is normal. The lungs are clear. Spondylosis is within the thoracic spine. IMPRESSION: 1. No acute pulmonary process.
[2023-08-20] MEDS: ASPIRIN 81 MG PO STA ×2 (14:19→14:23)
[2023-08-20 14:24] LABS: ALT 41 U/L (4-49); AST 35 U/L (17-59); African American GFR (CKD) >90 (>60 ml/min/1.73 sqM); Albumin 4.6 g/dL (3.5-5.0); Alkaline Phosphatase 57 U/L (38-126); Anion Gap 11 mmol/L; Blood Urea Nitrogen 22 mg/dL (9-20); Calcium 9.4 mg/dL (8.4-10.2); Carbon Dioxide 26 mmol/L (22-30); Chloride 100 mmol/L (98-107); Glucose 99 mg/dL (74-99); Magnesium 1.9 mg/dL (1.6-2.3); Non-African American GFR(CKD) 82 (>60 ml/min/1.73 sqM); Potassium 4.1 mmol/L (3.5-5.1); Sodium 137 mmol/L (137-145); Total Bilirubin 0.9 mg/dL (0.2-1.3); Total Protein 7.3 g/dL (6.3-8.2)
[2023-08-20] MEDS ORDERED: NITROGLYCERIN SL TABS 0.4 MG TAB SUBLINGUAL PRN (15:20)
--- NOTE | 2023-08-20 16:06 | P.HPIM ---
History of Present Illness H&P Date: 08/20/23 58 year old M with PMH of HTN. HLD, Sarcoidosis presents to the ED for chest pain. Chest pain on an off since beginning of July. Chest pain can occur at any time, described as sharp and stabbing, radiating to the left jaw and shoulder. Sometimes related to eating meals. No diaphoresis, N/V, shortness of breath or palpitations. No changes with movement or deep inspiration. Non exertional. Reports a cardiac cath at [facility] > 10 years ago which was normal. Last stress echo 07/2021 negative. Does not smoke cigarettes, no EtOH. In the ED, he underwent extensive evaluations: Vital signs stable. CBC unremarkable (except lymphocyte count 0.7). Coag panel within normal limits. CMP BUN 22. Troponin < 0.012. CXR no acute process. EKG no ST or T wave changes. Patient is admitted for chest pain, rule out ACS, Cardiology consultation. General: non toxic, no distress, appears at stated age Derm: warm, dry Head: atraumatic, normocephalic, symmetric Eyes: EOMI, no lid lag, anicteric sclera Mouth: no lip lesion, mucus membranes moist Cardiovascular: S1S2 reg, no murmur Lungs: Clear to auscultation bilateral, no rhonchi, no rales , no accessory muscle use Ext: no gross muscle atrophy, no edema, no contractures Neuro: no focal neuro deficits Psych: Alert, oriented, appropriate affect Based on my assessment of this patient, this patient meets a high complexity level of care. Patient has an acute diagnosis of chest pain that poses a threat to life or bodily function. Chest pain: Atypical. Initial troponin negative. Last stress echo as above. Trend Trop/EKG to rule out ACS. ASA 81 mg PO QD. Telemetry monitoring. Echocardiogram. Cardiology consultation. Hypertension: HCTZ 25 mg PO QD. Lisinopril 10 mg PO QHS. Metoprolol 25 mg PO QD. HDL: Lipitor as above. CODE STATUS: FULL CODE DVT Prophylaxis: Lovenox SQ GI Prophylaxis: Designated medical POA if patient is not able to make medical decisions for themselves: I have reviewed the following career consultant notes: I have reviewed the results of the following tests: As above. I have ordered the following tests: Troponin. Echo. I have discussed the care of this patient with the following independent historian: at bedside. I have independently interpreted the following test below: CXR as above. I have discussed the management of this patient with the following physician: Discussed with Dr. Clifford. Past Medical History Past Medical History: Hyperlipidemia, Hypertension Additional Past Medical History / Comment(s): sarcoidosis History of Any Multi-Drug Resistant Organisms: None Reported Past Surgical History: Appendectomy, Orthopedic Surgery Additional Past Surgical History / Comment(s): chest tubes place Past Anesthesia/Blood Transfusion Reactions: No Reported Reaction Past Psychological History: No Psychological Hx Reported Smoking Status: Never smoker Past Alcohol Use History: Occasional Past Drug Use History: None Reported - Past Family History Father Family Medical History: CVA/TIA, Myocardial Infarction ([place]) Additional Family Medical History / Comment(s): triple vessel CABG Mother Family Medical History: Diabetes Mellitus Additional Family Medical History / Comment(s): brain aneurysm Medications and Allergies Home Medications Medication Instructions Recorded Confirmed Type Aspirin EC [Ecotrin Low Dose] 81 mg PO HS 10/11/18 08/20/23 History hydroCHLOROthiazide [Hydrodiuril] 25 mg PO DAILY 10/11/18 08/20/23 History Tamsulosin HCl [Flomax] 0.4 mg PO DAILY 07/30/21 08/20/23 History Atorvastatin [Lipitor] 40 mg PO HS 30 Days #30 tablet 07/31/21 08/20/23 Rx Cholecalciferol (Vitamin D3) 75 mcg PO HS 08/20/23 08/20/23 History [Vitamin D3 (3000 Iu)] Metoprolol Succinate (ER) [Toprol 25 mg PO DAILY 08/20/23 08/20/23 History Xl] Multivitamins, Thera [Multivitamin 1 tab PO HS 08/20/23 08/20/23 History (formulary)] lisinopriL [Zestril] 10 mg PO HS 08/20/23 08/20/23 History Allergies Allergy/AdvReac Type Severity Reaction Status Date / Time No Known Allergies Allergy Verified 08/20/23 15:05 Physical Exam Vitals: Vital Signs Temp Pulse Resp BP Pulse Ox 08/20/23 13:35 97.9 F 70 16 173/86 98 Intake and Output 08/20/23 08/20/23 08/20/23 06:59 14:59 22:59 Other: Weight 88.451 kg Results CBC & Chem 7: 08/20/23 13:49 08/20/23 13:49 Labs: Abnormal Lab Results - Last 24 Hours (Table) 08/20/23 08/20/23 Range/Units 13:49 13:49 Lymphocytes # 0.7 L (1.0-4.8) k/uL BUN 22 H (9-20) mg/dL
[2023-08-20] MEDS: NITROGLYCERIN OINT 1 INCH/GM PACKET TOPICAL SCH ×2 (17:10→23:19)
[2023-08-20] MEDS ORDERED: lisinopriL 10 MG TAB PO SCH (21:00)
[2023-08-20] MEDS ORDERED: ATORVASTATIN 40 MG TAB PO SCH (21:00)
[2023-08-21] MEDS: NITROGLYCERIN OINT 1 INCH/GM PACKET TOPICAL SCH (05:12)
[2023-08-21 06:16] VITALS: RESP 18
[2023-08-21] MEDS ORDERED: ASPIRIN 325 MG TAB PO SCH (09:00)
[2023-08-21] MEDS ORDERED: ENOXAPARIN 40 MG/0.4 ML SYRINGE SQ SCH (09:00)
[2023-08-21] MEDS ORDERED: METOPROLOL SUCCINATE (ER) 25 MG TAB.ER.24H PO SCH (09:00)
[2023-08-21] MEDS ORDERED: hydroCHLOROthiazide 25 MG TAB PO SCH (09:00)
[2023-08-21] MEDS ORDERED: ASPIRIN 81 MG PO SCH (09:00)
[2023-08-21] MEDS ORDERED: TAMSULOSIN 0.4 MG CAP.ER.24H PO SCH (09:00)
[2023-08-21 10:58] LABS: Chol/HDL Ratio 3.65 Ratio
--- NOTE | 2023-08-21 13:02 | P.CRDCN ---
History of Present Illness Consult date: 08/21/23 Consult reason: chest pain History of present illness: History of present illness: This is a 58-year-old male patient of Dr. MAURY Young with past medical history of hypertension, hyperlipidemia, heavy alcohol use, family history of premature coronary artery disease. We have been asked to evaluate the patient for chest pain. Patient gives history that he started having sharp pain in his chest before Memo. He kind of blew it off and thought it was anxiety related because he knew he had 17 days off work but yesterday it seemed to be worse. It occurs at any time. PAIN is not related to activity and is not related to movement. No change with deep breathing. Patient was started on Nitrol ointment aspirin. Patient is seen today in the emergency center waiting for a bed on the observation unit. patient denies any smoking history. He does drink alcohol frequently while he was off work but usually it is only on the weekends. No history of diabetes. EKG sinus rhythm with no acute ST-T wave changes. Chest x-ray: No acute process CBC unremarkable. INR 0.9. Electrolytes normal. BUN 22 creatinines are 0.99. Troponin negative 3. Magnesium is 1.9. Liver function tests are normal. Urinalysis negative. Home cardiac medications: Aspirin 81 mg daily, Lipitor 40 mg daily, hydrochlorothiazide 25 mg daily, lisinopril 10 mg daily, Toprol-XL 25 mg daily. Echocardiogram performed 07/31/2021 revealed EF 55-60%, trace mitral regur gitation, trace tricuspid regurgitation. Stress test performed 07/31/2021 walked for 10:24 with normal echo and EKG. Review Of Systems: At the time of my exam: CONSTITUTIONAL: Denies fever or chills. CARDIOVASCULAR: Denies chest pain, Denies shortness of breath, no orthopnea, PND or palpitations. RESPIRATORY: Denies cough. GASTROINTESTINAL: Denies abdominal pain, diarrhea, constipation, nausea or vomiting. MUSCULOSKELETAL: Denies myalgias. NEUROLOGIC: Denies numbness, tingling or weakness. ENDOCRINE: Denies fatigue, weight change, polydipsia or polyurina. GENITOURINARY: Denies burning, hematuria or urgency with micturation. HEMATOLOGIC: Denies history of anemia or bleeding. Physical examination: Gen: This is a 58 year old male resting in the ER and appears to be in no acute distress. VS: reviewed HEENT: Head is atraumatic, normocephalic. Pupils equal, round. Sclerae is anicteric. NECK: Supple. No JVD. LUNGS: Clear to auscultation. No wheezes or rhonchi. No intercostal retraction s. HEART: Regular rate and rhythm. No murmur. ABDOMEN: Soft No tenderness. EXTREMITIES: No pedal edema. No calf tenderness. NEUROLOGICAL: Patient is awake, alert and oriented x3. Assessment: Atypical chest pain, acute coronary syndrome ruled out Hypertension Hyperlipidemia History of alcohol abuse Plan: resume patient's home cardiac medications Obtain stress echocardiogram today If stress testing is unremarkable, patient is cleared for discharge home and may follow-up in the office with Dr. Young. Thank you kindly for this consultation. Nurse practitioner note has been reviewed, I agree with documented findings and plan of care. Patient was seen and examined. Past Medical History Past Medical History: Hyperlipidemia, Hypertension Additional Past Medical History / Comment(s): sarcoidosis History of Any Multi-Drug Resistant Organisms: None Reported Past Surgical History: Appendectomy, Orthopedic Surgery Additional Past Surgical History / Comment(s): chest tubes place Past Anesthesia/Blood Transfusion Reactions: No Reported Reaction Past Psychological History: No Psychological Hx Reported Smoking Status: Never smoker Past Alcohol Use History: Occasional Past Drug Use History: None Reported - Past Family History Father Family Medical History: CVA/TIA, Myocardial Infarction ([place]) Additional Family Medical History / Comment(s): triple vessel CABG Mother Family Medical History: Diabetes Mellitus Additional Family Medical History / Comment(s): brain aneurysm Medications and Allergies Home Medications Medication Instructions Recorded Confirmed Type Aspirin EC [Ecotrin Low Dose] 81 mg PO HS 10/11/18 08/20/23 History hydroCHLOROthiazide [Hydrodiuril] 25 mg PO DAILY 10/11/18 08/20/23 History Tamsulosin HCl [Flomax] 0.4 mg PO DAILY 07/30/21 08/20/23 History Atorvastatin [Lipitor] 40 mg PO HS 30 Days #30 tablet 07/31/21 08/20/23 Rx Cholecalciferol (Vitamin D3) 75 mcg PO HS 08/20/23 08/20/23 History [Vitamin D3 (3000 Iu)] Metoprolol Succinate (ER) [Toprol 25 mg PO DAILY 08/20/23 08/20/23 History Xl] Multivitamins, Thera [Multivitamin 1 tab PO HS 08/20/23 08/20/23 History (formulary)] lisinopriL [Zestril] 10 mg PO HS 08/20/23 08/20/23 History Allergies Allergy/AdvReac Type Severity Reaction Status Date / Time No Known Allergies Allergy Verified 08/20/23 15:05 Physical Exam Vitals: Vital Signs Temp Pulse Resp BP Pulse Ox 08/21/23 07:21 68 18 117/77 96 08/21/23 05:54 98.0 F 62 18 101/65 99 08/21/23 04:00 98.0 F 55 L 17 84/55 98 08/20/23 23:00 97.9 F 59 L 17 98/57 97 08/20/23 20:00 57 L 18 123/72 97 08/20/23 16:39 62 18 133/84 96 08/20/23 13:35 97.9 F 70 16 173/86 98 Results 08/20/23 13:49 08/20/23 13:49 Cardiac Enzymes 08/20/23 08/20/23 08/20/23 Range/Units 13:49 13:49 16:54 AST 35 (17-59) U/L Troponin I <0.012 <0.012 (0.000-0.034) ng/mL 08/20/23 Range/Units 19:42 AST (17-59) U/L Troponin I <0.012 (0.000-0.034) ng/mL Coagulation 08/20/23 Range/Units 13:49 PT 10.0 (10.0-12.5) sec APTT 25.3 (22.0-30.0) sec CBC 08/20/23 Range/Units 13:49 WBC 6.0 (3.8-10.6) k/uL RBC 4.55 (4.30-5.90) m/uL Hgb 15.4 (13.0-17.5) gm/dL Hct 42.7 (39.0-53.0) % Plt Count 222 (150-450) k/uL Comprehensive Metabolic Panel 08/20/23 Range/Units 13:49 Sodium 137 (137-145) mmol/L Potassium 4.1 (3.5-5.1) mmol/L Chloride 100 (98-107) mmol/L Carbon Dioxide 26 (22-30) mmol/L BUN 22 H (9-20) mg/dL Creatinine 0.99 (0.66-1.25) mg/dL Glucose 99 (74-99) mg/dL Calcium 9.4 (8.4-10.2) mg/dL AST 35 (17-59) U/L ALT 41 (4-49) U/L Alkaline Phosphatase 57 (38-126) U/L Total Protein 7.3 (6.3-8.2) g/dL Albumin 4.6 (3.5-5.0) g/dL Current Medications Generic Name Dose Route Start Last Admin Trade Name Freq PRN Reason Stop Dose Admin Aspirin 81 mg 08/21/23 09:00 Aspirin 81 Mg PO DAILY [facility] Atorvastatin Calcium 40 mg 08/20/23 21:00 08/20/23 20:02 Atorvastatin 40 Mg Tab PO 40 mg HS [facility] Administration Enoxaparin Sodium 40 mg 08/21/23 09:00 Enoxaparin 40 Mg/0.4 Ml Syringe SQ DAILY [facility] Hydrochlorothiazide 25 mg 08/21/23 09:00 Hydrochlorothiazide 25 Mg Tab PO DAILY [facility] Lisinopril 10 mg 08/20/23 21:00 08/20/23 20:02 Lisinopril 10 Mg Tab PO 10 mg HS [facility] Administration Metoprolol Succinate 25 mg 08/21/23 09:00 Metoprolol Succinate (Er) 25 Mg Tab.Er.24h PO DAILY [facility] Nitroglycerin 0.4 mg 08/20/23 15:20 Nitroglycerin Sl Tabs 0.4 Mg Tab SUBLINGUAL Q5M PRN Chest Pain Nitroglycerin 1 inch 08/20/23 18:00 08/21/23 05:12 Nitroglycerin Oint 1 Inch/Gm Packet TOPICAL Not Given Q6HR [facility] Tamsulosin HCl 0.4 mg 08/21/23 09:00 Tamsulosin 0.4 Mg Cap.Er.24h PO DAILY [facility] 08/20/23 13:49 08/20/23 13:49
--- NOTE | 2023-08-21 15:31 | P.PN ---
Subjective Progress Note Date: 08/21/23 Patient is a 58 year old male with history of sarcoidosis (treated in the past with 9 months of prednisone, hypertension, dyslipidemia, and BPH who presented to the hospital with complaints of chest pain that has been going on for the last month. In the ER he underwent extensive evaluation. Initial vital signs showed mildly elevated blood pressure at 173/86. Initial laboratory analysis was unremarkable. Initial troponin was negative. Initial EKG showed normal sinus rhythm at a rate of [address]-T wave changes. He was placed in observation. Cardiology was consulted. His troponins remained negative but his cholesterol profile did come back elevated with a total cholesterol of 213 and LDL of 95. He was seen by cardiology who recommended echocardiogram and stress test. Patient seen and examined at bedside. He complains of some chest discomfort overnight last night. He states it is intermittent and sometimes at night sometimes during the day and can occur at any point in time. He does indicate that he has had increased stress recently at home. He denies any nausea vomiting or acid reflux type symptoms. 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 Vital signs reviewed General: Nontoxic, no distress, appears at stated age Cardiovascular: S1S2 reg, no murmur, positive posterior tibial pulse bilateral, Lungs: CTA bilateral, no rhonchi, no rales, no accessory muscle use Abdominal: Soft, nontender to palpation, no guarding, no appreciable organomegaly Musculoskeletal: Patient does have recurrence and pain with palpation of the left side of his chest wall. He also has a positive Spurling's test on the left. He has a negative shoulder exam on the left with no pain with abduction, adduction, supination, pronation. Ext: No gross muscle atrophy, no edema b/l lower extremities, no contractures Neuro: CN II-XI grossly intact, no focal neuro deficits Psych: Alert, oriented, appropriate affect Assessment/Plan: Chest Pain, undetermined etiology -Plan is for echocardiogram and stress test today. -Discussed with patient that I do feel he may have a musculoskeletal etiology given his pain to palpation of the chest wall and that if stress test is negative I recommend a course of NSAIDs and Flexeril at night. He is in agreement with plan of care. He will follow-up with his [facility] Luisa srinivasan's office after discharge. -Cardiology note reviewed. Await stress test results and if unremarkable can follow-up in the office with Dr. Young. -Hold metoprolol given need for stress test this morning. Continue with lisinopril 10 mg daily, hydrochlorothiazide 25 mg daily, aspirin 81 mg daily, and Lipitor 40 mg daily. Chronic: Hypertension, dyslipidemia, sarcoidosis, BPH Imaging: None new Data Review: Troponin remains negative. Cholesterol 213, LDL 95, triglycerides 298 Objective - Vital Signs Vital signs: Vital Signs Temp 98.0 F 08/21/23 05:54 Pulse 59 L 08/21/23 08:35 Resp 18 08/21/23 08:35 BP 133/86 08/21/23 08:35 Pulse Ox 96 08/21/23 08:49 FiO2 Intake & Output 08/20/23 08/21/23 08/21/23 18:59 06:59 18:59 Weight 88.451 kg - Labs CBC & Chem 7: 08/20/23 13:49 08/20/23 13:49 Labs: Abnormal Lab Results - Last 24 Hours (Table) 08/20/23 Range/Units 13:49 Triglycerides 298.00 H (0.00-149.00) mg/dL Cholesterol 213.00 H (0.00-200.00) mg/dL VLDL Cholesterol, Calc 59.60 H (5.00-40.00) mg/dL
--- NOTE | 2023-08-21 17:14 | CA ---
Transthoracic Echo Report Name: Jose Bee Age: 58 Gender: M : 1965 Exam Date: 08/21/2023 12:29 Exam Location: [facility] Ht (in): 63 Wt (lb): 180 Ordering Physician: Miki Albright MD Attending/Referring Phys: [employer] Operations Charley Palma RDCS Procedure CPT: Indications: CP Cardiac Hx: Technical Quality: Good Contrast 1: Total Dose (mL): Contrast 2: Total Dose (mL): MEASUREMENTS (Male / Female) Normal Values 2D ECHO LV Diastolic Diameter PLAX 4.2 cm 4.2 - 5.9 / 3.9 - 5.3 cm LV Systolic Diameter PLAX 2.9 cm IVS Diastolic Thickness 1.3 cm 0.6 - 1.0 / 0.6 - 0.9 cm LVPW Diastolic Thickness 1.5 cm 0.6 - 1.0 / 0.6 - 0.9 cm LV Relative Wall Thickness 0.7 RV Internal Dim ED PLAX 3.4 cm LA Systolic Diameter LX 3.5 cm 3.0 - 4.0 / 2.7 - 3.8 cm LV Diastolic Volume MOD 4C 88.1 cm??? LV Systolic Volume MOD 4C 46.1 cm??? LV Ejection Fraction MOD 4C 47.7 % LV Cardiac Index MOD 4C 1736.8 cm???/min???m??? LV Diastolic Length 4C 8.9 cm LV Systolic Length 4C 7.4 cm LV Diastolic Volume MOD 2C 100.0 cm??? LV Systolic Volume MOD 2C 26.2 cm??? LV Ejection Fraction MOD 2C 73.9 % LV Cardiac Index MOD 2C 3052.8 cm???/min???m??? LV Diastolic Length 2C 8.6 cm LV Systolic Length 2C 6.7 cm LA Volume 52.6 cm??? 18 - 58 / 22 - 52 cm??? LA Volume Index 27.2 cm???/m??? 16 - 28 cm???/m??? M-MODE Aortic Root Diameter MM 3.7 cm MV E Point Septal Separation 0.7 cm AV Cusp Separation MM 2.5 cm DOPPLER AV Peak Velocity 110.3 cm/s AV Peak Gradient 4.9 mmHg MV Area PHT 3.9 cm??? Mitral E Point Velocity 52.6 cm/s Mitral A Point Velocity 72.8 cm/s Mitral E to A Ratio 0.7 MV Deceleration Time 195.8 ms MV E' Velocity 7.8 cm/s Mitral E to MV E' Ratio 6.7 TR Peak Velocity 275.9 cm/s TR Peak Gradient 30.5 mmHg Right Ventricular Systolic Press 35.4 mmHg FINDINGS Left Ventricle Left ventricular ejection fraction is estimated at 55-60 %. Left ventricular cavity size normal. Mildly increased septal wall thickness. Right Ventricle Mild right ventricular dilatation. Mild pulmonary hypertension. Right Atrium Normal right atrial size. Left Atrium Normal left atrial size. Mitral Valve Structurally normal mitral valve. No mitral stenosis, regurgitation or prolapse. Aortic Valve Trileaflet aortic valve. No aortic valve stenosis or regurgitation. Tricuspid Valve Structurally normal tricuspid valve. Mild tricuspid regurgitation. Pulmonic Valve Structurally normal pulmonic valve. Trace pulmonic regurgitation. Pericardium No pericardial effusion. Aorta Normal size aortic root and proximal ascending aorta. CONCLUSIONS Normal LV function Previewed by: Dr. Shabbir Lin MD (Electronically Signed) Final Date: 21 August 2023 17:13
--- NOTE | 2023-08-21 17:16 | CA ---
Stress Echo Report Jose Bee Age: 58 Gender: M : 1965 Exam Date: 08/21/2023 12:08 Exam Location: [facility] Ht (in): 70 Wt (lb): 195 Ordering Physician: Amanda Lopez Referring Physician: [id number] [employer] Hand: Arthur Hamilton Technologist Procedure CPT: Indication: CP ICD-9 Codes: Rhythm: Patient History: Cardiac Medications: see chart Medications in past 24 hours: Contrast: N/A Stress Results Protocol: Aneudy Total dose(mL): Exercise Duration (min:sec): 9:[address] Depression (mm): Angina Score: Hart Score: METS: 11.3 Resting HR: 61 Resting BP: 122 / 52 Peak HR: 153 Peak BP: 149 / 60 Max Predicted HR: 160 96 % Max Predicted HR Target HR: 136 Double Product: [id number] Stress Summary: BP Response: Reason for Termination: Reached target heart rate or work-load Cardiac Symptoms: Test terminated after reaching target heart rate (85% max predicted) ECG Analysis Resting ECG: Normal sinus rhythm normal axis normal intervals Stress ECG: Patient exercised on Aneudy protocol for 9 minutes and 40 seconds achieving 96% of predicted maximal heart rate without chest pain or diagnostic ST segment depression Arrhythmia: Echo Analysis Resting Echo: Normal left ventricular size wall motion systolic function Peak Echo Analysis: Normal hyperdynamic response of all segments of myocardium noted MEASUREMENTS (Male/Female) Normal Values CONCLUSIONS Good exercise tolerance Negative stress test by EKG criteria Negative stress echo Dr. Shabbir Lin MD (Electronically Signed) Final Date: 21 August 2023 17:15
--- NOTE | 2023-08-21 18:08 | P.DS ---
Providers Date of admission: 08/20/23 15:22 Expected date of discharge: 08/21/23 Attending physician: Kalani Vuong DO Consults: 08/20/23 15:20 Consult Physician Urgent Consulting Provider: [facility] Consult Reason/Comments: Chest pain Do you want consulting provider notified?: Yes Primary care physician: Sree Kohler [facility] Course: Discharge Diagnosis: Non cardiac chest pain Cervical Strain HLD HTN Sarcodiosis Hospital Course: Patient is a 58 year old male with history of sarcoidosis (treated in the past with 9 months of prednisone, hypertension, dyslipidemia, and BPH who presented to the hospital with complaints of chest pain that has been going on for the last month. In the ER he underwent extensive evaluation. Initial vital signs showed mildly elevated blood pressure at 173/86. Initial laboratory analysis was unremarkable. Initial troponin was negative. Initial EKG showed normal sinus rhythm at a rate of [address]-T wave changes. He was placed in observation. Cardiology was consulted. His troponins remained negative but his cholesterol profile did come back elevated with a total cholesterol of 213 and LDL of 95. He was seen by cardiology who recommended echocardiogram and stress test. Echocardiogram showed ejection fraction of 55% with no significant valvular abnormalities. Stress echo was within normal limits. He was determined stable for discharge home. It was felt that his chest pain is likely musculoskeletal in origin. Follow-up: He will take Motrin 600 mg 3 times daily for the next 3 days and then every 8 hours as needed. While utilizing [id number] Motrin he will take an [id number] antiacid. He will take Flexeril at night. He will follow- up with Dr. Kohler's nurse practitioner for further recommendations. He also plans on seeing a chiropractor and massage therapist. He will follow with Dr. Young in the basin operator office for physical exam see progress note same date. A total of 32 minutes of time were spent preparing this complex discharge summary. Patient was discharged on 08/21/23. This dictation was prepared using [employer] voice recognition software. Though every attempt is made to correct errors during dictation some may still exist. Plan - Discharge Summary New Discharge Prescriptions: New Cyclobenzaprine [Flexeril] 5 mg PO TID PRN #15 tablet PRN Reason: Muscle Spasm Ibuprofen [Motrin] 600 mg PO Q8HR PRN #30 tab PRN Reason: Pain Continue Aspirin EC [Ecotrin Low Dose] 81 mg PO HS hydroCHLOROthiazide [Hydrodiuril] 25 mg PO DAILY Atorvastatin [Lipitor] 40 mg PO HS 30 Days #30 tablet Multivitamins, Thera [Multivitamin (formulary)] 1 tab PO HS Cholecalciferol (Vitamin D3) [Vitamin D3 (3000 Iu)] 75 mcg PO HS Metoprolol Succinate (ER) [Toprol XL] 25 mg PO DAILY Tamsulosin HCl [Flomax] 0.4 mg PO DAILY lisinopriL [Zestril] 10 mg PO HS Discharge Medication List Aspirin EC [Ecotrin Low Dose] 81 mg PO HS 10/11/18 [History] hydroCHLOROthiazide [Hydrodiuril] 25 mg PO DAILY 10/11/18 [History] Tamsulosin HCl [Flomax] 0.4 mg PO DAILY 07/30/21 [History] Atorvastatin [Lipitor] 40 mg PO HS 30 Days #30 tablet 07/31/21 [Rx] Cholecalciferol (Vitamin D3) [Vitamin D3 (3000 Iu)] 75 mcg PO HS 08/20/23 [History] Metoprolol Succinate (ER) [Toprol XL] 25 mg PO DAILY 08/20/23 [History] Multivitamins, Thera [Multivitamin (formulary)] 1 tab PO HS 08/20/23 [History] lisinopriL [Zestril] 10 mg PO HS 08/20/23 [History] Cyclobenzaprine [Flexeril] 5 mg PO TID PRN #15 tablet 08/21/23 [Rx] Ibuprofen [Motrin] 600 mg PO Q8HR PRN #30 tab 08/21/23 [Rx] Follow up Appointment(s)/Referral(s): Annalisa Young MD [STAFF PHYSICIAN] - 1 Week Sree Kohler MD [Primary Care Provider] - 1-2 days Activity/Diet/Wound Care/Special Instructions: Activity: As tolerated Diet: Heart Healthy Special Instructions: Take Motrin 600 mg three times daily for the next 3 days, then you can use 3 times daily as needed for pain While taking motrin around the clock please take an over the counter antacid Take Flexeril at night for the next 3 nights. It can cause you to feel nory karina/euphoric. Do not take Flexeril while driving or operating heavy machinery. Discharge Disposition: HOME SELF-CARE
[2023-08-21 18:24] VITALS: BP 136/80; PULSE 74; TEMP 97.8
== END 2023-08-21 18:16 | disposition home or self-care (01) ==
LOC: EC 13:30 → 6NMEDSUR 15:22
PROVIDERS: ADMIT Internal Medicine; ATTEND Internal Medicine
DX: R07.89 Other chest pain (principal); I10 Essential (primary) hypertension; E78.00 Pure hypercholesterolemia, unspecified; D86.9 Sarcoidosis, unspecified; N40.0 Benign prostatic hyperplasia without lower urinary tract symptoms; F10.10 Alcohol abuse, uncomplicated; S16.1XXA Strain of muscle, fascia and tendon at neck level, initial encounter; X58.XXXA Exposure to other specified factors, initial encounter; Z79.82 Long term (current) use of aspirin; Z79.899 Other long term (current) drug therapy; Z82.49 Family history of ischemic heart disease and other diseases of the circulatory system
CPT/HCPCS: 96372; 99285; 36415; 94760; 93005 ×2; 93306; 93351; 80061; 80053; 83735; 84484; 85025; 85610; 85730; 81003; 71046; G0378 ×2; J1650

== ENCOUNTER 2024-09-10 07:18 | Day surgery (SDC) | payer BC ==
--- NOTE | 2024-09-09 19:52 | P.GSHP ---
History of Present Illness H&P Date: 09/09/24 Chief Complaint: Left orchialgia The patient is a 59-year-old white male with a several year history of left orchialgia, which has recently worsened. He has a known left spermatocele which has increased in size and now measures approximately 3 x 5 cm in size. Alternative treatment options were reviewed, and he has elected to undergo spermatocelectomy. - Cardiovascular Cardiovascular: Reports high blood pressure Past Medical History Past Medical History: Hyperlipidemia, Hypertension, Skin Disorder Additional Past Medical History / Comment(s): sarcoidosis, recently had the FLu in early August took tamiflu. dry itchy skin to lower legs uses steroid cream prn. left spermatocele History of Any Multi-Drug Resistant Organisms: None Reported Past Surgical History: Appendectomy, Orthopedic Surgery Additional Past Surgical History / Comment(s): chest tubes place r/t sarcoidosis, partial left pointer finger amputation, colonoscopy, vasectomy Past Anesthesia/Blood Transfusion Reactions: No Reported Reaction Smoking Status: Never smoker - Past Family History Father Family Medical History: Coronary Artery Disease (CAD), Myocardial Infarction (SD) Additional Family Medical History / Comment(s): triple vessel CABG Mother Family Medical History: Diabetes Mellitus Additional Family Medical History / Comment(s): brain aneurysm Medications and Allergies Home Medications Medication Instructions Recorded Confirmed Type Aspirin EC [Ecotrin Low Dose] 81 mg PO HS 10/11/18 09/07/24 History hydroCHLOROthiazide [Hydrodiuril] 25 mg PO DAILY 10/11/18 09/07/24 History Tamsulosin HCl [Flomax] 0.4 mg PO DAILY 07/30/21 09/07/24 History Atorvastatin [Lipitor] 40 mg PO HS 30 Days #30 tablet 07/31/21 09/07/24 Rx Cholecalciferol (Vitamin D3) 75 mcg PO HS 08/20/23 09/07/24 History [Vitamin D3 (3000 Iu)] Metoprolol Succinate (ER) [Toprol 25 mg PO DAILY 08/20/23 09/07/24 History XL] Multivitamins, Thera [Multivitamin 1 tab PO HS 08/20/23 09/07/24 History (formulary)] lisinopriL [Zestril] 10 mg PO HS 08/20/23 09/07/24 History Allergies Allergy/AdvReac Type Severity Reaction Status Date / Time No Known Allergies Allergy Verified 09/07/24 13:43 Surgical - Exam - General well developed, well nourished, no distress - Respiratory normal respiratory effort - Abdomen Abdomen: soft, non tender, no guarding, no rigid, no rebound - Genitourinary Normal phallus, normal testes. A left spermatocele is present, measuring approximately 3 x 5 cm in size. - Psychiatric oriented to time, oriented to person, oriented to place, speech is normal, memory intact Assessment and Plan (1) Spermatocele of epididymis, unspecified Status: Acute Code(s): N43.40 - SPERMATOCELE OF EPIDIDYMIS, UNSPECIFIED SNOMED Code(s): 68504014 Plan: Left spermatocelectomy. The procedure has been reviewed in detail with the patient. He has been made aware of potential risks, which include anesthesia, bleeding, infection and testicular injury. The patient is aware of the fact that depending upon the relationship between the spermatocele and the epididymis, a left epididymectomy may be preferred. He is also aware of the fact that his pain may fail to resolve.
[2024-09-10] MEDS ORDERED: droPERidol 5 MG/2 ML VIAL IVP ONE (07:29)
[2024-09-10] MEDS ORDERED: LIDOCAINE 1% (10MG/ML) FOR IV START INTRADERMA PRN (07:29)
[2024-09-10] MEDS ORDERED: HYDROmorphone 0.5 MG/0.5 ML SYRINGE IVP PRN (07:29)
[2024-09-10] MEDS: LACTATED RINGERS 1,000 ML IV SCH (07:46)
[2024-09-10] MEDS: ONDANSETRON 4 MG/2 ML VIAL IVP ONE (07:46)
[2024-09-10] MEDS: DEXAMETHASONE SOD PHOSPHATE 4 MG/ML 1 ML VIAL IV ONE (07:46)
[2024-09-10] MEDS: IV FLUID CONTINUATION 1,000 ML IV ONE (07:48)
[2024-09-10] MEDS ORDERED: PROPOFOL 10 MG/ML 20 ML VIAL IV ONE (08:19)
[2024-09-10] MEDS ORDERED: MIDAZOLAM 2 MG/2 ML VIAL ONE (08:19)
[2024-09-10] MEDS ORDERED: ePHEDrine 50 MG/ML 1 ML VIAL ONE (08:19)
[2024-09-10] MEDS ORDERED: LIDOCAINE 1% INJ 10MG/ML (20 ML MDV) ONE (08:19)
[2024-09-10] MEDS ORDERED: fentaNYL (PF) 50 MCG/ML 2 ML AMP ONE (08:19)
[2024-09-10] MEDS: BUPIVACAINE (PF) 0.5% 30 ML VIAL SQ ONE ×2 (09:06)
[2024-09-10 10:01] VITALS: TEMP 97.3
--- NOTE | 2024-09-10 10:08 | P.OP ---
Date of Procedure: 09/10/24 Preoperative Diagnosis: Left Spermatocele Postoperative Diagnosis: Same Procedure(s) Performed: Left Epididymectomy Anesthesia: DOUGLASA Surgeon: Sonny Reaves Estimated Blood Loss (ml): 10 IV fluids (ml): 500 Pathology: other Condition: stable Disposition: PACU Indications for Procedure: The patient is a 59-year-old white male with a several year history of left orchialgia, which has recently worsened. He has a known left spermatocele which has increased in size and now measures approximately 3 x 5 cm in size. Alternative treatment options were reviewed, and he has elected to undergo spermatocelectomy. Operative Findings: Large left spermatocele Description of Procedure: The patient was taken to the operating room and placed in the supine position. The external genitalia was prepped draped sterilely. The scalpel was used to make a left anterior scrotal incision along Chio's lines. The Bovie electrocautery was used to incise the underlying dartos fascia, down to the tunica vaginalis. The tunica vaginalis was opened, and a small amount of hydrocele fluid was drained. The testicle was delivered through the incision. A large spermatocele was seen to arise from the upper pole of the left epididymis. It was immediately determined that an epididymectomy would be preferred to a spermatocelectomy, given the broad attachment of the spermatocele to the epididymis. The epididymis was detached from the testicle at the rete testis, and then dissected away from the testicle using a combination of sharp and blunt dissection with care taken to preserve blood flow to the testicle. Once the epididymis had been dissected away from the testicle, the vas deferens was ligated and divided, allowing removal of the specimen. Any bleeders at this time were controlled with electrocautery. The testicle remained pink and normal in appearance. The rete testis was oversewn using 3-0 Vicryl suture. The tunica vaginalis was reapproximated to the testicle using 3-0 Vicryl suture. 0.5% Marcaine was injected into the spermatic cord. The testicle was returned to the left hemiscrotum. The dartos fascia was closed using 3-0 Vicryl suture in a running fashion. The skin was closed using 3-0 chromic suture in a running fashion. Dermabond was applied over the incision. All sponge and needle counts were correct. Surgical fluffs were placed over the scrotum, followed by scrotal support. The patient tolerated the procedure well was taken to the recovery in stable addition.
[2024-09-10 10:51] VITALS: BP 145/71; PULSE 69; RESP 20
== END 2024-09-10 11:10 | disposition home or self-care (01) ==
LOC: OR 07:18
PROVIDERS: ATTEND Urology
DX: N43.41 Spermatocele of epididymis, single (principal); I10 Essential (primary) hypertension; E78.5 Hyperlipidemia, unspecified; D86.9 Sarcoidosis, unspecified; Z79.82 Long term (current) use of aspirin; Z79.899 Other long term (current) drug therapy
CPT/HCPCS: 54860; 88304; J2250; J1100; J0690; J2405; J2003; J3010; J2704; J0665